=== PATIENT | male | born 1945 | race Caucasian/White ===

== ENCOUNTER → 2018-01-24 16:06 | Outpatient (CLI) | payer MEDICARE, OTHER, SELFPAY ==
--- NOTE | 2018-01-24 16:08 | DI.RAD.S_ITS ---
PROCEDURE: XR FOOT RT MIN 3V INDICATIONS: foot pain TECHNIQUE: 3 views of the foot were acquired. COMPARISON: None. FINDINGS: Bones: No fractures or dislocations. No suspicious bony lesions. Soft tissues: No tibiotalar joint effusion. Achilles tendon appears normal. IMPRESSION: No trauma found, no source of foot pain identified. Dictated by: Laurent Hirsch M.D. on 01/24/2018 at 16:49 Approved by: Laurent Hirsch M.D. on 01/24/2018 at 16:50
== END ==
PROVIDERS: PCP Internal Medicine; Visit Provider Internal Medicine
DX: M79.671 Pain in right foot (principal)
CPT/HCPCS: 73630

== ENCOUNTER → 2018-01-28 17:36 | Outpatient (CLI) | payer MEDICARE, OTHER, SELFPAY ==
--- NOTE | 2018-01-28 17:39 | DI.MRI.S_ITS ---
PROCEDURE: MR ANKLE LT WO CON INDICATIONS: ACHILLES TENDON PAIN LEFT ANKLE TECHNIQUE: Noncontrast sagittal T1 spin echo and T2 fast spin echo with fat saturation, axial proton density fast spin echo and T2 fast spin echo with fat saturation, coronal T1 spin echo and T2 fast spin echo with fat saturation through the ankle/hindfoot. COMPARISON: None. FINDINGS: Image quality: Excellent. Bones and joints: No bone marrow contusions or fractures. Presumed subchondral degenerative cystic change in the head of the talus. No hindfoot coalitions. No osteochondral injuries of the talar dome. No pathologic joint effusions. Medial structures: The posterior tibialis, flexor digitorum longus, and flexor hallucis longus tendons are intact. The posterior tibial neurovascular bundle appears normal within the tarsal tunnel, without extrinsic mass effect. The deep layer (anterior and posterior tibiotalar ligaments) and superficial layer (tibionavicular, tibiospring, and tibiocalcaneal ligaments) of the deltoid ligament appear normal. The spring ligament components (superomedial calcaneonavicular, medioplantar oblique calcaneonavicular, and inferoplantar longitudinal ligaments) are intact. Lateral structures: The anterior talofibular, calcaneofibular, and posterior talofibular ligaments appear intact. More superiorly, the anterior and posterior tibiofibular ligaments appear intact, as is the intermalleolar ligament. The tibiofibular syndesmosis is normal in width at 2 mm or less. The peroneus longus and brevis tendons demonstrate normal location and morphology. Adjacent bony peroneal tubercle and retrotrochlear prominence are normal in size. The sinus tarsi demonstrates normal fatty signal, without edema, fibrosis, or cyst formation. Visualized sinus tarsi components (cervical ligament, interosseous talocalcaneal ligament, roots of the inferior extensor retinaculum) appear normal. The calcaneonavicular and calcaneocuboid components of the bifurcate ligament appear intact. The dorsal calcaneocuboid ligament appears intact. Anterior structures: The tibialis anterior, extensor hallucis longus, and extensor digitorum longus tendons appear intact. The dorsal talonavicular ligament appears intact. There is anteromedial and anterolateral hindfoot subcutaneous edema. Posterior and plantar structures: Achilles tendon is markedly thickened and demonstrates intrasubstance signal change in T2 hyperintensity. There is a partial rupture centered approximately 6.2 cm above the calcaneal attachment. There is adjacent soft tissue edema and peritendinitis. Medial and lateral bands of the plantar fascia are of normal thickness. IMPRESSION: Partial rupture of the Achilles tendon centered approximately 6.2 cm above the calcaneal attachment. Dictated by: Clement Peter M.D. on 01/31/2018 at 8:59 Approved by: Clement Peter M.D. on 01/31/2018 at 9:09
== END ==
PROVIDERS: Family Provider Internal Medicine; PCP Internal Medicine; Visit Provider Internal Medicine
DX: M25.572 Pain in left ankle and joints of left foot (principal); S86.012A Strain of left Achilles tendon, initial encounter
CPT/HCPCS: 73721

== ENCOUNTER → 2018-09-05 10:38 | Outpatient (CLI) | payer MEDICARE, OTHER, SELFPAY ==
[2018-09-05 11:22] LABS: Add Manual Diff / Slide Review NO; Basophils Absolute Auto 0 /uL (0-100); Basophils Percent Auto 0.4 % (0-2); Eosinophils Absolute Auto 100 /uL (0-450); Eosinophils Percent Auto 1.6 % (2-4); Hematocrit 46.3 % (41-53); Hemoglobin 15.7 g/dL (13.5-17.5); Lymphocytes Absolute Auto 2100 /uL (1100-4500); Lymphocytes Percent Auto 29.2 % (25-40); Mean Corpuscular HGB Conc 33.8 % (30-36); Mean Corpuscular Hemoglobin 32.3 PG (26-34); Mean Corpuscular Volume 95.5 fL (80-100); Monocytes Absolute Auto 600 /uL (0-900); Monocytes Percent Auto 8.4 % (3-14); Neutrophils Absolute Auto 4400 /uL (1500-7000); Neutrophils Percent Auto 60.4 % (50-75); Platelet Count 225 X10^3/uL (150-400); Red Blood Cell Count 4.85 X10^6/uL (4.5-5.9); Red Cell Distribution Width 12.8 % (11.6-14.8); White Blood Cell Count 7.2 X10^3/uL (4.5-11.0)
[2018-09-05 11:43] LABS: Alanine Aminotransferase 42 IU/L (21-72); Albumin 4.2 g/dL (3.5-5.0); Albumin Globulin Ratio 1.4 (1.0-2.8); Alkaline Phosphatase 68 U/L (38-126); Aspartate Aminotransferase 36 IU/L (17-59); BUN Creatinine Ratio 17.5 (6-22); Blood Urea Nitrogen 14 mg/dL (9-20); Calcium 8.9 mg/dL (8.4-10.2); Carbon Dioxide 26 mmol/L (22-32); Chloride 102 mmol/L (98-107); Cholesterol 82 mg/dL (140-199); Estimated Glomerular Filt Rate > 60.0 mL/min (>60); Glucose 192 mg/dL (80-110); HDL Cholesterol 26 mg/dL (40-60); HEMOLYSIS 21 (0-50); LDL Cholesterol Calculated 14 mg/dL (<100); Sodium 139 mmol/L (137-145); Total Protein 7.2 g/dL (6.3-8.2); Triglycerides 209 mg/dL (35-150)
[2018-09-05 11:45] LABS: Potassium 5.5 mmol/L (3.4-5.1)
== END ==
PROVIDERS: Family Provider Internal Medicine; PCP Internal Medicine; Visit Provider Internal Medicine
DX: E11.65 Type 2 diabetes mellitus with hyperglycemia (principal); I48.1 Persistent atrial fibrillation; R97.20 Elevated prostate specific antigen [PSA]; Z79.01 Long term (current) use of anticoagulants
CPT/HCPCS: 36415; 80053; 80061; 83036; 84153; 85025

== ENCOUNTER 2018-10-19 07:43 | Day surgery (SDC) | payer MEDICARE, OTHER, SELFPAY ==
--- NOTE | 2018-10-15 12:17 | PM.PREOP ---
Pre-operative Note Interval Note History & Physical reviewed/Exam performed by Physician: Yes Changes to H&P: No
--- NOTE | 2018-10-15 12:18 | PM.OP.1 ---
Operative Date/Time/Diagnoses Date of procedure: 10/19/18 Time of procedure: 08:45 Procedure & Clinicians Procedure: Toric Preoperative diagnoses: 1. Advanced left nuclear sclerotic and cortical cataract. 2. Astigmatism which he likes to correct with a toric intra-ocular lens. 3. Diabetes without retinopathy. 4. Treated blepharitis preoperatively. 5. Atrial fibrillation on warfarin. Postoperative diagnoses: 1. Cataract removed by phacoemulsification with placement of posterior chamber intraocular lens. Procedure: Phacoemulsification with posterior chamber intraocular lens implant Surgeon: Franci Maldonado MD Complications: None Specimen: None Implant: [id number] +19.5 [place] 088 Blood loss: None Anesthesia: Retrobulbar with monitored standby Description of procedure: Patient presents with a complaint of decreased vision due to advanced cataract which is affecting activities of daily living. The patient wants surgery to improve vision. He has elevated fasting blood glucose on the day of surgery and 4 uits of insulin given per-operatively. He elects a toric intraocular lens. He is normally not on insulin. His INR is 2.2 and is felt safe to proceed with cataract surgery as planned. The patient was taken to the operating room and proparacaine drops placed then indelible ink means were placed at the 180 and 90 degree meridian using a special marking device. Was then placed on the operating room table and given IV sedation. A retrobulbar block consisting of 6 cc of 2% xylocaine without epinephrine mixed half and half with 0.5% Marcaine with 1 cc of hyaluronidase added is placed between the medial and lateral 1/3 of the inferior orbital rim. Lid akinesia is obtain with 1% xylocaine with epinephrine infiltrated along the lid margin. The eye is manually massaged for 30 sec, prepped using Betadine solution, and draped in the usual sterile fashion. Temporal approach was made, a 1 mm side-port incision was made 90? from the proposed clear corneal incision position. Phenylephrine 1.5% mixed with 1% xylocaine 0.2 cc was placed into the anterior chamber. The anterior capsule could be visualized without capsular dye. Viscoat followed by Kait was then placed. A 2.6 mm clear incision with a 2.6 mm blade was placed. A 360 degree capsulorrhexis style capsulotomy was then performed with a cystitome needle on a Healon aided by the capsular dye. Hydrodelineation and hydrodissection were performed. The phacoemulsification unit is introduced, and sculpting notice used to groove the central lens. It is then removed in chopping mode. Epi nucleus is removed with epinuclear mode and irrigation aspiration was used to remove the peripheral cortex. The posterior capsule is polished. The intraocular lens is selected, inspected, power confirmed, and placed in the posterior chamber at the 088 degree meridian and viscoelastic removed from the underside of the lens. This position was confirmed with multiple markers. The pupil was not constricted with Miostat. The wound was stromally hydrated and tested for leaks, there was none and it was left sutureless. Vigamox 0.1 cc was placed into the anterior chamber. Kenalog 0.2 cc was placed in the superior subconjunctival space. A drop of antibiotic and was placed and the eye was patched and shielded. The patient was stable and returned to the recovery room in excellent condition. Dictated by: Franci Maldonado MD Copy to: [facility]
[2018-10-19] MEDS: PROPARACAINE 0.5% OPHTH SOL 2 DROPS EYE-OP (08:08)
[2018-10-19 08:13] VITALS: BP 109/79; PULSE 59; RESP 15; TEMP 36.7; O2SAT 98; BMI 28.8
[2018-10-19] MEDS: CATARACT EYE COMPOUND (10 DROPS/SYRINGE) 3 DROPS EYE-OP (08:13)
[2018-10-19] MEDS: INSULIN REGULAR 100 UNIT/ML 3 ML VIAL IV (08:48)
[2018-10-19] MEDS: CHONDROIDTIN/SOD HYALURONATE 1.05 ML SYRINGE INTRAOCULA (09:23)
[2018-10-19] MEDS: BALANCED SALT IRRIG SOLN NO.2 15 ML IRR (09:24)
[2018-10-19] MEDS: MOXIFLOXACIN OPHTH DROPS 3 ML BOTTLE 2 DROPS INJ (09:25)
[2018-10-19] MEDS: LIDOCAINE 1% W/EPI INJ 20 ML INJ (09:25)
[2018-10-19] MEDS: OFLOXACIN 0.3% OPHTH 5 ML 2 DROPS EYE-LEFT (09:26)
[2018-10-19] MEDS: NEOMYCIN/POLY/DEX OPHTH OINT 1 APPLIC EYE-LEFT (09:26)
[2018-10-19] MEDS: PHENYLEPHRINE/LIDOCAINE VIAL (OR) 0.2 ML EYE-OP (09:27)
[2018-10-19] MEDS: TRIAMCINOLONE 50 MG/5 ML VIAL INJ (09:27)
[2018-10-19] MEDS: BALANCED SALT IRRIG SOLN NO.2 500 ML, EPINEPHrine 1 MG IRR (09:28)
[2018-10-19] MEDS: LIDOCAINE 2% 4 ML, BUPIVACAINE 0.5% (PF) 4 ML, HYALURONIDASE 150 UNIT INJ (09:29)
[2018-10-19] MEDS: HYALURONATE SODIUM 10 MG/ML SYRINGE INJ (09:51)
[2018-10-19 09:56] VITALS: BP 124/78; PULSE 95; RESP 15; TEMP 36.7; O2SAT 99
== END 2018-10-19 10:11 | disposition home or self-care (01) ==
PROVIDERS: Family Provider Internal Medicine; PCP Internal Medicine; Visit Provider Ophthalmology
DX: H25.812 Combined forms of age-related cataract, left eye (principal); E11.9 Type 2 diabetes mellitus without complications; I48.91 Unspecified atrial fibrillation; Z79.01 Long term (current) use of anticoagulants
CPT/HCPCS: J0171; J2704; J3301; J3470; V2787

== ENCOUNTER 2018-11-02 07:40 | Day surgery (SDC) | payer MEDICARE, OTHER, SELFPAY ==
--- NOTE | 2018-10-29 10:14 | PM.PREOP ---
Pre-operative Note Interval Note History & Physical reviewed/Exam performed by Physician: Yes Changes to H&P: No H&P completed within 30 days and has changed as indicated here:: INR 1.6 this AM and fasting glucose 162. Stable to proceed to surgery.
--- NOTE | 2018-10-29 10:51 | P.OP_ITS ---
Operative Date/Time/Diagnoses Date of procedure: 11/02/18 Time of procedure: 08:45 Procedure & Clinicians Procedure: Preoperative diagnoses: 1. Right nuclear sclerotic cataract 2. Astigmatism which is to be corrected with a toric intraocular lens implant. 3. Diabetes without retinopathy. 4. Atrial fibrillation on warfarin. Postoperative diagnoses: 1. Cataract removal with phacoemulsification with toric posterior chamber intraocular lens implant placed. Procedure: Phacoemulsification with posterior chamber toric intraocular lens implant. Surgeon: Franci Maldonado MD Complications: None Specimen: None Implant: [id number]+21.0 [place] 089 Blood loss: None Anesthesia: Retrobulbar with monitored standby Description of procedure: Patient presents with a complaint of decreased vision due to cataract which is affecting activities of daily living. The patient wants surgery to improve vision and astigmatism. He is diabetic with variable blood sugars and is not normally on insulin. He is also on warfarin when he reduced but did not eliminate for surgery. Both his INR and glucose were measured prior to surgery. The patient was taken to the operating room and proparacaine drops placed. Indelible ink means were placed at the 90 and 180 degree meridian. The patient was placed on the operating room table and given IV sedation. A retrobulbar block consisting of 6 cc of 2% xylocaine without epinephrine mixed half and half with 0.5% Marcaine with 1 cc of hyaluronidase added is placed between the medial and lateral 1/3 of the inferior orbital rim. Lid akinesia is obtain with 1% xylocaine with epinephrine infiltrated along the lid margin. The eye is manually massaged for 30 sec, prepped using Betadine solution, and draped in the usual sterile fashion. Temporal approach was made, a 1 mm side-port incision was made 90? from the prop osed corneal wound. Phenylephrine 1.5% mixed with 1% xylocaine 0.2 cc was placed into the anterior chamber. Viscoat followed by Kait was then placed. A 2.6 mm clear incision with a 2.6 mm blade was placed at the 170 degree meridian. A 360 degree capsulorrhexis style capsulotomy was then performed with a cystitome needle on a Healon. Hydrodelineation and hydrodissection were performed. The phacoemulsification unit is introduced, and sculpting used to groove the central lens. It is then removed in chopping mode. Epi nucleus is removed with epinuclear mode and irrigation aspiration was used to remove the peripheral cortex. The posterior capsule is polished. The intraocular lens is selected, inspected, power confirmed, and placed in the posterior chamber at the desired meridian of 089 degrees. The pupil was not constricted. The wound was stromally hydrated and tested for leaks, there was none and it was left sutureless. Vigamox 0.1 cc was placed into the anterior chamber. Kenalog 0.2 cc was placed in the superior subconjunctival space. A drop of antibiotic and was placed and the eye was patched and shielded. The patient was stable and returned to the recovery room in excellent condition. Dictated by: Franci Maldonado MD Copy to: [facility]
[2018-11-02 08:01] VITALS: BP 122/89; PULSE 78; RESP 15; TEMP 36.1; O2SAT 78; BMI 28.5
[2018-11-02] MEDS: PROPARACAINE 0.5% OPHTH SOL 2 DROPS EYE-OP (08:06)
[2018-11-02] MEDS: CATARACT EYE COMPOUND (10 DROPS/SYRINGE) 3 DROPS EYE-OP (08:11)
--- NOTE | 2018-11-02 09:01 | SUR.OPER ---
Supine on eye stretcher, head on extension cradle secured with tape. Arms tucked at sides with blanket. Pillow under knees.
[2018-11-02] MEDS: MOXIFLOXACIN OPHTH DROPS 3 ML BOTTLE 2 DROPS INJ (09:04)
[2018-11-02] MEDS: TRIAMCINOLONE 50 MG/5 ML VIAL INJ ×2 (09:04→09:05)
[2018-11-02] MEDS: CHONDROIDTIN/SOD HYALURONATE 1.05 ML SYRINGE INTRAOCULA (09:05)
[2018-11-02] MEDS: BALANCED SALT IRRIG SOLN NO.2 15 ML IRR (09:06)
[2018-11-02] MEDS: HYALURONATE SODIUM 10 MG/ML SYRINGE INJ (09:06)
[2018-11-02] MEDS: NEOMYCIN/POLY/DEX OPHTH OINT 1 APPLIC EYE-RIGHT (09:07)
[2018-11-02] MEDS: OFLOXACIN 0.3% OPHTH 5 ML 2 DROPS EYE-RIGHT (09:08)
[2018-11-02] MEDS: BALANCED SALT IRRIG SOLN NO.2 500 ML, EPINEPHrine 1 MG IRR (09:09)
[2018-11-02] MEDS: LIDOCAINE 1% W/EPI INJ 20 ML INJ (09:11)
[2018-11-02] MEDS: LIDOCAINE 2% 4 ML, BUPIVACAINE 0.5% (PF) 4 ML, HYALURONIDASE 150 UNIT INJ (09:12)
[2018-11-02 09:39] VITALS: BP 115/78; PULSE 88; RESP 16; TEMP 36.3; O2SAT 96
[2018-11-02 09:54] VITALS: BP 135/83; PULSE 86; RESP 15; TEMP 36.3; O2SAT 100
== END 2018-11-02 10:05 | disposition home or self-care (01) ==
LOC: OR 07:47
PROVIDERS: PCP Internal Medicine; Visit Provider Ophthalmology
DX: H25.11 Age-related nuclear cataract, right eye (principal); H52.201 Unspecified astigmatism, right eye; E11.9 Type 2 diabetes mellitus without complications; I48.91 Unspecified atrial fibrillation; Z79.01 Long term (current) use of anticoagulants
CPT/HCPCS: J0171; J2704; J3301; J3470; V2787

== ENCOUNTER → 2019-04-25 09:56 | Outpatient (CLI) | payer MEDICARE, OTHER, SELFPAY ==
[2019-04-25 11:36] LABS: Hemoglobin A1C% w Est Avg Glu 8.8 % (4.0-6.0)
[2019-04-25 11:44] LABS: Alanine Aminotransferase 38 IU/L (21-72); Albumin 4.1 g/dL (3.5-5.0); Albumin Globulin Ratio 1.4 (1.0-2.8); Alkaline Phosphatase 72 U/L (38-126); Aspartate Aminotransferase 40 IU/L (17-59); BUN Creatinine Ratio 17.5 (6-22); Bilirubin Unconjugated 0.8 mg/dL (0.0-1.1); Blood Urea Nitrogen 14 mg/dL (9-20); Calcium 8.9 mg/dL (8.4-10.2); Carbon Dioxide 26 mmol/L (22-32); Chloride 101 mmol/L (98-107); Cholesterol 79 mg/dL (140-199); Estimated Glomerular Filt Rate > 60.0 mL/min (>60); Globulin 2.9 g/dL (1.7-4.1); Glucose 214 mg/dL (80-110); HDL Cholesterol 26 mg/dL (40-60); HEMOLYSIS < 15 (0-50); LDL Cholesterol Calculated 6 mg/dL (<100); Potassium 4.9 mmol/L (3.4-5.1); Sodium 138 mmol/L (137-145); Triglycerides 237 mg/dL (35-150)
[2019-04-25 12:16] LABS: Prostate Specific Antigen 9.91 ng/mL (0.10-4.00)
== END ==
PROVIDERS: PCP Internal Medicine; Visit Provider Internal Medicine
DX: E78.2 Mixed hyperlipidemia (principal); R97.20 Elevated prostate specific antigen [PSA]; E11.65 Type 2 diabetes mellitus with hyperglycemia
CPT/HCPCS: 36415; 80048; 80061; 80076; 83036; 84153

== ENCOUNTER → 2019-09-01 08:50 | Outpatient (CLI) | payer MEDICARE, OTHER, SELFPAY ==
--- NOTE | 2019-09-01 | DI.ECHO.S_ITS ---
[place] [facility] +---------+ [facility] +---------+ : : [address] : [address] : : : : [id number] : : : : Phone: [phone]+ Echocardiogram Report + + :Name: HI LOERA Study Date: 09/01/2019 Height: 72 in : :[facility] 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 Mild concentric left ventricular hypertrophy with ejection fraction 30-35%. There is moderate global hypokinesis of the left ventricle. Normal right ventricle size with moderately reduced right ventricular systolic function. Severely dilated both atria. Severe aortic stenosis. The peak aortic velocity is 3.4 m/sec. The calculated aortic valve area is 0.85 cm2. Mild aortic regurgitation. Mild mitral annular calcification. Mild mitral regurgitation. Mild tricuspid regurgitation. The right ventricular systolic pressure is estimated to be at least 28 mmHg based on an estimated right atrial pressure of 3 mm Hg. Moderate-severely enlarged ascending aorta (4.7 cm). Mildly enlarged aortic arch. Procedure: A two-dimensional transthoracic echocardiogram with color flow and Doppler was performed. The study quality was technically adequate. There is no prior echocardiogram noted for this patient. The patient was in atrial fibrillation with heart rates between 72-116 bpm during the exam. Left Ventricle: The left ventricle is normal in size. There is mild concentric left ventricular hypertrophy. There is no ventricular septal defect visualized. The ejection fraction is estimated to be 30-35%. There is moderate global hypokinesis of the left ventricle. Diastolic function could not be accurately assessed due to atrial fibrillation. Right Ventricle: The right ventricle is normal size. Right ventricular systolic function is moderately reduced. Atria: Both atria are severely dilated. There is no Doppler evidence for an interatrial shunt. Mitral Valve: There is mild mitral annular calcification. The mitral valve chordae are thickened and/or calcified. The mitral valve leaflets are mildly calcified. There is mild mitral regurgitation. Aortic Valve: The aortic valve is trileaflet. The aortic valve is moderately calcified. There is severe aortic stenosis. The peak aortic velocity is 3.4 m/sec. The aortic valve mean gradient is 26.1 mmHg. The calculated aortic valve area is 0.85 cm2. There is mild aortic regurgitation. Tricuspid Valve: The tricuspid valve leaflets are thin and pliable. There is mild tricuspid regurgitation. The right ventricular systolic pressure is estimated to be at least 28 mmHg based on an estimated right atrial pressure of 3 mm Hg. Pulmonic Valve: The pulmonic valve is not well seen, but is grossly normal. There is trace pulmonic regurgitation. Great Vessels: The aortic root is normal size. The ascending aorta is moderate-severely enlarged. The aortic arch is mildly enlarged. The IVC is of normal diameter and collapses greater than 50% with a sniff. This suggests a low right atrial pressure of 3 mm Hg. Pericardium/ Pleura There is no pericardial effusion. MMode/2D Measurements & Calculations LVIDd: 5.5 cm LVOT diam: 2.5 cm LVIDs: 4.3 cm Ao root diam: 3.9 cm FS: 23.0 % Aortic Jxn: 3.5 cm EPSS: 1.5 cm asc Aorta Diam: 4.7 cm IVSd: 1.2 cm Ao Arch Diam (Prox Trans): 3.4 cm LVPWd: 1.0 cm LV younger. diameter/BSA (cm/m^2): 2.5 LV sys. diameter/BSA (cm/m^2): 2.0 LA A2 area: 31.0 cm2 RA long axis: 6.3 cm LA A4 area: 27.7 cm2 RA area: 28.2 cm2 LA length (vol): 6.0 cm RA vol: 107.2 ml LA vol: 121.3 ml RA : 49.3 ml/m2 LA vol index: 55.8 ml/m2 IVC diam: 1.3 cm RVD1 (basal): 3.8 cm RVD2 (mid): 2.9 cm ERICKA (plan): 1.8 cm2 TAPSE: 1.2 cm Doppler Measurements & Calculations Ao V2 max: 335.4 cm/sec LVOT Max Oscar: 70.9 cm/sec Ao V2 mean: 237.8 cm/sec LV V1 max P.1 mmHg Ao max P.5 mmHg LV V1 VTI: 13.4 cm Ao mean P.1 mmHg ERICKA(I,D): 0.85 cm2 Ao V2 VTI: 75.6 cm ERICKA(V,D): 1.0 cm2 sev ratio: 0.18 ERICKA indexed to BSA (cm^2/m^2): 0.39 AI P1/2t: 597.7 msec AI dec slope: 225.9 cm/sec2 MV E max oscar: 123.4 cm/sec TR max oscar: 251.7 cm/sec Med Peak E' Oscar: 4.6 cm/sec TR max P.4 mmHg E/E' med: 26.6 PA V2 max: 82.8 cm/sec Lat Peak E' Oscar: 8.7 cm/sec PA V2 mean: 48.8 cm/sec E/E' lat: 14.1 PA mean P.2 mmHg E/e' average: 20.4 PA Accel Time: 0.07 sec MVA(VTI): 2.5 cm2 MV V2 mean: 52.9 cm/sec SV(LVOT): 64.0 ml MV mean P.6 mmHg MV V2 VTI: 25.1 cm Electronically signed by: Stella Reyna on Reading Physician:09/01/2019 03:07 PM
== END ==
PROVIDERS: PCP Internal Medicine
DX: I08.3 Combined rheumatic disorders of mitral, aortic and tricuspid valves (principal)
CPT/HCPCS: 93306

== ENCOUNTER → 2020-07-15 11:30 | Outpatient (CLI) | payer MEDICARE, OTHER, SELFPAY ==
[2020-07-15 12:31] LABS: Hemoglobin A1C% w Est Avg Glu 8.6 % (4.0-6.0)
[2020-07-15 12:41] LABS: Alanine Aminotransferase 34 IU/L (<50); Albumin 4.1 g/dL (3.5-5.0); Albumin Globulin Ratio 1.4 (1.0-2.8); Alkaline Phosphatase 74 U/L (38-126); Aspartate Aminotransferase 37 IU/L (17-59); BUN Creatinine Ratio 24.1 (6-22); Blood Urea Nitrogen 20 mg/dL (9-20); Calcium 9.2 mg/dL (8.4-10.2); Carbon Dioxide 25 mmol/L (22-32); Chloride 101 mmol/L (98-107); Cholesterol 82 mg/dL (140-199); Estimated Glomerular Filt Rate > 60.0 mL/min (>60); Glucose 218 mg/dL (80-110); HDL Cholesterol 24 mg/dL (40-60); HEMOLYSIS < 15 (0-50); LDL Cholesterol Calculated 16 mg/dL (<100); Potassium 4.7 mmol/L (3.4-5.1); Sodium 133 mmol/L (137-145); Total Protein 7.1 g/dL (6.3-8.2); Triglycerides 211 mg/dL (35-150)
[2020-07-15 14:22] LABS: Prostate Specific Antigen 35.3 ng/mL (0.10-4.00)
== END ==
PROVIDERS: PCP Internal Medicine; Referring Provider Internal Medicine; Visit Provider Internal Medicine
DX: E11.65 Type 2 diabetes mellitus with hyperglycemia (principal); E78.2 Mixed hyperlipidemia; R97.20 Elevated prostate specific antigen [PSA]; I48.19 Other persistent atrial fibrillation
CPT/HCPCS: 36415; 80053; 80061; 83036; 84153

== ENCOUNTER → 2020-07-26 10:51 | Outpatient (CLI) | payer MEDICARE, OTHER, SELFPAY ==
[2020-07-26 13:05] LABS: Prostate Specific Antigen 33.4 ng/mL (0.10-4.00)
== END ==
PROVIDERS: PCP Internal Medicine; Referring Provider Internal Medicine; Visit Provider Internal Medicine
DX: R97.20 Elevated prostate specific antigen [PSA] (principal)
CPT/HCPCS: 36415; 84153

== ENCOUNTER → 2020-10-25 13:09 | Outpatient (CLI) | payer MEDICARE, OTHER, SELFPAY ==
--- NOTE | 2020-10-25 | DI.ECHO.S_ITS ---
[facility] +---------+ [facility] +---------+ : : [address] : [address] : : [place] [address] : : : : [id number] : : : : Phone: [phone]---------+ Echocardiogram Report + + :Name: HI LOERA Study Date: 10/25/2020 Height: 72 in : :[facility] ReadingLocation: Weight: 205 lb : : Gender: Male BSA: 2.2 m2 : :: 1945 Age: 74 yrs BP: 121/86 mmHg: :Reason For Study: Ischemic Cardiomyopathy, Aortic Stenosis : :Ordering Physician: Rosales : :Roderick Kirk Performed By: Eloisa Lizarraga : + + Interpretation Summary Left ventricular systolic function is mild??moderately reduced with an estimated ejection fraction of 40 to 50% with zzra-ob-clct variability and mild global hypokinesis and severe hypokinesis to akinesis with increased echogenicity of the majority inferolateral wall, extending into the proximal inferior wall, consistent with previous infarction and was present on the previous study although overall contractility has improved. Diastolic function remains challenging to assess in the presence of atrial fibrillation. There is mild concentric LVH which is similar to the previous exam. The right ventricle is borderline enlarged with mildly reduced systolic function but appears smaller and more dynamic compared to the previous study. Right ventricular systolic pressure is estimated at 32 mmHg with a CVP of 8 mmHg and is similar to the previous exam. The left atrium is severely enlarged while the right atrium is mildly enlarged. The latter measures significantly smaller compared to the previous exam. There is trace mitral and mild tricuspid regurgitation which are less prominent. There is probable moderate aortic stenosis, likely unchanged from the previous study with a peak velocity of 3.4 m/s and a mean gradient of 30 mmHg, compared to 3.4 m/s and 26 mmHg previously. The severity ratio is unchanged at 0.19 compared to 0.18 previously. There continues to be mild aortic regurgitation that is unchanged. The aortic root, ascending aorta, and aortic arch are all enlarged, measuring 4.2, 4.8, and 3.4 cm compared to 3.9, 4.7, and 3.4 cm previously. Patient was in atrial fibrillation generally at 90 to 110 bpm which is slightly faster compared to the previous study Procedure: A two-dimensional transthoracic echocardiogram with color flow and Doppler was performed. The study quality was technically adequate. Comparison is made with the echocardiogram of 09/01/2019. The patient was in atrial fibrillation with heart rates between 79-130 bpm during the exam. This is slightly faster compared to the previous study. Left Ventricle: The left ventricle is normal in size. There is mild concentric left ventricular hypertrophy. There is no ventricular septal defect visualized. Left ventricular systolic function is mild to moderately reduced. Left ventricular ejection fraction is estimated to be 40 to 50%. There is mild global hypokinesis of the left ventricle. There is severe hypokinesis to akinesis in the majority of the inferolateral wall, extending into the proximal inferior wall that was present on the previous study as well but overall contractility has improved. Diastolic function could not be accurately assessed due to atrial fibrillation. Right Ventricle: The right ventricle is at the upper limits of normal in size. Right ventricular systolic function is mildly reduced. This is smaller and more dynamic compared to the previous study. Atria: The left atrium is severely dilated. The right atrium is mildly dilated. The right atrium has mildly decreased in size since the prior echo exam. The interatrial septum grossly appears intact with no obvious evidence for an atrial septal defect. There is no Doppler evidence for an atrial septal defect. Mitral Valve: There is mild mitral annular calcification. The mitral valve chordae are thickened and/or calcified. There is trace mitral regurgitation. Aortic Valve: The aortic valve is trileaflet. The aortic valve is moderately calcified. There is moderately reduced leaflet mobility. There is moderate aortic stenosis. This is unchanged compared to the previous study. The peak aortic velocity is 3.4 m/sec. The peak aortic velocity on the previous exam was 3.4 m/sec. The aortic valve mean gradient is 30 mmHg. The calculated aortic valve area is 0.78 cm2. There is mild aortic regurgitation. Tricuspid Valve: The tricuspid valve leaflets are thin and pliable. There is mild tricuspid regurgitation. This is less prominent compared to the previous study. The right ventricular systolic pressure is estimated to be at least 32 mmHg based on an estimated right atrial pressure of 8 mm Hg. This is unchanged compared to the previous study. Pulmonic Valve: The pulmonic valve is not well visualized. Great Vessels: The aortic root is borderline dilated. The ascending aorta is moderately enlarged. The aortic arch is mildly enlarged. This is unchanged compared to the previous study. The IVC is of normal diameter and collapses less than 50% with a sniff. This suggests a right atrial pressure of 8 mm Hg. Pericardium/ Pleura There is no pericardial effusion. MMode/2D Measurements & Calculations LVIDd: 5.2 cm LVOT diam: 2.3 cm LVIDs: 3.8 cm Ao root diam: 4.2 cm FS: 25.4 % asc Aorta Diam: 4.8 cm EPSS: 1.6 cm Ao Arch Diam (Prox Trans): 3.4 cm IVSd: 1.4 cm LVPWd: 1.6 cm LV younger. diameter/BSA (cm/m^2): 2.4 LV sys. diameter/BSA (cm/m^2): 1.8 LA A2 area: 32.7 cm2 RA long axis: 7.2 cm LA A4 area: 31.8 cm2 RA area: 25.6 cm2 LA length (vol): 7.0 cm RA vol: 77.7 ml LA vol: 126.4 ml RA : 36.1 ml/m2 LA vol index: 58.7 ml/m2 IVC diam: 1.8 cm RVD1 (basal): 4.2 cm TAPSE: 1.0 cm Doppler Measurements & Calculations Ao V2 max: 341.7 cm/sec LVOT Max Oscar: 74.8 cm/sec Ao V2 mean: 257.3 cm/sec LV V1 max P.3 mmHg Ao max P.2 mmHg LV V1 VTI: 11.8 cm Ao mean P.6 mmHg ERICKA(I,D): 0.78 cm2 Ao V2 VTI: 61.5 cm ERICKA(V,D): 0.89 cm2 sev ratio: 0.19 ERICKA indexed to BSA (cm^2/m^2): 0.36 AI P1/2t: 672.7 msec AI dec slope: 168.1 cm/sec2 MV E max oscar: 130.5 cm/sec TR max oscar: 245.6 cm/sec MV A max oscar: 0.44 cm/sec TR max P.2 mmHg MV E/A: 293.5 PA V2 max: 89.9 cm/sec Med Peak E' Oscar: 4.7 cm/sec PA V2 mean: 59.8 cm/sec E/E' med: 27.9 PA mean P.6 mmHg Lat Peak E' Oscar: 7.1 cm/sec PA pr(Accel): 52.0 mmHg E/E' lat: 18.3 E/e' average: 23.1 MV dec time: 0.25 sec [facility]): 47.9 ml Reading Physician:04:32 PM
== END ==
PROVIDERS: PCP Internal Medicine; Visit Provider Specialist
DX: I08.2 Rheumatic disorders of both aortic and tricuspid valves (principal); I77.89 Other specified disorders of arteries and arterioles; I25.5 Ischemic cardiomyopathy; I48.91 Unspecified atrial fibrillation
CPT/HCPCS: 93306

== ENCOUNTER → 2021-01-23 10:00 | Outpatient (CLI) | payer MEDICARE, OTHER, SELFPAY ==
[2021-01-23 11:09] LABS: Hemoglobin A1C% w Est Avg Glu 8.6 % (4.0-6.0)
[2021-01-23 11:11] LABS: Alanine Aminotransferase 33 IU/L (<50); Albumin Globulin Ratio 1.4 (1.0-2.8); Alkaline Phosphatase 75 U/L (38-126); Aspartate Aminotransferase 35 IU/L (17-59); BUN Creatinine Ratio 17.1 (6-22); Bilirubin Total 0.9 mg/dL (0.2-1.3); Blood Urea Nitrogen 12 mg/dL (9-20); Calcium 9.4 mg/dL (8.4-10.2); Carbon Dioxide 23 mmol/L (22-32); Chloride 102 mmol/L (98-107); Estimated Glomerular Filt Rate > 60.0 mL/min (>60); Globulin 2.8 g/dL (1.7-4.1); Glucose 247 mg/dL (80-110); HEMOLYSIS < 15 (0-50); Magnesium 1.7 mg/dL (1.6-2.3); Potassium 4.7 mmol/L (3.4-5.1); Sodium 134 mmol/L (137-145); Total Protein 6.8 g/dL (6.3-8.2)
[2021-01-23 11:35] LABS: Digoxin 1.2 ng/mL (0.8-2.0)
== END ==
PROVIDERS: PCP Internal Medicine; Referring Provider Specialist; Visit Provider Specialist
DX: E11.65 Type 2 diabetes mellitus with hyperglycemia (principal); Z12.5 Encounter for screening for malignant neoplasm of prostate; I48.20 Chronic atrial fibrillation, unspecified; I25.5 Ischemic cardiomyopathy
CPT/HCPCS: 36415; 80053; 80162; 83036; 83735; G0103

== ENCOUNTER → 2021-02-07 11:06 | Outpatient (CLI) | payer MEDICARE, OTHER, SELFPAY ==
[2021-02-09 17:48] LABS: Cholesterol, Total 96 mg/dL (100-199); HDL-Cholesterol 32 mg/dL (>39); HDL-Particle (Total) 27.8 umol/L (>=30.5); LDL Particle 404 nmol/L (<1000); LDL Size 19.6 nm (>20.5); LDL-Cholsterol 33 mg/dL (0-99); LP-IR Score 80 (<=45); Small LDL- Particle 311 nmol/L (<=527); Triglycerides 188 mg/dL (0-149)
== END ==
PROVIDERS: PCP Internal Medicine; Visit Provider Specialist
DX: E78.2 Mixed hyperlipidemia (principal)
CPT/HCPCS: 36415; 80061; 83704

== ENCOUNTER → 2021-03-04 09:25 | Outpatient (CLI) | payer MEDICARE, OTHER, SELFPAY ==
[2021-03-04 10:30] LABS: INR 1.7 (0.9-1.3)
== END ==
PROVIDERS: PCP Internal Medicine; Referring Provider Internal Medicine; Visit Provider Internal Medicine
DX: Z79.01 Long term (current) use of anticoagulants (principal)
CPT/HCPCS: 36415; 85610

== ENCOUNTER → 2021-08-28 08:07 | Outpatient (CLI) | payer MEDICARE, OTHER, SELFPAY ==
[2021-08-28 09:16] LABS: Alanine Aminotransferase 22 IU/L (<50); Albumin 4.3 g/dL (3.5-5.0); Albumin Globulin Ratio 1.4 (1.0-2.8); Alkaline Phosphatase 134 U/L (38-126); Aspartate Aminotransferase 33 IU/L (17-59); BUN Creatinine Ratio 21.6 (6-22); Bilirubin Total 0.6 mg/dL (0.2-1.3); Blood Urea Nitrogen 19 mg/dL (9-20); Calcium 9.4 mg/dL (8.4-10.2); Carbon Dioxide 21 mmol/L (22-32); Chloride 102 mmol/L (98-107); Cholesterol 76 mg/dL (140-199); Estimated Glomerular Filt Rate > 60.0 mL/min (>60); Glucose 207 mg/dL (80-110); HDL Cholesterol 29 mg/dL (40-60); HEMOLYSIS < 15 (0-50); LDL Cholesterol Calculated 4 mg/dL (<100); Magnesium 1.7 mg/dL (1.6-2.3); Potassium 4.4 mmol/L (3.4-5.1); Sodium 133 mmol/L (137-145); Total Protein 7.3 g/dL (6.3-8.2); Triglycerides 214 mg/dL (35-150)
[2021-08-28 10:10] LABS: Digoxin 1.6 ng/mL (0.8-2.0)
[2021-09-01 10:29] LABS: Cholesterol, Total 73 mg/dL (100-199); HDL-Cholesterol 27 mg/dL (>39); HDL-Particle (Total) 27.5 umol/L (>=30.5); LDL Particle <300 nmol/L (<1000); LDL-Cholsterol 16 mg/dL (0-99); LP-IR Score 92 (<=45); Small LDL- Particle 150 nmol/L (<=527); Triglycerides 189 mg/dL (0-149)
== END ==
PROVIDERS: PCP Internal Medicine; Referring Provider Specialist; Visit Provider Specialist
DX: I48.20 Chronic atrial fibrillation, unspecified (principal); E78.2 Mixed hyperlipidemia
CPT/HCPCS: 36415; 80053; 80061; 80162; 83704; 83735

== ENCOUNTER → 2021-09-30 08:55 | Outpatient (CLI) | payer MEDICARE, OTHER, SELFPAY ==
[2021-09-30 09:40] LABS: INR 3.1 (0.9-1.3)
== END ==
PROVIDERS: PCP Internal Medicine; Referring Provider Internal Medicine; Visit Provider Internal Medicine
DX: Z79.01 Long term (current) use of anticoagulants (principal)
CPT/HCPCS: 36415; 85610

== ENCOUNTER → 2021-11-03 10:11 | Outpatient (CLI) | payer MEDICARE, OTHER, SELFPAY ==
[2021-11-03 10:57] LABS: Alanine Aminotransferase 20 IU/L (<50); Albumin 4.2 g/dL (3.5-5.0); Albumin Globulin Ratio 1.4 (1.0-2.8); Alkaline Phosphatase 67 U/L (38-126); Aspartate Aminotransferase 32 IU/L (17-59); BUN Creatinine Ratio 17.9 (6-22); Bilirubin Total 0.6 mg/dL (0.2-1.3); Blood Urea Nitrogen 12 mg/dL (9-20); Carbon Dioxide 25 mmol/L (22-32); Chloride 102 mmol/L (98-107); Cholesterol 97 mg/dL (140-199); Estimated Glomerular Filt Rate > 60.0 mL/min (>60); Globulin 2.9 g/dL (1.7-4.1); Glucose 139 mg/dL (80-110); HDL Cholesterol 33 mg/dL (40-60); HEMOLYSIS < 15 (0-50); LDL Cholesterol Calculated 12 mg/dL (<100); Magnesium 1.9 mg/dL (1.6-2.3); Potassium 4.6 mmol/L (3.4-5.1); Sodium 136 mmol/L (137-145); Total Protein 7.1 g/dL (6.3-8.2); Triglycerides 260 mg/dL (35-150)
== END ==
PROVIDERS: PCP Internal Medicine; Referring Provider Specialist; Visit Provider Specialist
DX: I48.20 Chronic atrial fibrillation, unspecified (principal); E78.2 Mixed hyperlipidemia
CPT/HCPCS: 36415; 80053; 80061; 83735

== ENCOUNTER → 2021-11-04 08:40 | Outpatient (CLI) | payer MEDICARE, OTHER, SELFPAY ==
--- NOTE | 2021-11-04 | DI.ECHO.S_ITS ---
[facility] +---------+ : : [address] : [address] : : : : [id number] : : : : Phone: [phone]---------+ Echocardiogram Report + + :Name: HI LOERA Study Date: 11/04/2021 Height: 71 in : :[facility] ReadingLocation: Weight: 185 lb : : Gender: Male BSA: 2.0 m2 : :: 1945 Age: 75 yrs BP: 138/77 mmHg: :Reason For Study: AORTIC STENOSIS : :Ordering Physician: TEJA, : :LA Performed By: Maggy Bonilla : :Referring: LA LEZAMA : + + Interpretation Summary Left ventricular systolic function remains mild to moderately reduced with an estimated ejection fraction of 40 to 50% with considerable opke-iw-jcar variability. There is a mild dyssynchronous contraction pattern and mild global hypokinesis that is worse in the inferolateral segments, particularly distally where it is nearly akinetic. This appears unchanged from the previous study. There is mild to moderate LVH that remains unchanged and diastolic function remains challenging to assess but is likely unchanged from the previous study. The right ventricle appears normal in size with probable mildly reduced systolic function and appears slightly smaller compared to the previous study. Right ventricular systolic pressure is estimated at 28 mmHg with a CVP of 3 mmHg and is likely essentially unchanged from the previous study. There is severe left atrial enlargement and mild right atrial enlargement and both are essentially unchanged from the previous study. There is mild mitral regurgitation that remains unchanged and mild to moderate tricuspid regurgitation that is slightly more prominent. There is severe aortic stenosis, likely progressive since the previous study with a peak transvalvular velocity of 4.1 m/s and a mean gradient of 42 mmHg, compared to 3.4 m/s and 30 mmHg, respectively, on the previous study. The severity ratio has fallen from 0.19 down to 0.18 but the calculated valve area has decreased from 0.9 sports equipment racker? to 0.6 sports equipment racker?. There is mild aortic regurgitation that is also slightly more prominent compared to the previous study. The ascending aorta remains moderate to severely enlarged and the aortic arch is mild to moderately enlarged but both are unchanged from the previous study. The patient was in atrial fibrillation at 72 to 96 bpm which is slightly slower compared to the previous study. Procedure: A two-dimensional transthoracic echocardiogram with color flow and Doppler was performed. The study quality was technically adequate. Comparison is made with the echocardiogram of 10/25/2020. The patient was in atrial fibrillation with heart rates between 72-96 bpm during the exam. This is slightly slower compared to the previous study. Left Ventricle: The left ventricle is normal in size. There is mild-moderate concentric left ventricular hypertrophy. Left ventricular systolic function is mild to moderately reduced. Left ventricular ejection fraction is estimated to be 40 to 50% with considerable txkr-wo-rhux variability due to atrial fibrillation. There is a mild dyssynchronous contraction pattern, consistent with a conduction abnormality. There is mild global hypokinesis of the left ventricle. This is worse in the inferolateral segments, especially in the distal posterolateral and apical segment which is nearly akinetic. This pattern appears unchanged from the previous study. Diastolic function could not be accurately assessed due to atrial fibrillation. This is likely unchanged compared to the previous study. There has been no significant change since the previous study. Right Ventricle: The right ventricle is normal size. Right ventricular systolic function is mildly reduced. This is slightly smaller compared to the previous study. Atria: The left atrium is severely dilated. The right atrium is mildly dilated. This is unchanged compared to the previous study. There is no Doppler evidence for an interatrial shunt. Mitral Valve: There is mild to moderate mitral annular calcification. There is mild calcification extending into the subvalvular apparatus. The mitral valve leaflets appear mildly thickened, but open well. There is mild mitral regurgitation. This is unchanged compared to the previous study. Aortic Valve: The aortic valve is severely calcified. There is moderate to severely reduced leaflet mobility. There is severe aortic stenosis. The peak aortic velocity is 4.12 m/sec. The aortic valve mean gradient is 42 mmHg. The calculated aortic valve area is .64 cm2. This is likely progressive compared to the previous study. There is mild aortic regurgitation. This is more prominent compared to the previous study. Tricuspid Valve: The tricuspid valve leaflets are thin and pliable. There is mild to moderate tricuspid regurgitation. This is more prominent compared to the previous study. The right ventricular systolic pressure is estimated to be at least 28 mmHg based on an estimated right atrial pressure of 3 mm Hg. This is unchanged compared to the previous study. Pulmonic Valve: The pulmonic valve leaflets are thin and pliable; valve motion is normal. There is a trace or physiologic amount of pulmonic regurgitation. Great Vessels: The aortic root is normal size. The ascending aorta is moderate-severely enlarged. The aortic arch is mild-moderately enlarged. This is unchanged compared to the previous study. The IVC is of normal diameter and collapses greater than 50% with a sniff. This suggests a low right atrial pressure of 3 mm Hg. Pericardium/ Pleura There is no pericardial effusion. There is no pleural effusion. MMode/2D Measurements & Calculations LVIDd: 5.3 cm LVOT diam: 2.2 cm LVIDs: 3.3 cm Ao root diam: 3.9 cm FS: 37.7 % asc Aorta Diam: 4.8 cm IVSd: 1.4 cm Ao Arch Diam (Prox Trans): 3.4 cm LVPWd: 1.3 cm LV younger. diameter/BSA (cm/m^2): 2.6 LV sys. diameter/BSA (cm/m^2): 1.6 LA A2 area: 34.8 cm2 RA long axis: 6.7 cm LA A4 area: 28.7 cm2 RA area: 24.6 cm2 LA length (vol): 6.7 cm RA vol: 77.5 ml LA vol: 126.5 ml RA : 38.0 ml/m2 LA vol index: 62.0 ml/m2 IVC diam: 1.2 cm RVD1 (basal): 3.7 cm RVD2 (mid): 3.1 cm TAPSE: 1.4 cm Doppler Measurements & Calculations Ao V2 max: 412.4 cm/sec LVOT Max Oscar: 70.5 cm/sec Ao V2 mean: 288.5 cm/sec LV V1 max P.0 mmHg Ao max P.2 mmHg LV V1 VTI: 13.8 cm Ao mean P.6 mmHg ERICKA(I,D): 0.67 cm2 Ao V2 VTI: 77.6 cm ERICKA(V,D): 0.64 cm2 sev ratio: 0.18 ERICKA indexed to BSA (cm^2/m^2): 0.33 AI P1/2t: 617.8 msec AI dec slope: 220.1 cm/sec2 MV E max oscar: 134.2 cm/sec TR max oscar: 250.5 cm/sec MV A max oscar: 0.99 cm/sec TR max P.1 mmHg MV E/A: 135.1 PA V2 max: 112.7 cm/sec Med Peak E' Oscar: 4.3 cm/sec PA V2 mean: 83.4 cm/sec E/E' med: 31.5 PA mean P.0 mmHg Lat Peak E' Oscar: 10.3 cm/sec PA pr(Accel): 25.9 mmHg E/E' lat: 13.0 E/e' average: 22.3 MV dec time: 0.28 sec SV(LVOT): 52.1 ml Reading Physician:[id number] PM
== END ==
PROVIDERS: PCP Internal Medicine; Referring Provider Specialist; Visit Provider Specialist
DX: I08.3 Combined rheumatic disorders of mitral, aortic and tricuspid valves (principal); I77.89 Other specified disorders of arteries and arterioles
CPT/HCPCS: 93306

== ENCOUNTER → 2022-02-13 09:00 | Outpatient (CLI) | payer MEDICARE, OTHER, SELFPAY ==
[2022-02-13 10:38] LABS: Alanine Aminotransferase 22 IU/L (<50); Albumin Globulin Ratio 1.5 (1.0-2.8); Alkaline Phosphatase 63 U/L (38-126); Aspartate Aminotransferase 36 IU/L (17-59); BUN Creatinine Ratio 18.6 (6-22); Bilirubin Total 0.7 mg/dL (0.2-1.3); Blood Urea Nitrogen 11 mg/dL (9-20); Calcium 9.1 mg/dL (8.4-10.2); Carbon Dioxide 25 mmol/L (22-32); Chloride 99 mmol/L (98-107); Cholesterol 98 mg/dL (140-199); Estimated Glomerular Filt Rate > 60 mL/min (>60); Globulin 2.6 g/dL (1.7-4.1); Glucose 111 mg/dL (80-110); HDL Cholesterol 35 mg/dL (40-60); HEMOLYSIS < 15 (0-50); LDL Cholesterol Calculated 13 mg/dL (<100); Potassium 4.8 mmol/L (3.4-5.1); Sodium 135 mmol/L (137-145); Total Protein 6.6 g/dL (6.3-8.2); Triglycerides 252 mg/dL (35-150)
[2022-02-13 10:43] LABS: Hemoglobin A1C% w Est Avg Glu 6.8 % (4.0-6.0)
[2022-02-13 11:12] LABS: Creatinine Urine Random 111.8 mg/dL
[2022-02-13 11:16] LABS: Microalbumi Creatinin Ratio Ur 105.5 ug/mg CR (<30); Microalbumin Urine Random 11.8 mg/dL (0-1.6)
== END ==
PROVIDERS: PCP Internal Medicine; Referring Provider Internal Medicine; Visit Provider Internal Medicine
DX: E11.9 Type 2 diabetes mellitus without complications (principal); E78.2 Mixed hyperlipidemia; I35.0 Nonrheumatic aortic (valve) stenosis; I48.20 Chronic atrial fibrillation, unspecified
CPT/HCPCS: 36415; 80053; 80061; 82043; 82570; 83036

== ENCOUNTER → 2022-03-20 10:12 | Outpatient (CLI) | payer MEDICARE, OTHER, SELFPAY ==
[2022-03-20 12:40] LABS: BUN Creatinine Ratio 15.6 (6-22); Blood Urea Nitrogen 10 mg/dL (9-20); Calcium 9.8 mg/dL (8.4-10.2); Carbon Dioxide 25 mmol/L (22-32); Chloride 101 mmol/L (98-107); Estimated Glomerular Filt Rate > 60 mL/min (>60); Glucose 141 mg/dL (80-110); HEMOLYSIS < 15 (0-50); Sodium 137 mmol/L (137-145)
[2022-03-20 12:47] LABS: Digoxin 2.1 ng/mL (0.8-2.0)
[2022-03-20 13:02] LABS: Potassium 5.9 mmol/L (3.4-5.1)
== END ==
PROVIDERS: Specialist; PCP Internal Medicine; Referring Provider Internal Medicine; Visit Provider Internal Medicine
DX: I25.5 Ischemic cardiomyopathy (principal); I48.20 Chronic atrial fibrillation, unspecified; I35.0 Nonrheumatic aortic (valve) stenosis
CPT/HCPCS: 36415; 80048; 80162; 83735

== ENCOUNTER → 2022-03-24 09:41 | Outpatient (CLI) | payer MEDICARE, OTHER, SELFPAY ==
[2022-03-24 12:03] LABS: Digoxin 1.2 ng/mL (0.8-2.0)
[2022-03-24 12:10] LABS: BUN Creatinine Ratio 18.6 (6-22); Blood Urea Nitrogen 13 mg/dL (9-20); Calcium 9.7 mg/dL (8.4-10.2); Carbon Dioxide 25 mmol/L (22-32); Chloride 97 mmol/L (98-107); Estimated Glomerular Filt Rate > 60 mL/min (>60); Glucose 136 mg/dL (80-110); HEMOLYSIS < 15 (0-50); Potassium 5.3 mmol/L (3.4-5.1); Sodium 136 mmol/L (137-145)
== END ==
PROVIDERS: PCP Internal Medicine; Referring Provider Specialist; Visit Provider Specialist
DX: Z79.899 Other long term (current) drug therapy (principal); E78.5 Hyperlipidemia, unspecified; Z51.81 Encounter for therapeutic drug level monitoring
CPT/HCPCS: 36415; 80048; 80162

== ENCOUNTER 2022-05-06 09:42 | Observation (INO) | payer MEDICARE, OTHER, SELFPAY ==
[2022-05-06] VITALS (28 sets, daily range): BP systolic 109–179; BP diastolic 56–86; PULSE 61–98; RESP 11–21; TEMP 36.3–37.2; O2SAT 98–100; BMI 25.1
--- NOTE | 2022-05-06 09:51 | DI.CT.S_ITS ---
PROCEDURE: CT ANGIO HEAD AND NECK INDICATIONS: difficulty speaking TECHNIQUE: After the administration of intravenous contrast, 1 mm thick sections acquired from the aortic arch through the [place] of [place]. Post-contrast 4.5 mm thick sections then re-acquired from the foramen magnum to the vertex. For radiation dose reduction, the following was used: automated exposure control, adjustment of mA and/or kV according to patient size. COMPARISON: None. FINDINGS: Cerebral CT Angiogram: Internal carotid arteries: No acute findings. Intracranial ICA are patent with no significant stenosis. No occlusion. No aneurysm. Atherosclerotic vascular calcification noted without stenosis. Anterior cerebral arteries: Unremarkable. No significant stenosis. No occlusion. No aneurysm. Middle cerebral arteries: Unremarkable. No significant stenosis. No occlusion. No aneurysm. Posterior cerebral arteries: Unremarkable. No significant stenosis. No occlusion. No aneurysm. Basilar artery: Unremarkable. No significant stenosis. No occlusion. No aneurysm. Vertebral arteries: Unremarkable as visualized. Atherosclerotic vascular calcification noted involving the intradural portions without stenosis. Dural venous sinuses: Unremarkable given phase of enhancement. Other: Arterial phase brain parenchyma is unremarkable. Neck CT Angiogram: Internal carotid arteries: Atherosclerotic calcification both proximal internal carotid arteries results in less than 20% stenosis utilizing NASCET criteria. Common carotid arteries: Unremarkable. No significant stenosis. No dissection or occlusion. External carotid arteries: Unremarkable. No occlusion. Vertebral arteries: Moderate stenosis noted at the origin of the bilateral vertebral artery without occlusion. 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 Aortic Arch and Mediastinum: Partially visualized aortic arch unremarkable without evidence of aneurysm. Origins of the great vessels unremarkable. IMPRESSION: 1. No evidence of large vessel occlusion, aneurysm or vascular malformation in the head and neck. 2. Atherosclerotic vascular calcification results in less than 20% stenosis in the proximal bilateral internal carotid arteries as well as moderate stenosis at the origins of both vertebral arteries. Note: Any reported proximal ICA stenosis was calculated using NASCET guidelines. Approved by: Hunter Haley M.D. on 05/06/2022 at 9:39
--- NOTE | 2022-05-06 09:51 | DI.CT.S_ITS ---
PROCEDURE: CT STROKE INDICATIONS: difficulty speaking TECHNIQUE: Noncontrast 4.5 mm thick angled axial sections acquired from the foramen magnum to the vertex, with coronal reformats. For radiation dose reduction, the following was used: automated exposure control, adjustment of mA and/or kV according to patient size. COMPARISON: None. FINDINGS: Image quality: Excellent. CSF spaces: Basal cisterns are patent. No extra-axial fluid collections. The ventricles are symmetric in size and shape. Brain: No acute intracranial hemorrhage or mass effect. There is cerebral volume loss for age, with resultant ventricular and sulcal prominence. There are periventricular and deep white matter chronic small vessel ischemic changes. There is intracranial internal carotid artery and vertebral artery atherosclerosis. Skull and face: Calvarium and visualized facial bones appear intact, without suspicious lesions. Sinuses: Visualized sinuses and mastoids are clear. IMPRESSION: 1. No acute intracranial abnormality. 2. Diffuse age related cerebral parenchymal volume loss and chronic microvascular ischemic changes. Findings were discussed with the referring physician, Dr. Perry, by telephone on 05/06/2022 at 10:05 AM. This study fulfills neurological imaging criteria for inclusion or exclusion of acute stroke therapies based on available published neurological guidelines. Dictated by: Aaron Carlson M.D. on 05/06/2022 at 10:02 Approved by: Aaron Carlson M.D. on 05/06/2022 at 10:07
--- NOTE | 2022-05-06 09:52 | DI.RAD.S_ITS ---
PROCEDURE: XR CHEST 1V INDICATIONS: stroke TECHNIQUE: One view of the chest was acquired. COMPARISON: [facility], , CHEST 2 VIEW, 03/19/2017, 14:43. FINDINGS: Surgical changes and devices: Median sternotomy wires and mediastinal clips. Lungs and pleura: Lungs are clear. No pleural effusions or pneumothorax. Mediastinum: Cardiac silhouette is at the upper limit of normal in size. Mediastinal and hilar contours appear similar to before. Bones and chest wall: No suspicious bony lesions. Overlying soft tissues appear unremarkable. IMPRESSION: No acute cardiopulmonary abnormality. Dictated by: Aaron Ingram M.D. on 05/06/2022 at 10:25 Approved by: Aaron Ingram M.D. on 05/06/2022 at 10:27
[2022-05-06 09:58] LABS: Add Manual Diff / Slide Review NO; Basophils Absolute Auto 0 /uL (0-100); Basophils Percent Auto 0.3 % (0-2); Eosinophils Absolute Auto 100 /uL (0-450); Eosinophils Percent Auto 1.2 % (2-4); Hematocrit 42.8 % (41-53); Hemoglobin 14.9 g/dL (13.5-17.5); Lymphocytes Absolute Auto 1200 /uL (1100-4500); Lymphocytes Percent Auto 15.8 % (25-40); Mean Corpuscular HGB Conc 34.8 % (30-36); Mean Corpuscular Hemoglobin 33.7 PG (26-34); Mean Corpuscular Volume 96.8 fL (80-100); Monocytes Absolute Auto 800 /uL (0-900); Monocytes Percent Auto 10.6 % (3-14); Neutrophils Absolute Auto 5400 /uL (1500-7000); Neutrophils Percent Auto 72.1 % (50-75); Platelet Count 265 X10^3/uL (150-400); Red Blood Cell Count 4.42 X10^6/uL (4.5-5.9); Red Cell Distribution Width 13.1 % (11.6-14.8); White Blood Cell Count 7.5 X10^3/uL (4.5-11.0)
--- NOTE | 2022-05-06 10:03 | ED_ITS ---
HPI - Neuro Symptoms/Deficit General Chief Complaint: Neuro Symptoms/Deficit Stated Complaint: Thinks stroke Time Seen by Provider: 05/06/22 09:51 Source: patient and family Mode of arrival: Ambulatory History of Present Illness HPI Narrative: Patient is a 76-year-old male history of atrial fibrillation on digoxin and warfarin presenting today with difficulty speaking. states that around 8:00 a.m., his last known well, he started having some blurry vision but no loss of vision. Approximately 30 minutes prior to arrival around 9:15 they were [address] in the car and she said she could not understand his words. She said it was slurred and gibberish. His speech has improved somewhat but he still is quite confused. No numbness tingling or weakness. No prior history of stroke On Anticoagulants: Yes (coumadin) Related Data Home Medications Medication Instructions Recorded Confirmed cholecalciferol (vitamin D3) 25 25 mcg PO DAILY 10/21/20 05/06/22 mcg (1,000 unit) capsule metoprolol succinate 50 mg 100 mg PO BID 10/21/20 05/06/22 tablet,extended release 24 hr atorvastatin 40 mg tablet (Lipitor) 20 mg PO HS 10/14/21 05/06/22 enzalutamide 80 mg tablet (Xtandi) 160 mg PO DAILY 10/14/21 05/06/22 magnesium oxide 400 mg (241.3 mg 400 mg PO DAILY 10/14/21 05/06/22 magnesium) tablet relugolix 120 mg tablet (Orgovyx) 120 mg PO DAILY 10/14/21 05/06/22 warfarin 5 mg tablet (Jantoven) See Rx Instructions .Route .COMPLEX 03/24/22 05/06/22 Previous Rx's Medication Instructions Recorded digoxin 125 mcg (0.125 mg) tablet 250 mcg PO QDAY #180 tabs 12/30/20 (Lanoxin) metformin 1,000 mg tablet 1,000 mg PO BIDCC #180 tabs 02/19/22 empagliflozin 10 mg tablet 10 mg PO DAILY #90 tabs 03/16/22 (Jardiance) Allergies Allergy/AdvReac Type Severity Reaction Status Date / Time No Known Drug Allergies Allergy Verified 05/06/22 09:57 Review of Systems Review of Systems Narrative: GENERAL: Denies chills, fatigue, malaise, fever, sweats, travel HEENT: Denies sinus pain, ear pain, sore throat, difficulty swallowing, neck pain RESPIRATORY: Denies dyspnea, cough, wheezing, hemoptysis, sputum. CARDIOVASCULAR: Denies chest pain, palpitations, orthopnea, edema GASTROINTESTINAL: Denies nausea, vomiting, abdominal pain, diarrhea, constipation, melena. : Denies dysuria, frequency, incontinence, hematuria, urinary retention, flank pain. MUSCULOSKELETAL: Denies weakness, joint pain, or bony pain SKIN: No rash, no erythema, no pruritus NEUROLOGIC: See HPI PSYCHIATRIC: No concerning psychosocial issues. 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 Grandfather No problems noted. Social History marital status: number of children: 2 household members: spouse Smoking Status: Former smoker alcohol intake: current caffeine: No Smoking Status: Former smoker alcohol intake frequency: 0-2 drinks per day Substance Use Type: does not use Exam Initial Vital Signs Initial Vital Signs: Vital Signs Temperature 97.4 F L 05/06/22 09:45 Pulse Rate 98 H 05/06/22 09:45 Respiratory Rate 18 05/06/22 09:45 Blood Pressure 121/86 05/06/22 09:45 Pulse Oximetry 99 05/06/22 09:45 Oxygen Delivery Method 05/06/22 09:45 GENERAL: Alert 76-year-old male HEENT: Head atraumatic,EOMI, pupils reactive, face symmetric, [moist] mucous membranes CARDIOVASCULAR: Regular rate and rhythm without murmurs, rubs or gallops. RESPIRATORY: Breath sounds equal bilaterally, no wheezes rales or rhonchi. ABDOMEN: Soft, nontender. Normoactive bowel sounds all 4 quadrants. No guarding or rebound. EXTREMITIES: Normal range of motion, no clubbing or edema. Neurovascularly intact NEUROLOGICAL: Alert and oriented x4.Normal gait and speech. Cranial nerves II through XII grossly intact. [Good [id number], good kthy-[id number], strength equal bilaterally, no dysarthria or aphasia, sensation in tact to soft touch bilaterally, no visual changes, no facial droop] SKIN: Warm, dry, no laceration, no petechiae, no rashes or lesions. Scores NIH Stroke Scale Level of Conciousness: Alert, keenly responsive Ask month/age: Answers both questions correctly. Open/close eyes, close hand: Performs both tasks correctly Best gaze horizontal: Normal Visual hernandez: No visual loss Facial palsy: Normal symetrical movement Left arm drift: No drift for full 10 sec Right arm drift: No drift for full 10 sec Left leg drift: No drift for full 5 sec Right leg drift: No drift for full 5 sec Limb ataxia: Absent Sensory on face/arms/legs: Normal, no sensory loss Best language: Mild to moderate, slurs some words Dysarthria: Mild to mod,some slurring Extinction or inattention: No abnormality Total NIH Stroke scale score: 2 Course Orders Ordered: ED Orders 05/06/22 11:30 MR head/brain wo con Stat 05/06/22 11:30 US carotid doppler BI Stat 05/06/22 12:13 Consult to Discharge Planning Routine Consult to Occupational Therapy Evaluate & Treat Consult to Occupational Therapy Evaluate & Treat Consult to Physical Therapy Evaluate & Treat Consult to Physical Therapy Evaluate & Treat Education, smoking cessation ONGOING Education, smoking cessation ONGOING 05/07/22 05:00 Complete Blood Count AUTO DIFF Routine Comprehensive Metabolic Panel Routine Lipid Panel Routine Prothrombin Time INR Routine Acetaminophen (Acetaminophen 325 Mg Tablet) 650 mg PO Q6HR PRN PRN Reason: Fever/Mild Pain (1-3) Atorvastatin Calcium (Atorvastatin 20 Mg Tablet) 20 mg PO BEDTIME [facility] Dextrose (Dextrose 50 % In Water 25 Gm/50 Ml Syringe) 25 gm IV PRN PRN PRN Reason: Hypoglycemia Digoxin (Digoxin 0.125 Mg Tablet) 0.25 mg PO DAILY [facility] Insulin Human Lispro (Insulin Lispro 100 Unit/Ml 3ml Vial) 0 unit SUBCUT ACHS [facility]; Protocol Last Admin: 05/06/22 17:12 Dose: 1 unit Documented By: OPAL Co-signed By: Admin: 05/06/22 12:31 Dose: Not Given Documented By: BT Metoprolol Succinate (Metoprolol Er 50 Mg Tablet) 100 mg PO BID [facility] Empagliflozin [ Jardiance] 10 Mg Tablet 10 mg PO DAILY [facility] Enzalutamide [Xtandi (] 80 Mg Tablet) 160 mg PO DAILY [facility] Relugolix [Orgovyx] (120 Mg Tablet) 120 mg PO DAILY [facility] Stored In Pharmacy 0 each PO PRN PRN PRN Reason: . Warfarin Sodium (Warfarin 5 Mg Tablet) 10 mg PO DAILY@1700 [facility] Discontinued Medications Sodium Chloride (Normal Saline 0.9%) 1,000 mls @ 150 mls/hr IV CONT [facility] Last Admin: 05/06/22 10:26 Dose: Not Given Documented By: USHA Warfarin Sodium (Warfarin 5 Mg Tablet) 10 mg PO DAILY [facility] Last Admin: 05/06/22 12:38 Dose: 10 mg Documented By: BT Vital Signs Vital signs: Vital Signs - 8 hr 05/06/22 11:25 05/06/22 11:30 05/06/22 11:30 Pulse Rate 79 76 Respiratory Rate 11 L Blood Pressure 142/69 H Pulse Oximetry 100 100 MDM - Neuro Symptoms/Deficit Lab Data Result diagrams: 05/06/22 09:51 05/06/22 09:51 Labs: Lab Results 05/06/22 05/06/22 05/06/22 Range/Units 09:51 09:51 09:51 WBC 7.5 (4.5-11.0) X10^3/uL RBC 4.42 L (4.5-5.9) X10^6/uL Hgb 14.9 (13.5-17.5) g/dL Hct 42.8 (41-53) % MCV 96.8 (80-100) fL MCH 33.7 (26-34) PG MCHC 34.8 (30-36) % RDW 13.1 (11.6-14.8) % Plt Count 265 (150-400) X10^3/uL Neut % (Auto) 72.1 (50-75) % Lymph % (Auto) 15.8 L (25-40) % [place] % (Auto) 10.6 (3-14) % Eos % (Auto) 1.2 L (2-4) % Baso % (Auto) 0.3 (0-2) % Neut # (Auto) 5400 (6137-5830) /uL Lymph # (Auto) 1200 (0617-5337) /uL [place] # (Auto) 800 (0-900) /uL Eos # (Auto) 100 (0-450) /uL Baso # (Auto) 0 (0-100) /uL PT 25.9 H (10.1-12.7) SECONDS INR 2.2 H (0.9-1.3) APTT 52 H (26-36) SECONDS Sodium 135 L (137-145) mmol/L Potassium 4.9 (3.4-5.1) mmol/L Chloride 98 (98-107) mmol/L Carbon Dioxide 21 L (22-32) mmol/L BUN 12 (9-20) mg/dL Creatinine 0.72 (0.66-1.25) mg/dL Estimated GFR > 60 (>60) mL/min BUN/Creatinine Ratio 16.7 (6-22) Glucose 109 (80-110) mg/dL Calcium 9.6 (8.4-10.2) mg/dL Total Bilirubin 0.9 (0.2-1.3) mg/dL AST 37 (17-59) IU/L ALT 22 (<50) IU/L Alkaline Phosphatase 64 (38-126) U/L Total Creatine Kinase 32 L (55-170) U/L CK-MB (CK-2) TNP CK-MB (CK-2) Rel Index TNP Troponin I 0.023 (0.01-0.034) ng/mL Total Protein 7.9 (6.3-8.2) g/dL Albumin 4.4 (3.5-5.0) g/dL Globulin 3.5 (1.7-4.1) g/dL Albumin/Globulin Ratio 1.3 (1.0-2.8) Lipase 85 (23-300) U/L Point of Care Testing Glucose POC [address] scan - head: Radiologist's Impression: CT Scan Report Signed Patient: Mehrdad Luna MR#: [id number] : 1945 Acct:[id number] Age/Sex: 76 / M Date of Service: 05/06/22 Loc: ED Accession Number: [id number] ?? Procedure: CT Stroke Ordering Provider: Lynn Perry D.O. PROCEDURE:? CT STROKE ? INDICATIONS:? difficulty speaking ? TECHNIQUE:? Noncontrast 4.5 mm thick angled axial sections acquired from the foramen magnum to the vertex, with coronal reformats.? For radiation dose reduction, the following was used:? automated exposure control, adjustment of mA and/or kV according to patient size.? ? COMPARISON:? None. ? FINDINGS:? Image quality:? Excellent.? ? CSF spaces:? Basal cisterns are patent.? No extra-axial fluid collections.? The ventricles are symmetric in size and shape.? ? Brain:? No acute intracranial hemorrhage or mass effect.? There is cerebral volume loss for age, with resultant ventricular and sulcal prominence.? There are periventricular and deep white matter chronic small vessel ischemic changes.? There is intracranial internal carotid artery and vertebral artery atherosclerosis.? ? Skull and face:? Calvarium and visualized facial bones appear intact, without suspicious lesions.? ? Sinuses:? Visualized sinuses and mastoids are clear.? ? IMPRESSION:? 1. No acute intracranial abnormality. 2. Diffuse age related cerebral parenchymal volume loss and chronic microvascular ischemic changes.? ? Findings were discussed with the referring physician, Dr. Perry, by telephone on 05/06/2022 at 10:05 AM. ? ? This study fulfills neurological imaging criteria for inclusion or exclusion of acute stroke therapies based on available published neurological guidelines.? ? ? Dictated by: Aaron Carlson M.D. on 05/06/2022 at 10:02 ? ? CTA - brain/neck: Radiologist's Impression: CT Scan Report Signed Patient: Mehrdad Luna MR#: [id number] : 1945 Acct:[id number] Age/Sex: 76 / M Date of Service: 05/06/22 Loc: ED Accession Number: [id number] ?? Procedure: CT angio head and neck Ordering Provider: Lynn Perry D.O. PROCEDURE:? CT ANGIO HEAD AND NECK ? INDICATIONS:? difficulty speaking ? TECHNIQUE:? After the administration of intravenous contrast, 1 mm thick sections acquired from the aortic arch through the [place].? Post-contrast 4.5 mm thick sections then re-acquired from the foramen magnum to the vertex.? For radiation dose reduction, the following was used:? automated exposure control, adjustment of mA and/or kV according to patient size.? ? COMPARISON:? None. ? FINDINGS: ? Cerebral CT Angiogram: ? Internal carotid arteries:? No acute findings.? Intracranial ICA are patent with no significant stenosis.? No occlusion.? No aneurysm.? Atherosclerotic vascular calcification noted without stenosis. ? Anterior cerebral arteries:? Unremarkable.? No significant stenosis.? No occlusion.? No aneurysm. ? Middle cerebral arteries:? Unremarkable.? No significant stenosis.? No occlusion.? No aneurysm. ? Posterior cerebral arteries:? Unremarkable.? No significant stenosis.? No occlusion.? No aneurysm. ? Basilar artery:? Unremarkable.? No significant stenosis.? No occlusion.? No aneurysm. ? Vertebral arteries:? Unremarkable as visualized.? Atherosclerotic vascular calcification noted involving the intradural portions without stenosis. ? Dural venous sinuses:? Unremarkable given phase of enhancement. ? Other:? Arterial phase brain parenchyma is unremarkable. ? Neck CT Angiogram: ? Internal carotid arteries:? Atherosclerotic calcification both proximal internal carotid arteries results in less than 20% stenosis utilizing NASCET criteria. ? Common carotid arteries:? Unremarkable.? No significant stenosis.? No dissection or occlusion. ? External carotid arteries:? Unremarkable.? No occlusion. ? Vertebral arteries:? Moderate stenosis noted at the origin of the bilateral vertebral artery without occlusion.? No aneurysm ? Other:? Degenerative disc disease and arthropathy in the lower cervical spine results in reversal normal cervical lordosis and moderate central stenosis at C6-7. ? Aortic Arch and Mediastinum:? Partially visualized aortic arch unremarkable without evidence of aneurysm. Origins of the great vessels unremarkable. ? IMPRESSION: ? 1. No evidence of large vessel occlusion, aneurysm or vascular malformation in the head and neck. ? 2. Atherosclerotic vascular calcification results in less than 20% stenosis in the proximal bilateral internal carotid arteries as well as moderate stenosis at the origins of both vertebral arteries. ? ? Note: Any reported proximal ICA stenosis was calculated using NASCET guidelines.? Approved by: Hunter Haley M.D. on 05/06/2022 at 9:39? Chest x-ray: Radiologist's Impression: RUSTAM Arriaga [id number] XRay Report Signed Patient: Mehrdad Luna MR#: [id number] : 1945 Acct:[id number] Age/Sex: 76 / M Date of Service: 05/06/22 Loc: ED Accession Number: [id number] ?? Procedure: XR chest 1V Ordering Provider: Lynn Perry D.O. PROCEDURE:? XR CHEST 1V ? INDICATIONS:? stroke ? TECHNIQUE:? One view of the chest was acquired.? ? COMPARISON:? [facility], , CHEST 2 VIEW, 03/19/2017, 14:43. ? FINDINGS:? ? Surgical changes and devices:? Median sternotomy wires and mediastinal clips. ? Lungs and pleura:? Lungs are clear.? No pleural effusions or pneumothorax.? ? Mediastinum:? Cardiac silhouette is at the upper limit of normal in size.? Mediastinal and hilar contours appear similar to before. ? Bones and chest wall:? No suspicious bony lesions.? Overlying soft tissues appear unremarkable.? ? IMPRESSION:? No acute cardiopulmonary abnormality. ? ? Dictated by: Aaron Ingram M.D. on 05/06/2022 at 10:25 ? ? ECG Data Interpretation: Atrial fibrillation rate [address] changes right bundle-branch block MDM Narrative Medical decision making narrative: Patient symptoms are concerning for stroke. Although his speech is certainly improving in the emergency department. After CT angio patient has returned back to normal. He has history of atrial fibrillation on therapeutic warfarin concerning for failed warfarin therapy. At this time patient is not candidate for tPA due to warfarin and improving symptoms. Dr. Krishnan updated patient's symptoms test results and kindly accepts patient for observation Discharge Plan Departure Patient Disposition: Admitted as Observation Clinical Impression: Transient cerebral ischemia Admit Date/Time: 05/06/22 11:32 Admit Provider: Oleksandr Krishnan
[2022-05-06 10:05] LABS: INR 2.2 (0.9-1.3); Prothrombin Time 25.9 SECONDS (10.1-12.7)
[2022-05-06 10:08] LABS: PTT Partial Thromboplastin Tim 52 SECONDS (26-36)
[2022-05-06 10:11] LABS: Alanine Aminotransferase 22 IU/L (<50); Albumin 4.4 g/dL (3.5-5.0); Albumin Globulin Ratio 1.3 (1.0-2.8); Alkaline Phosphatase 64 U/L (38-126); Aspartate Aminotransferase 37 IU/L (17-59); BUN Creatinine Ratio 16.7 (6-22); Bilirubin Total 0.9 mg/dL (0.2-1.3); Blood Urea Nitrogen 12 mg/dL (9-20); Calcium 9.6 mg/dL (8.4-10.2); Carbon Dioxide 21 mmol/L (22-32); Chloride 98 mmol/L (98-107); Creatine Kinase 32 U/L (55-170); Estimated Glomerular Filt Rate > 60 mL/min (>60); Globulin 3.5 g/dL (1.7-4.1); Glucose 109 mg/dL (80-110); HEMOLYSIS 24 (0-50); Lipase 85 U/L (23-300); Potassium 4.9 mmol/L (3.4-5.1); Sodium 135 mmol/L (137-145); Total Protein 7.9 g/dL (6.3-8.2)
[2022-05-06 10:24] LABS: Troponin I 0.023 ng/mL (0.01-0.034)
--- NOTE | 2022-05-06 11:30 | DI.MRI.S_ITS ---
PROCEDURE: MR HEAD/BRAIN WO CON INDICATIONS: nurological symptoms ??stroke TECHNIQUE: Non-contrast axial T1 spin echo, axial T2 fast spin echo, sagittal and axial FLAIR, coronal T2 fast spin echo, axial gradient echo, axial diffusion and ADC through the brain. COMPARISON: [facility], US, US CAROTID DOPPLER BI, 05/06/2022, 11:44. [facility], CT, CT STROKE, 05/06/2022, 9:57. [facility], CT, CT ANGIO HEAD AND NECK, 05/06/2022, 9:57. FINDINGS: Image quality: Excellent. CSF spaces: Ventricles appear symmetric in size and shape. Basal cisterns are patent. No extra-axial fluid collections. Brain: No intracranial bleeds or mass effects. There is cerebral volume loss for age. There are periventricular and deep white matter chronic small vessel ischemic changes. Brainstem appears normal. Diffusion-weighted images show no acute ischemic insults. No chronic ischemic insults. Normal intravascular flow voids are present. Skull and face: Calvarial bone marrow is normal in signal. Orbits are normal. Note is made of bilateral lens replacements. Sinuses: Sinuses and mastoids are clear. IMPRESSION: No findings of acute or subacute infarction can be seen. Note is made of age-appropriate brain parenchymal volume loss and chronic small vessel ischemic changes. Dictated by: Sterling Antunez M.D. on 05/06/2022 at 13:29 Approved by: Sterling Antunez M.D. on 05/06/2022 at 13:30
--- NOTE | 2022-05-06 11:30 | DI.US.S_ITS ---
PROCEDURE: US CAROTID DOPPLER BI INDICATIONS: neurological symptoms ?? stroke TECHNIQUE: Color and pulse Doppler interrogation was performed of both carotid systems, with image documentation and velocity measurements. COMPARISON: None. FINDINGS: Stenosis calculations are based on SRU (Society of Radiologists in Ultrasound) criteria. Right side: Brachial blood pressure: 417785 mm Hg. Common carotid artery peak systolic velocity: 92 cm/sec. Internal carotid artery peak systolic velocity: 101 cm/sec. Internal carotid artery end diastolic velocity: 18 cm/sec. External carotid artery peak systolic velocity: 74 cm/sec. ICA/CCA peak systolic ratio: 1.1 . Weinstein scale imaging description: Atherosclerotic plaque Percent internal carotid artery stenosis: Less than 50 . Vertebral artery: Flow direction is antegrade. Left side: Brachial blood pressure: 151/58 mm Hg. Common carotid artery peak systolic velocity: 99 cm/sec. Internal carotid artery peak systolic velocity: 63 cm/sec. Internal carotid artery end diastolic velocity: 15 cm/sec. External carotid artery peak systolic velocity: 135 cm/sec. ICA/CCA peak systolic ratio: 0.6 . Weinstein scale imaging description: Atherosclerotic plaque Percent internal carotid artery stenosis: Less than 50 . Vertebral artery: Flow direction is antegrade. IMPRESSION: Bilateral atherosclerotic plaque in the proximal internal carotid arteries without hemodynamically significant stenosis. Approved by: Hunter Haley M.D. on 05/06/2022 at 12:59
[2022-05-06] MEDS: WARFARIN 5 MG TABLET 10 MG PO (12:38)
[2022-05-06 13:20] LABS: COVID19 -Nasal RAPID Negative (Negative)
--- NOTE | 2022-05-06 13:35 | PT.IIE ---
Current Diagnoses Transient cerebral ischemic attack, unspecified (05/06/22) Surgical History (Last Reviewed 05/06/22 @ 14:59 by Oleksandr Krishnan MD) Anesthesia History of heart bypass surgery (~2013) History of tonsillectomy S/P prostatectomy (~02/20/21) Status post appendectomy Medical History (Last Reviewed 05/06/22 @ 14:59 by Oleksandr Krishnan MD) Anticoagulated on warfarin Aortic stenosis Chronic atrial fibrillation Controlled type 2 diabetes mellitus without complication Coronary artery disease involving [place] coronary artery without angina pectoris (04/03/16) Elevated prostate specific antigen (PSA) (06/18/16) Family history of prostate cancer in father Glaucoma Mixed hyperlipidemia (04/03/16) 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 Prostate cancer Tinnitus (~1984) Type 2 diabetes mellitus with hyperglycemia, without long-term current use of insulin (06/18/16) Physical Therapy Inpatient Evaluation/Re-Eval M1 PT/OT-IP Prior Functional Status Start: 05/06/22 15:04 Freq: NEEDED Status: Active Protocol: Document 05/06/22 13:35 AB (Rec: 05/06/22 15:18 AB [id number]) Medical Review Prior Functional Status Medical History Reviewed Yes Communication able to make needs known Mobility and Gait pt stated that he is modified independent with all mobilities and ambulation without AD but usually takes his SPC with him just in case per pt Social History Household Members spouse Living Arrangements House Number of Floors (Floors) Two Floors Number of Stairs To Enter/Railing? no steps to enter and pt stays on main level of the house Home Environment High Toilet,Walk in Shower Home Equipment Straight Cane,Shower Seat without Backrest,Grab Bars Near Toilet,Grab Bars In Shower M2 PT-IP Current Condition Start: 05/06/22 15:04 Freq: NEEDED Status: Active Protocol: Document 05/06/22 13:35 AB (Rec: 05/06/22 15:18 AB [email or web address]) Physical Therapy Current Condition Current Condition Evaluation Date 05/06/22 Treatment Diagnosis TIA; difficulty in walking Onset Date 05/06/22 M3 PT-IP Subjective Start: 05/06/22 15:04 Freq: NEEDED Status: Active Protocol: Document 05/06/22 13:35 AB (Rec: 05/06/22 15:18 AB [email or web address]) Subjective Physical Therapy Visit Type Type Initial Evaluation Visit Start Time 13:35 Visit Stop Time 13:46 Total Visit Minutes 11 Number of CORPORATE DIRECTOR TALENT ASSESSMENT Visits 0 Physical Therapy Visit Comments Patient Comments agreed to do PT but initially hesitant M4 PT-IP Mobility and Gait Start: 05/06/22 15:04 Freq: NEEDED Status: Active Protocol: Document 05/06/22 13:35 AB (Rec: 05/06/22 15:18 AB [email or web address]) PT-Bed Mobility Assessment Supine to Sit Supine to Sit Independent Sit to Supine Sit to Supine Independent PT-Transfer Assessment Sit to and From Stand Sit to and from Stand Standby Assistance,Use of Upper Extremities Equipment Transfer Assistive Device None Orthotic/Prosthetic Devices or Brace: No Transfers Transfer Destination Toilet Transfer Technique ambulated Transfer Ability Level of Assist Standby Assistance,Use of Upper Extremities Comments Mobility Comments checked on pt and pt questioning PT eval order but agreed to eval and requested to use the toilet. completed bed mobility mod I. completed sit to stand sBA and ambulated to the toilet without AD SBA. (+) RLE foot drop and presents with increase hip/ knee flexion swing phase to clear off the floor. pt completed toileting without assistance and ambulated towards the sink without AD SBA and was able to maintain standing SBA while completing handwashing. ambulated back to bed. completed sit to supine mod I. pt does not think he needs PT and pt agreed that he is at baseline. informed nurse. Gait Assessment Gait Gait Assistance Required: Standby Assistance Distance (Feet) 15 Able to Maintain Weight Bearing Status Yes During Gait Assistive Devices Assistive Device None Orthotic/Prosthetic Devices or Brace: No Gait Deviations General Gait Pattern Antalgic,Decreased Stride Length,Decreased Feet Clearance,Step-to Gait Factors Limiting Gait Function Factors Limiting Gait Function Decreased Sensation,Decreased Strength,Poor Balance PT-Balance Assessment Sitting Balance and Reactions Static Sitting Balance Ability Normal Dynamic Sitting Balance Ability Normal Standing Balance and Reactions Static Standing Balance Ability Good Dynamic Standing Balance Ability Good Device Used without AD M5 PT-IP Objective Assessments Start: 05/06/22 15:04 Freq: NEEDED Status: Active Protocol: Document 05/06/22 13:35 AB (Rec: 05/06/22 15:18 AB [email or web address]) Orientation Orientation/Cognition Level of Alertness Alert Orientation Name,Place,Situation Language Function Ability No Deficits Noted Safety Awareness Understands Safety Issues Memory Description No Deficits Noted Gross Range of Motion Lower Extremity ROM Assessment Within Functional Limits Strength Lower Extremity Strength Assessment Right Impaired Ankle 2-/5 Sensation Assessment Sensation Gross Sensation Right LE Impaired Sensation Description Numbness Comments Sensation Comments c/o chronic L foot numbness Muscle Tone Muscle Tone WNL Yes M6 PT-IP Treatment Start: 05/06/22 15:04 Freq: NEEDED Status: Active Protocol: Document 05/06/22 13:35 AB (Rec: 05/06/22 15:18 AB [email or web address]) Physical Therapy Treatment Education Education Provided Safety M7 PT-IP Assessment and Plan Start: 05/06/22 15:04 Freq: NEEDED Status: Active Protocol: Document 05/06/22 13:35 AB (Rec: 05/06/22 15:18 AB [email or web address]) PT Summary Assessment and Plan Potential Rehabilitation Potential Fair Status of Condition at Evaluation Stable Summary Impairments Strength,Gait Assessment Summary PT eval completed and no further PT intervention indicated. pt requiring SBA with transfers and ambulation without AD. SBA provided for safety but pt without LOB and is at prior level of function. pt has chronic R foot drop and pt able to manage and complensate with mobility despite R foot drop. Informed nurse regarding pt's mobility and no further PT needed at this time. Frequency of Treatment Frequency Of Treatment Discharge Recommendations To Nursing Amount of Assist Needed Standby Assistance Discharge Recommendations PT Discharge Recommendations Home Transportation Needs at Discharge Private Vehicle
--- NOTE | 2022-05-06 14:51 | P.HP_ITS ---
History of Present Illness History of Present Illness Date Patient Seen: 05/06/22 Time Patient Seen: 11:00 Chief complaint: Thinks stroke Narrative: 76-year-old male with a history of severe aortic stenosis chronic atrial fibrillation coronary artery disease cardiomyopathy and hyperlipidemia. Patient's states he woke up this morning with his usual state of health. He says after that his said he started talking funny knee had problems with his vision. Patient states he has really was not sure what was happening. His times in a provides the rest of the detailed history for him. She says the plan was to go to [place] later this morning for an evaluation by a physician. As they were working on getting up in getting ready all of a sudden he became concerned about his vision. He says his vision was different blurry he just could not focus. A few moments later patient then had a difficult time speaking. His said he was using words that were unclear are nonsensical. Trying to communicate effectively in was unable to do so. She became concerned enough that she thought the that they should counselor appointment. He is she then noticed that he got a little bit better and then got worse again. And that point became concerned enough that they brought him into the emergency department. She says over the ensuing time during the morning while waiting in getting to the emergency room symptoms were waxing and waiting but generally getting a little bit better. On arrival to the emergency department patient patient was having a little bit of confusion. His speech was much more clear. And over the time in the emergency department these resolved. By the time I evaluated patient patient was speaking clearly. He says he knows that there was an event this morning. But asked about going home. His said he had difficulty with word finding. And on clear vision. She says he peers to be acting normal but he was definitely different than what he was now. Patient currently has no plan complaints of chest pain no dizziness. No difficulty with balance coordination movement of extremities. Patient states he is hungry and would like to go have a hamburger and Pepsi. 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 Grandfather No problems noted. Social History: household members spouse Prior Living Arrangements House Safety & Behavioral: Feels Safe in Current Yes Environment Been Physically Hurt or No Threatened By a Person Tobacco & Substance use: Tobacco type cigarettes Smoking Status Former smoker alcohol intake current alcohol intake frequency 0-2 drinks per day Substance Use Type does not use Meds Home Medications and Allergies Home Medications Medication Instructions Recorded Confirmed Type cholecalciferol (vitamin D3) 25 25 mcg PO DAILY 10/21/20 05/06/22 History mcg (1,000 unit) capsule metoprolol succinate 50 mg 100 mg PO BID 10/21/20 05/06/22 History tablet,extended release 24 hr digoxin 125 mcg (0.125 mg) tablet 250 mcg PO QDAY #180 tabs 12/30/20 05/06/22 Rx (Lanoxin) atorvastatin 40 mg tablet (Lipitor) 20 mg PO HS 10/14/21 05/06/22 History enzalutamide 80 mg tablet (Xtandi) 160 mg PO DAILY 10/14/21 05/06/22 History magnesium oxide 400 mg (241.3 mg 400 mg PO DAILY 10/14/21 05/06/22 History magnesium) tablet relugolix 120 mg tablet (Orgovyx) 120 mg PO DAILY 10/14/21 05/06/22 History metformin 1,000 mg tablet 1,000 mg PO BIDCC #180 tabs 02/19/22 05/06/22 Rx empagliflozin 10 mg tablet 10 mg PO DAILY #90 tabs 03/16/22 05/06/22 Rx (Jardiance) warfarin 5 mg tablet (Jantoven) See Rx Instructions .Route .COMPLEX 03/24/22 05/06/22 History Allergies Allergy/AdvReac Type Severity Reaction Status Date / Time No Known Drug Allergies Allergy Verified 05/06/22 09:57 Exam Vital Signs (past 8 hours): - 05/06/22 09:45 05/06/22 10:04 05/06/22 10:05 Temperature 97.4 F L Pulse Rate 98 H 77 80 Respiratory Rate 18 12 16 Blood Pressure 121/86 Pulse Oximetry 99 100 100 Oxygen Delivery Method Room Air Oxygen Flow Rate 05/06/22 10:06 05/06/22 10:06 05/06/22 10:10 Temperature Pulse Rate 75 79 Respiratory Rate 14 12 Blood Pressure 162/79 H Pulse Oximetry 100 100 Oxygen Delivery Method Oxygen Flow Rate 05/06/22 10:15 05/06/22 10:20 05/06/22 10:25 Temperature Pulse Rate 78 78 78 Respiratory Rate 12 16 16 Blood Pressure Pulse Oximetry 100 100 100 Oxygen Delivery Method Oxygen Flow Rate 05/06/22 10:30 05/06/22 10:30 05/06/22 10:35 Temperature Pulse Rate 76 77 Respiratory Rate 16 12 Blood Pressure 179/79 H Pulse Oximetry 100 100 Oxygen Delivery Method Oxygen Flow Rate 05/06/22 10:40 05/06/22 10:45 05/06/22 11:12 Temperature Pulse Rate 75 75 80 Respiratory Rate 16 13 21 Blood Pressure Pulse Oximetry 100 100 100 Oxygen Delivery Method Oxygen Flow Rate 05/06/22 11:13 05/06/22 11:13 05/06/22 11:15 Temperature Pulse Rate 80 81 Respiratory Rate 12 12 Blood Pressure 144/67 H Pulse Oximetry 100 100 Oxygen Delivery Method Oxygen Flow Rate 05/06/22 11:20 05/06/22 11:25 05/06/22 11:30 Temperature Pulse Rate 77 79 Respiratory Rate 12 Blood Pressure 142/69 H Pulse Oximetry 100 100 Oxygen Delivery Method Oxygen Flow Rate 05/06/22 11:30 05/06/22 11:35 05/06/22 11:36 Temperature Pulse Rate 76 77 77 Respiratory Rate 11 L 16 Blood Pressure Pulse Oximetry 100 100 100 Oxygen Delivery Method Oxygen Flow Rate 05/06/22 11:36 05/06/22 11:37 05/06/22 11:37 Temperature Pulse Rate 78 Respiratory Rate 16 Blood Pressure 147/64 H 151/58 H Pulse Oximetry 100 Oxygen Delivery Method Oxygen Flow Rate 05/06/22 11:40 05/06/22 11:45 05/06/22 11:50 Temperature Pulse Rate 75 79 77 Respiratory Rate 15 13 14 Blood Pressure Pulse Oximetry 100 100 100 Oxygen Delivery Method Oxygen Flow Rate 05/06/22 11:55 05/06/22 12:13 Temperature 97.6 F Pulse Rate 74 61 Respiratory Rate 16 16 Blood Pressure 145/60 H Pulse Oximetry 100 99 Oxygen Delivery Method Oxygen Flow Rate 0 Oxygen Delivery Method Room Air Oxygen Flow Rate 0 Narrative Exam Narrative: General: Patient is alert good historian other than confusion about what h appened this morning moving all extremities HEENT: Pupils equal round and reactive or mucosa is moist neck is supple Cardio: S1-S2 irregular rhythm Respiratory: Lungs are clear to auscultation no wheezes or crackles Abdomen: Soft nontender no rebound or guarding extremity: Full range of motion no edema Cranial nerves 2-12 intact Objective Labs Result Diagrams: 05/06/22 09:51 05/06/22 09:51 Labs: Laboratory Results - last 24 hr 05/06/22 05/06/22 05/06/22 09:51 09:51 09:51 WBC 7.5 RBC 4.42 L Hgb 14.9 Hct 42.8 MCV 96.8 MCH 33.7 MCHC 34.8 RDW 13.1 Plt Count 265 Neut % (Auto) 72.1 Lymph % (Auto) 15.8 L [place] % (Auto) 10.6 Eos % (Auto) 1.2 L Baso % (Auto) 0.3 Neut # (Auto) 5400 Lymph # (Auto) 1200 [place] # (Auto) 800 Eos # (Auto) 100 Baso # (Auto) 0 PT 25.9 H INR 2.2 H APTT 52 H Sodium 135 L Potassium 4.9 Chloride 98 Carbon Dioxide 21 L BUN 12 Creatinine 0.72 Estimated GFR > 60 BUN/Creatinine Ratio 16.7 Glucose 109 Calcium 9.6 Total Bilirubin 0.9 AST 37 ALT 22 Alkaline Phosphatase 64 Total Creatine Kinase 32 L CK-MB (CK-2) TNP CK-MB (CK-2) Rel Index TNP Troponin I 0.023 Total Protein 7.9 Albumin 4.4 Globulin 3.5 Albumin/Globulin Ratio 1.3 Lipase 85 SARS-CoV-2 (PCR) 09/14/22 12:33 WBC RBC Hgb Hct MCV MCH MCHC RDW Plt Count Neut % (Auto) Lymph % (Auto) [place] % (Auto) Eos % (Auto) Baso % (Auto) Neut # (Auto) Lymph # (Auto) [place] # (Auto) Eos # (Auto) Baso # (Auto) PT INR APTT Sodium Potassium Chloride Carbon Dioxide BUN Creatinine Estimated GFR BUN/Creatinine Ratio Glucose Calcium Total Bilirubin AST ALT Alkaline Phosphatase Total Creatine Kinase CK-MB (CK-2) CK-MB (CK-2) Rel Index Troponin I Total Protein Albumin Globulin Albumin/Globulin Ratio Lipase SARS-CoV-2 (PCR) Negative Assessment & Plan Assessment and plan (1) Transient cerebral ischemia: Status: Acute Plan Transient cerebral ischemia patient with symptoms of difficulty with word-f inding and blurred vision consistent with underlying cerebral ischemia. Based on recent MRI findings does not appear to be acute cerebrovascular accident. Patient's care is complicated by being on chronic anticoagulation due to his underlying heart disease on warfarin. On arrival to the emergency department his INR is 2.2 so appropriately anticoagulated. In all likelihood this is probably due to atherosclerotic disease as opposed to embolic disease but I would like to repeat an echocardiogram to confirm this. He is currently on warfarin. His ABCD2 score is quite high at 5. He may be a candidate for adjustment of his anticoagulation either to a factor Xa inhibitor with an anti-platelet. This does put him at increased risk of bleeding. So we will continue to monitor him over the next 24-48 hours we will continue with physical therapy and occupational therapy. Monitor for worsening of his stroke-like symptoms. Manage his blood pressure appropriately as well as his blood sugars. Will continue the workup with an echocardiogram MRI and carotid ultrasound. Consider and doing a anti-platelet to his current anticoagulation and potentially changing to a factor Xa inhibitor. Atrial fibrillation patient with a history of intermittent atrial fibrillation on chronic anticoagulation INR is 2.2 will continue his warfarin at this point. Continue his digoxin monitor closely vital signs and heart rate. Coronary artery disease aortic stenosis cardiomyopathy. 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 Will continue with his current appropriate cardiovascular medications including digoxin metoprolol. Repeat echocardiogram because of his valvular heart disease and recent concerning TIA symptom Diabetes type 2. Patient is a type 2 diabetic. Will continue with his Jardiance 10 mg a day. Hold his metformin because of the contrast. Continue with insulin sliding scale coverage. Hypertension. Blood pressure is a little bit hypertensive at this point. Place patient back on SULY-inhibitor. Lisinopril 10 mg a day will be provided Prostate cancer continuing ongoing treatment. Continue prostate cancer treatment medication. Hyperlipidemia. Continue with statin recheck lipid panel here in the hospital. Code status full code Time Spent With Patient Critical Care time: I spent a total of [] minutes of critical care time on this patient's care today; this time is exclusive of procedural time. Quality VTE Deep Vein Thrombosis/Pulmonary Embolism Present on Admission: No
--- NOTE | 2022-05-06 14:51 | OT.IPNOTE ---
Attempted to see pt for OT eval and pt states, I am fine and do not need anything. Pt requesting to be discharged from OT services.
[2022-05-06] MEDS: INSULIN LISPRO 100 UNIT/ML 3ML VIAL SUBCUT (17:12)
[2022-05-06] MEDS: METOPROLOL ER 50 MG TABLET 100 MG PO (20:44)
[2022-05-06] MEDS: ATORVASTATIN 20 MG TABLET PO (20:44)
[2022-05-07 04:00] VITALS: BP 112/70; PULSE 80; RESP 15; TEMP 36.8; O2SAT 97
[2022-05-07 07:05] LABS: Add Manual Diff / Slide Review NO; Basophils Absolute Auto 0 /uL (0-100); Basophils Percent Auto 0.5 % (0-2); Eosinophils Absolute Auto 100 /uL (0-450); Eosinophils Percent Auto 1.8 % (2-4); Hematocrit 37.5 % (41-53); Hemoglobin 13.3 g/dL (13.5-17.5); Lymphocytes Absolute Auto 700 /uL (1100-4500); Lymphocytes Percent Auto 14.8 % (25-40); Mean Corpuscular HGB Conc 35.5 % (30-36); Mean Corpuscular Volume 95.9 fL (80-100); Monocytes Absolute Auto 500 /uL (0-900); Monocytes Percent Auto 11.2 % (3-14); Neutrophils Absolute Auto 3400 /uL (1500-7000); Neutrophils Percent Auto 71.7 % (50-75); Platelet Count 203 X10^3/uL (150-400); Red Blood Cell Count 3.91 X10^6/uL (4.5-5.9); Red Cell Distribution Width 13.1 % (11.6-14.8); White Blood Cell Count 4.7 X10^3/uL (4.5-11.0)
[2022-05-07 07:30] VITALS: BP 126/72; PULSE 81; RESP 18; TEMP 36.6; O2SAT 100
--- NOTE | 2022-05-07 07:33 | DI.ECHO.S_ITS ---
[facility]---------+ [facility] +---------+ : : [address] [place] : : : : [id number] : : : : Phone: [phone]+ Echocardiogram Report + + :Name: HI LOERA Study Date: 05/07/2022 Height: 70 in : :[facility] ReadingLocation: Weight: 175 lb : : Gender: Male BSA: 2.0 m2 : :: 1945 Age: 76 yrs BP: 145/60 mmHg: :Reason For Study: TIA : :Ordering Physician: BILL, : :HI Mcleod Performed By: Maggy Bonilla : :Referring: HI KHAN : + + Interpretation Summary The left ventricle is normal in size. There is moderate concentric left ventricular hypertrophy. Left ventricular systolic function is mildly reduced. Left ventricular ejection fraction is estimated to be 45%. This is unchanged compared to the previous study. There is a mild dyssynchronous contraction pattern and mild global hypokinesis that is worse in the inferolateral segments, particularly distally where it is nearly akinetic. There appears to be some calfication and thinning along the lateral wall consistent with prior infarct. This appears unchanged from the previous study. The right ventricle is borderline dilated. Right ventricular systolic function is mildly reduced. The right ventricular systolic pressure is estimated to be at least 25 mmHg based on an estimated right atrial pressure of 3 mm Hg. The left atrium is severely dilated. The right atrium is mildly dilated. There is mild to moderate mitral annular calcification. The mitral valve mean gradient is 3.5 mmHg. There is mild mitral regurgitation. The aortic valve is severely calcified. There is severe aortic stenosis. The peak aortic velocity is 4.5 m/sec. The peak aortic velocity on the previous exam was 4.1 m/sec. The aortic valve mean gradient is 48 mmHg. The calculated aortic valve area is 0.69 cm2. There is mild aortic regurgitation. There is mild to moderate tricuspid regurgitation. The aortic root is borderline dilated. The ascending aorta is moderately enlarged. The aortic arch is moderately enlarged. No obvious source for TIA beyond calcified AV and MV apparatus. Procedure: A two-dimensional transthoracic echocardiogram with color flow and Doppler was performed. The study quality was technically adequate. Comparison is made with the echocardiogram of 11/04/2021. The patient was in atrial fibrillation with heart rates between 68-82 bpm during the exam. Left Ventricle: The left ventricle is normal in size. There is moderate concentric left ventricular hypertrophy. Left ventricular systolic function is mildly reduced. Left ventricular ejection fraction is estimated to be 45%. This is unchanged compared to the previous study. There is a mild dyssynchronous contraction pattern and mild global hypokinesis that is worse in the inferolateral segments, particularly distally where it is nearly akinetic. This appears unchanged from the previous study. Diastolic function could not be accurately assessed due to atrial fibrillation. Right Ventricle: The right ventricle is borderline dilated. Right ventricular systolic function is mildly reduced. Atria: The left atrium is severely dilated. The right atrium is mildly dilated. There is no Doppler evidence for an interatrial shunt. Mitral Valve: The mitral valve leaflets appear mildly thickened, but open well. There is mild to moderate mitral annular calcification. The mitral valve mean gradient is 3.5 mmHg. There is mild mitral regurgitation. Aortic Valve: The aortic valve is severely calcified. There is severe aortic stenosis. The peak aortic velocity is 4.5 m/sec. The peak aortic velocity on the previous exam was 4.1 m/sec. The aortic valve mean gradient is 48 mmHg. The calculated aortic valve area is 0.69 cm2. There is mild aortic regurgitation. Tricuspid Valve: The tricuspid valve leaflets are thin and pliable. There is mild to moderate tricuspid regurgitation. The right ventricular systolic pressure is estimated to be at least 25 mmHg based on an estimated right atrial pressure of 3 mm Hg. Pulmonic Valve: The pulmonic valve is not well seen, but is grossly normal. There is mild pulmonic regurgitation. Great Vessels: The aortic root is borderline dilated. The ascending aorta is moderately enlarged. The aortic arch is moderately enlarged. The inferior vena cava was not well visualized. The IVC is of normal diameter and collapses greater than 50% with a sniff. This suggests a low right atrial pressure of 3 mm Hg. Pericardium/ Pleura There is no pericardial effusion. There is no pleural effusion. MMode/2D Measurements & Calculations LVIDd: 4.7 cm LVOT diam: 2.3 cm LVIDs: 2.9 cm Ao root diam: 4.0 cm FS: 37.9 % asc Aorta Diam: 4.8 cm IVSd: 1.4 cm Ao Arch Diam (Prox Trans): 3.8 cm LVPWd: 1.4 cm LV younger. diameter/BSA (cm/m^2): 2.4 LV sys. diameter/BSA (cm/m^2): 1.5 LA A2 area: 30.3 cm2 RA long axis: 7.0 cm LA A4 area: 24.6 cm2 RA area: 24.8 cm2 LA length (vol): 6.0 cm RA vol: 74.2 ml LA vol: 105.5 ml RA : 37.6 ml/m2 LA vol index: 53.5 ml/m2 IVC diam: 1.8 cm RVD1 (basal): 4.1 cm RVD2 (mid): 2.7 cm TAPSE: 1.2 cm Doppler Measurements & Calculations Ao V2 max: 449.7 cm/sec LVOT Max Oscar: 72.9 cm/sec Ao V2 mean: 308.1 cm/sec LV V1 max P.1 mmHg Ao max P.1 mmHg LV V1 VTI: 13.3 cm Ao mean P.4 mmHg ERICKA(I,D): 0.69 cm2 Ao V2 VTI: 81.9 cm ERICKA(V,D): 0.69 cm2 sev ratio: 0.16 ERICKA indexed to BSA (cm^2/m^2): 0.35 AI P1/2t: 903.9 msec AI dec slope: 132.6 cm/sec2 MV E max oscar: 126.3 cm/sec TR max oscar: 237.6 cm/sec MV A max oscar: 3.6 cm/sec TR max P.6 mmHg MV E/A: 35.3 PA V2 max: 112.9 cm/sec Med Peak E' Oscar: 3.4 cm/sec PA V2 mean: 79.9 cm/sec E/E' med: 36.8 PA mean P.9 mmHg Lat Peak E' Oscar: 7.2 cm/sec PA pr(Accel): 36.2 mmHg E/E' lat: 17.5 E/e' average: 27.1 MV dec time: 0.30 sec MVA(VTI): 1.6 cm2 MV V2 mean: 82.9 cm/sec SV(LVOT): 56.6 ml MV mean P.5 mmHg MV V2 VTI: 34.4 cm Reading Physician:01:[id number] PM
[2022-05-07 07:34] LABS: INR 2.5 (0.9-1.3); Prothrombin Time 28.5 SECONDS (10.1-12.7)
--- NOTE | 2022-05-07 07:34 | PM.DS.1 ---
History of Present Illness History of Present Illness Date Patient Seen: 05/07/22 Time Patient Seen: 07:35 Chief complaint: Thinks stroke Narrative: 76-year-old male with a history of severe aortic stenosis chronic atrial fibrillation coronary artery disease cardiomyopathy and hyperlipidemia.? Patient's states he woke up this morning with his usual state of health.? He says after that his said he started talking funny knee had problems with his vision.? Patient states he has really was not sure what was happening.? His times in a provides the rest of the detailed history for him.? She says the plan was to go to [place] later this morning for an evaluation by a physician.? As they were working on getting up in getting ready all of a sudden he became concerned about his vision.? He says his vision was different blurry he just could not focus.? A few moments later patient then had a difficult time speaking.? His said he was using words that were unclear are nonsensical.? Trying to communicate effectively in was unable to do so.? She became concerned enough that she thought the that they should counselor appointment.? He is she then noticed that he got a little bit better and then got worse again.? And that point became concerned enough that they brought him into the emergency department.? She says over the ensuing time during the morning while waiting in getting to the emergency room symptoms were waxing and waiting but generally getting a little bit better.? On arrival to the emergency department patient patient was having a little bit of confusion.? His speech was much more clear.? And over the time in the emergency department these resolved.? By the time I evaluated patient patient was speaking clearly.? He says he knows that there was an event this morning.? But asked about going home.? His said he had difficulty with word finding.? And on clear vision.? She says he peers to be acting normal but he was definitely different than what he was now.? Patient currently has no plan complaints of chest pain no dizziness.? No difficulty with balance coordination movement of extremities.? Patient states he is hungry and would like to go have a hamburger and Pepsi. {from Dr. Krishnan's H&P} Discharge Providers Provider Date of admission: 05/06/22 11:32 Discharge Date: 05/07/22 Primary care physician: Mehrdad Olivier MD Consults: 05/06/22 12:13 Consult to Discharge Planning Routine Comment: Consult to Occupational Therapy Evaluate & Treat Comment: Physician Instructions: Evaluate and treat Consult to Occupational Therapy Evaluate & Treat Comment: Physician Instructions: Evaluate and treat Consult to Physical Therapy Evaluate & Treat Comment: Physician Instructions: Evaluate and Treat Consult to Physical Therapy Evaluate & Treat Comment: Physician Instructions: Evaluate and Treat Discharge provider: Mehrdad Olivier MD Summary Hospital Course Discharge Diagnosis: 1. TIA 2. Severe aortic stenosis 3. Coronary artery disease, not active 4. Chronic atrial fibrillation 5. Chronic anticoagulation secondary to patient's chronic atrial fibrillation for stroke risk reduction 6. Type 2 diabetes on oral medication without use of insulin 7. Prostate cancer Hospital Course: Patient was admitted as above with resolution of symptoms during the evaluation at admission process in the emergency department. Basic evaluation was unremarkable with no specific etiology identified for patient's transient neurologic symptoms. Patient had normal CT angiography of the head had a normal MRI of the brain had normal carotid ultrasound showing ulnar minor atherosclerotic disease. Patient is chronically anticoagulated due to his atrial fibrillation and his anticoagulation status was within the therapeutic target. Patient had no additional neurologic symptoms Most likely etiology for patient's TI would still be thromboembolic secondary to his atrial fibrillation. Echocardiography was obtained to complete his workup. He had echocardiogram done 6 months ago in October of 2021 notable for the aortic stenosis mitral valve disease as well as the atrial fibrillation and longstanding mild cardiomyopathy with ejection fraction of 40-50%. The only real change from previous echocardiogram at that time was some slight progression of his aortic stenosis. It was not felt as any finding on his repeat echocardiogram was likely to change his plan of care. The only real option to reduce risk of further neurologic events would be a slight increase in his therapeutic target for his warfarin anticoagulation. Therefore he will be discharged on a slightly higher dose of warfarin with a new INR target of 2.5-3.5. We could also add anti thrombotic therapy in the form of aspirin 81 mg daily but I am hesitant to do that at this point. If there is any sort of another neurologic event than that would be the next step for sure. Status at Discharge Cognitive/behavioral status at discharge: oriented Functional status at discharge: independent ambulation Overall status at discharge: patient is back to baseline Exam Vital Signs (past 8 hours): - 05/07/22 04:00 Temperature 98.2 F Pulse Rate 80 Respiratory Rate 15 Blood Pressure 112/70 Pulse Oximetry 97 Oxygen Delivery Method Room Air Oxygen Flow Rate 0 Narrative Exam Narrative: Non ill-appearing elderly male in no obvious distress lying in his hospital bed HEENT-unremarkable Neck-no bruits Lungs-clear with good breath sounds Heart-irregularly regular systolic ejection murmur in the precordium Abdomen-benign positive bowel tones Neuro-alert orient x3 moves all 4 extremities gait not tested otherwise seems entirely normal no findings on brief focal exam Objective Labs Result Diagrams: 05/07/22 06:58 05/07/22 06:58 Labs: Laboratory Results - last 24 hr 05/06/22 05/06/22 05/06/22 09:51 09:51 09:51 WBC 7.5 RBC 4.42 L Hgb 14.9 Hct 42.8 MCV 96.8 MCH 33.7 MCHC 34.8 RDW 13.1 Plt Count 265 Neut % (Auto) 72.1 Lymph % (Auto) 15.8 L [place] % (Auto) 10.6 Eos % (Auto) 1.2 L Baso % (Auto) 0.3 Neut # (Auto) 5400 Lymph # (Auto) 1200 [place] # (Auto) 800 Eos # (Auto) 100 Baso # (Auto) 0 PT 25.9 H INR 2.2 H APTT 52 H Sodium 135 L Potassium 4.9 Chloride 98 Carbon Dioxide 21 L BUN 12 Creatinine 0.72 Estimated GFR > 60 BUN/Creatinine Ratio 16.7 Glucose 109 Calcium 9.6 Total Bilirubin 0.9 AST 37 ALT 22 Alkaline Phosphatase 64 Total Creatine Kinase 32 L CK-MB (CK-2) TNP CK-MB (CK-2) Rel Index TNP Troponin I 0.023 Total Protein 7.9 Albumin 4.4 Globulin 3.5 Albumin/Globulin Ratio 1.3 Lipase 85 SARS-CoV-2 (PCR) 05/06/22 05/07/22 12:33 06:58 WBC 4.7 RBC 3.91 L Hgb 13.3 L Hct 37.5 L MCV 95.9 MCH 34.0 MCHC 35.5 RDW 13.1 Plt Count 203 Neut % (Auto) 71.7 Lymph % (Auto) 14.8 L [place] % (Auto) 11.2 Eos % (Auto) 1.8 L Baso % (Auto) 0.5 Neut # (Auto) 3400 Lymph # (Auto) 700 L [place] # (Auto) 500 Eos # (Auto) 100 Baso # (Auto) 0 PT INR APTT Sodium Potassium Chloride Carbon Dioxide BUN Creatinine Estimated GFR BUN/Creatinine Ratio Glucose Calcium Total Bilirubin AST ALT Alkaline Phosphatase Total Creatine Kinase CK-MB (CK-2) CK-MB (CK-2) Rel Index Troponin I Total Protein Albumin Globulin Albumin/Globulin Ratio Lipase SARS-CoV-2 (PCR) Negative [facility] Medical History Anticoagulated on warfarin Aortic stenosis Chronic atrial fibrillation Controlled type 2 diabetes mellitus without complication Coronary artery disease involving [place] coronary artery without angina pectoris (04/03/16) Elevated prostate specific antigen (PSA) (06/18/16) Family history of prostate cancer in father Glaucoma Mixed hyperlipidemia (04/03/16) 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 Prostate cancer Tinnitus (~1984) Type 2 diabetes mellitus with hyperglycemia, without long-term current use of insulin (06/18/16) Surgical History Anesthesia History of heart bypass surgery (~2013) History of tonsillectomy S/P prostatectomy (~02/20/21) Status post appendectomy Family History Father Prostate cancer Mother Skin cancer Heart disease Brother No problems noted. Grandfather No problems noted. Social History marital status: number of children: 2 household members: spouse Smoking Status: Former smoker alcohol intake: current caffeine: No Discharge Plan Discharge Plan Patient Disposition: Home Discharge orders & Medications Prescriptions: Continued digoxin [Lanoxin] 125 mcg (0.125 mg) tablet 250 mcg PO QDAY Qty: 180 3RF metformin 1,000 mg tablet 1,000 mg PO BIDCC Qty: 180 0RF metoprolol succinate 50 mg tablet extended release 24 hr 100 mg PO BID cholecalciferol (vitamin D3) 25 mcg (1,000 unit) capsule 25 mcg PO DAILY Jardiance 10 mg tablet 10 mg PO DAILY Qty: 90 3RF atorvastatin [Lipitor] 40 mg tablet 20 mg PO HS Xtandi 80 mg tablet 160 mg PO DAILY Orgovyx 120 mg tablet 120 mg PO DAILY magnesium oxide 400 mg (241.3 mg magnesium) tablet 400 mg PO DAILY Changed warfarin [Augtoven] 5 mg tablet See Rx Instructions .ROUTE .COMPLEX Qty: 150 0RF Dose Instruction: TAKE 1 TABLET BY MOUTH ON WEDNESDAY AND WEDNESDAY AND TAKE 1 AND 1/2 TABLETS BY MOUTH ALL OTHER DAYS; OR DIRECTED BY PHYSICIAN ([facility] ONLY) Rx Instructions: 12.5mg Wednesday, Wednesday, Wednesday, and 10mg all other days, unless otherwise directed. Follow up/Referrals: Mehrdad Olivier MD [Primary Care Provider] - 2 Weeks Discharge Health Status Multidrug resistant organism: No MDRO Diet/Activity/Treatments Diet: Diet as Tolerated Discharge Data Primary Care Provider: Mehrdad Olivier Attending Provider: Mehrdad Olivier Quality VTE Deep Vein Thrombosis/Pulmonary Embolism Present on Admission: No
[2022-05-07 08:00] LABS: Alanine Aminotransferase 18 IU/L (<50); Albumin 3.5 g/dL (3.5-5.0); Albumin Globulin Ratio 1.3 (1.0-2.8); Alkaline Phosphatase 57 U/L (38-126); Aspartate Aminotransferase 29 IU/L (17-59); BUN Creatinine Ratio 15.4 (6-22); Bilirubin Total 0.8 mg/dL (0.2-1.3); Blood Urea Nitrogen 12 mg/dL (9-20); Carbon Dioxide 27 mmol/L (22-32); Chloride 100 mmol/L (98-107); Cholesterol 89 mg/dL (140-199); Estimated Glomerular Filt Rate > 60 mL/min (>60); Globulin 2.7 g/dL (1.7-4.1); Glucose 135 mg/dL (80-110); HDL Cholesterol 30 mg/dL (40-60); HEMOLYSIS < 15 (0-50); LDL Cholesterol Calculated 26 mg/dL (<100); Potassium 4.4 mmol/L (3.4-5.1); Sodium 137 mmol/L (137-145); Total Protein 6.2 g/dL (6.3-8.2); Triglycerides 166 mg/dL (35-150)
[2022-05-07 08:29] VITALS: BP 139/78; PULSE 70
[2022-05-07] MEDS: DIGOXIN 0.125 MG TABLET 0.25 MG PO (08:29)
[2022-05-07 08:30] VITALS: BP 139/78; PULSE 70
[2022-05-07] MEDS: RELUGOLIX 120 MG 120 EACH PO (08:30)
[2022-05-07] MEDS: METOPROLOL ER 50 MG TABLET 100 MG PO (08:30)
[2022-05-07] MEDS: INSULIN LISPRO 100 UNIT/ML 3ML VIAL SUBCUT (08:51)
[2022-05-07 11:00] VITALS: BP 120/70; PULSE 76; RESP 18; TEMP 36.8; O2SAT 99
--- NOTE | 2022-05-07 12:42 | PC.NURSE ---
Pt discharged home at 1240, escorted off floor in wheelchair, accompanied by and hospital staff. IV removed, tele d/c'd, discharge teaching reviewed including follow up appointments and medication changes. Pt left the floor with all belongings.
--- NOTE | 2022-05-07 15:42 | CM.DANOTE ---
Initial DCP Assessment Note Pt is a 76 yo male, resident of [place], arrives w/stroke like symptoms and admitted observation for imaging and stroke r/o. Patient had resolution of presenting symptoms and was discharged this morning, home w/family and recommendation for close outpatient f/u PCP: Mehrdad Olivier Payer: LIBAN/Klaudia Reviewed chart, pt discussed in multidisciplinary rounds this morning. Patient eager to return home; confident in the care available from spouse. patient indp and active at baseline No barriers identified at this time to patient's safe discharge home w/family to assist; close outpatient f/u recommended. AUGUSTO Ferrara Discharge Planning/Care Management CM Discharge Assessment Start: 05/07/22 15:35 Freq: Status: Active Protocol: Document 05/07/22 15:35 LIYA (Rec: 05/07/22 15:41 LIYA [id number]) Discharge Planning Assessment Assigned Pantograph Watcher AUGUSTO Mc DPOA/Assigned Designee Name Neelam Luna, spouse Contact Information [phone] Advance Directives? Yes Advance Directives on File No History Provided By Patient,Medical Record Prior Living Arrangements House Household Members spouse Type of transporation used prior to Drives own vehicle admit Independent with ADL's Yes Is patient alert and oriented? Yes Barriers to Discharge No Comment Home w/family and close outpatient f/u Discharge Plan Home Transportation Arrangement Family Referrals Initiated None needed
== END 2022-05-07 12:45 | disposition home or self-care (01) ==
LOC: ED 11:21 → AC 11:33
PROVIDERS: Admitting Provider Family Medicine; Emergency Provider Emergency Medicine; PCP Internal Medicine; Referring Provider Emergency Medicine; Visit Provider Internal Medicine
DX: G45.9 Transient cerebral ischemic attack, unspecified (principal); H53.8 Other visual disturbances; Z79.01 Long term (current) use of anticoagulants; R29.702 NIHSS score 2; E78.5 Hyperlipidemia, unspecified; I25.10 Atherosclerotic heart disease of native coronary artery without angina pectoris; I42.9 Cardiomyopathy, unspecified; E11.9 Type 2 diabetes mellitus without complications; Z79.84 Long term (current) use of oral hypoglycemic drugs; I35.0 Nonrheumatic aortic (valve) stenosis; I48.20 Chronic atrial fibrillation, unspecified; Z20.822 Contact with and (suspected) exposure to COVID-19
CPT/HCPCS: 36415; 70450; 70496; 70498; 70551; 71045; 80053; 80061; 82550; 82962; 83690; 84484; 85025; 85610; 85730; 87635; 93005; 93306; 93880; 96372; 97161; 99217; 99219; 99285; C9803; G0378; J1815; Q9967

== ENCOUNTER → 2022-07-27 10:02 | Outpatient (CLI) | payer MEDICARE, OTHER, SELFPAY ==
[2022-05-06 12:15] VITALS: BMI 25.1
[2022-07-27 17:09] LABS: BUN Creatinine Ratio 31.3 (6-22); Blood Urea Nitrogen 20 mg/dL (9-20); Carbon Dioxide 26 mmol/L (22-32); Chloride 97 mmol/L (98-107); Estimated Glomerular Filt Rate > 60 mL/min (>60); Glucose 146 mg/dL (80-110); HEMOLYSIS < 15 (0-50); Potassium 3.1 mmol/L (3.4-5.1); Sodium 135 mmol/L (137-145)
[2022-07-28 17:05] LABS: Hemoglobin A1C% w Est Avg Glu 5.7 % (4.0-6.0)
== END ==
PROVIDERS: PCP Internal Medicine; Referring Provider Physician Assistant; Visit Provider Physician Assistant
DX: E11.65 Type 2 diabetes mellitus with hyperglycemia (principal); D64.9 Anemia, unspecified; Z95.3 Presence of xenogenic heart valve
CPT/HCPCS: 36415; 80048; 83036

== ENCOUNTER → 2022-08-04 10:23 | Outpatient (CLI) | payer MEDICARE, OTHER, SELFPAY ==
[2022-05-06 12:15] VITALS: BMI 25.1
[2022-08-04 13:07] LABS: BUN Creatinine Ratio 27.6 (6-22); Blood Urea Nitrogen 21 mg/dL (9-20); Calcium 9.5 mg/dL (8.4-10.2); Carbon Dioxide 21 mmol/L (22-32); Chloride 98 mmol/L (98-107); Estimated Glomerular Filt Rate > 60 mL/min (>60); Glucose 100 mg/dL (80-110); HEMOLYSIS < 15 (0-50); Potassium 5.3 mmol/L (3.4-5.1); Sodium 134 mmol/L (137-145)
[2022-08-04 13:38] LABS: Prostate Specific Antigen 0.083 ng/mL (0.10-4.00)
== END ==
PROVIDERS: Urology; PCP Internal Medicine; Referring Provider Physician Assistant; Visit Provider Physician Assistant
DX: C61 Malignant neoplasm of prostate (principal); R97.20 Elevated prostate specific antigen [PSA]; E87.6 Hypokalemia
CPT/HCPCS: 36415; 80048; 84153

== ENCOUNTER 2022-08-11 14:51 | Emergency (ER) | payer MEDICARE, OTHER, SELFPAY ==
[2022-05-06 12:15] VITALS: BMI 25.1
[2022-08-11] VITALS (33 sets, daily range): BP systolic 100–164; BP diastolic 54–75; PULSE 71–86; RESP 11–68; TEMP 36.8; O2SAT 82–100; BMI 23.6
--- NOTE | 2022-08-11 14:54 | DI.RAD.S_ITS ---
PROCEDURE: XR CHEST 1V INDICATIONS: chest pain TECHNIQUE: One view of the chest was acquired. COMPARISON: [facility], CR, XR CHEST 1V, 05/06/2022, 10:01. FINDINGS: Surgical changes and devices: Midline sternal wires. Surgical clips noted at the nancy. Aortic valve replacement as well as surgical epigastric clips noted as well Lungs and pleura: Lungs are clear. No pleural effusions or pneumothorax. Mediastinum: Mediastinal contours appear normal. Heart size is normal. Bones and chest wall: No suspicious bony lesions. Overlying soft tissues appear unremarkable. IMPRESSION: No acute cardiopulmonary findings Approved by: Hunter Haley M.D. on 08/11/2022 at 15:03
[2022-08-11 15:02] LABS: Add Manual Diff / Slide Review NO; Basophils Absolute Auto 0 /uL (0-100); Basophils Percent Auto 0.4 % (0-2); Eosinophils Absolute Auto 0 /uL (0-450); Eosinophils Percent Auto 0.5 % (2-4); Hematocrit 37.8 % (41-53); Hemoglobin 12.5 g/dL (13.5-17.5); Lymphocytes Absolute Auto 900 /uL (1100-4500); Lymphocytes Percent Auto 17.8 % (25-40); Mean Corpuscular HGB Conc 33.1 % (30-36); Mean Corpuscular Hemoglobin 32.8 PG (26-34); Mean Corpuscular Volume 99.2 fL (80-100); Monocytes Absolute Auto 600 /uL (0-900); Monocytes Percent Auto 10.8 % (3-14); Neutrophils Absolute Auto 3700 /uL (1500-7000); Neutrophils Percent Auto 70.5 % (50-75); Platelet Count 218 X10^3/uL (150-400); Red Blood Cell Count 3.81 X10^6/uL (4.5-5.9); White Blood Cell Count 5.2 X10^3/uL (4.5-11.0)
[2022-08-11 15:09] LABS: INR 2.8 (0.9-1.3)
[2022-08-11 15:11] LABS: PTT Partial Thromboplastin Tim 46 SECONDS (26-36)
[2022-08-11 15:13] LABS: Alanine Aminotransferase 21 IU/L (<50); Albumin 4.1 g/dL (3.5-5.0); Albumin Globulin Ratio 1.2 (1.0-2.8); Alkaline Phosphatase 85 U/L (38-126); Aspartate Aminotransferase 63 IU/L (17-59); BUN Creatinine Ratio 29.4 (6-22); Bilirubin Total 1.8 mg/dL (0.2-1.3); Blood Urea Nitrogen 20 mg/dL (9-20); Calcium 9.4 mg/dL (8.4-10.2); Carbon Dioxide 30 mmol/L (22-32); Chloride 96 mmol/L (98-107); Creatine Kinase 29 U/L (55-170); Estimated Glomerular Filt Rate > 60 mL/min (>60); Globulin 3.4 g/dL (1.7-4.1); Glucose 212 mg/dL (80-110); HEMOLYSIS < 15 (0-50); Lipase 154 U/L (23-300); Magnesium 2.2 mg/dL (1.6-2.3); Potassium 4.4 mmol/L (3.4-5.1); Sodium 134 mmol/L (137-145); Total Protein 7.5 g/dL (6.3-8.2)
[2022-08-11 15:25] LABS: Troponin I 0.026 ng/mL (0.01-0.034)
[2022-08-11 16:52] LABS: Influenza A - CEPHEID Flu A NEGATIVE (NEGATIVE); Influenza B - CEPHEID Flu B NEGATIVE (NEGATIVE); Respiratory Syncytial Virus Negative (Negative)
[2022-08-11 16:53] LABS: COVID-19 CEPHEID 4-PLEX PCR Negative (Negative)
--- NOTE | 2022-08-11 18:49 | ED_ITS ---
HPI - General Adult General Chief complaint: Syncope Stated complaint: Near syncope with standing. Time Seen by Provider: 08/11/22 14:57 Source: patient, family and EMS Mode of arrival: EMS History of Present Illness HPI narrative: Patient is a 76-year-old male who is here for evaluation of almost passing out with standing up. This occurred this afternoon when he was at home. He stand up to take a picture of his when he became lightheaded and almost passed out. Upon further questioning he did recently have a TAVR procedure performed. He states that the symptoms he experienced today have actually been going on since before this procedure. He was seen by his primary doctor approximately 10 days ago for very similar symptoms. He had some medication changes. According to that provider's note he thought that maybe the patient was overmedicated. He does have history of prostate cancer. Is on medications for this and for his testosterone levels. He is also a sxu-oolbxrx-[id number] diabetic and had some of his diabetes medications changed recently. Has also had some of his blood pressure medications changed as well. His weight loss and fatigue and loss of appetite and lightheadedness of actually been going on since before his cardiac procedure. He currently denies chest pain. No lightheadedness. No palpitati ons. No abdominal pain. No nausea or vomiting. No lower extremity swelling. Denies any headaches. He states he feels very fatigued. He ambulates with a walker at home. Related Data Home Medications Medication Instructions Recorded Confirmed cholecalciferol (vitamin D3) 25 25 mcg PO DAILY 10/21/20 08/04/22 mcg (1,000 unit) capsule atorvastatin 40 mg tablet (Lipitor) 20 mg PO HS 10/14/21 08/04/22 enzalutamide 80 mg tablet (Xtandi) 160 mg PO DAILY 10/14/21 08/04/22 magnesium oxide 400 mg (241.3 mg 400 mg PO DAILY 10/14/21 08/04/22 magnesium) tablet relugolix 120 mg tablet (Orgovyx) 120 mg PO DAILY 10/14/21 08/04/22 metoprolol succinate 50 mg 50 mg PO BID 08/04/22 08/04/22 tablet,extended release 24 hr Previous Rx's Medication Instructions Recorded digoxin 125 mcg (0.125 mg) tablet 250 mcg PO QDAY #180 tabs 12/30/20 (Lanoxin) warfarin 5 mg tablet (Jantoven) See Rx Instructions .Route 05/07/22 .COMPLEX #150 tabs Allergies Allergy/AdvReac Type Severity Reaction Status Date / Time No Known Drug Allergies Allergy Verified 08/04/22 10:29 Review of Systems Review of Systems ROS Unobtainable: All systems reviewed & are unremarkable except as noted in HPI and below Patient History Medical History Anticoagulated on warfarin Aortic stenosis Chronic atrial fibrillation Controlled type 2 diabetes mellitus without complication Coronary artery disease involving [place] coronary artery without angina pectoris (04/03/16) Elevated prostate specific antigen (PSA) (06/18/16) Family history of prostate cancer in father Glaucoma Mixed hyperlipidemia (04/03/16) 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 Prostate cancer Tinnitus (~1984) Type 2 diabetes mellitus with hyperglycemia, without long-term current use of insulin (06/18/16) Surgical History (Updated 08/04/22 @ 11:01 by Mehrdad Olivier MD) Anesthesia History of heart bypass surgery (~2013) History of tonsillectomy S/P prostatectomy (~02/20/21) S/P TAVR (transcatheter aortic valve replacement) (~06/2022) Status post appendectomy Family History Father Prostate cancer Mother Skin cancer Heart disease Brother No problems noted. Grandfather No problems noted. Social History marital status: number of children: 2 household members: spouse Smoking Status: Former smoker alcohol intake: current caffeine: No Smoking Status: Former smoker alcohol intake frequency: 0-2 drinks per day Substance Use Type: does not use Exam Initial Vital Signs Initial Vital Signs: Vital Signs Pulse Rate 84 08/11/22 14:54 Blood Pressure 142/65 H 08/11/22 14:54 Const General: cooperative, comfortable and No ill appearing HENMT Head: normal to inspection and normocephalic Chest Chest: normal inspection of the chest Resp Effort & Inspection: normal respiratory effort Auscultation: clear to auscultation bilaterally Cardio Rate: regular rate Rhythm: regular rhythm GI Inspection: normal to inspection Skin General: no rashes or lesions noted Neuro General: patient alert, patient awake, patient oriented x3 and moves all extremities Extrem General: normal to inspection and capillary refill normal Psych Appearance: grossly normal and well kempt Course Orders Ordered: Discontinued Medications Aspirin (Aspirin 81 Mg Chew Tab) 324 mg PO NOW ONE Stop: 08/11/22 14:55 Last Admin: 08/11/22 18:19 Dose: Not Given Documented By: RB Vital Signs Vital signs: Vital Signs - 8 hr 08/11/22 20:00 08/11/22 20:00 08/11/22 20:15 Pulse Rate 76 Respiratory Rate Blood Pressure 149/67 H 124/59 L Pulse Oximetry 99 08/11/22 20:15 08/11/22 20:30 08/11/22 20:30 Pulse Rate 73 74 Respiratory Rate 68 H 64 H Blood Pressure 128/60 Pulse Oximetry 98 99 08/11/22 20:45 08/11/22 20:45 08/11/22 21:00 Pulse Rate 73 Respiratory Rate 53 H Blood Pressure 128/63 135/61 Pulse Oximetry 100 08/11/22 21:00 08/11/22 21:14 08/11/22 21:14 Pulse Rate 76 76 Respiratory Rate 57 H 48 H Blood Pressure 146/63 H Pulse Oximetry 100 100 08/11/22 21:15 08/11/22 21:15 08/11/22 21:30 Pulse Rate 77 Respiratory Rate 51 H Blood Pressure 163/72 H 143/63 H Pulse Oximetry 100 08/11/22 21:30 08/11/22 21:45 08/11/22 21:45 Pulse Rate 76 76 Respiratory Rate 59 H 39 H Blood Pressure 142/59 H Pulse Oximetry 100 99 08/11/22 22:20 Pulse Rate Respiratory Rate Blood Pressure Pulse Oximetry 82 L Medical Decision Making Lab Data Lab results reviewed: Yes I reviewed the patient's lab results. Result diagrams: 08/11/22 14:32 08/11/22 14:32 Labs: Lab Results 08/11/22 08/11/22 08/11/22 Range/Units 14:32 14:32 14:32 WBC 5.2 (4.5-11.0) X10^3/uL RBC 3.81 L (4.5-5.9) X10^6/uL Hgb 12.5 L (13.5-17.5) g/dL Hct 37.8 L (41-53) % MCV 99.2 (80-100) fL MCH 32.8 (26-34) PG MCHC 33.1 (30-36) % RDW 15.0 H (11.6-14.8) % Plt Count 218 (150-400) X10^3/uL Neut % (Auto) 70.5 (50-75) % Lymph % (Auto) 17.8 L (25-40) % [place] % (Auto) 10.8 (3-14) % Eos % (Auto) 0.5 L (2-4) % Baso % (Auto) 0.4 (0-2) % Neut # (Auto) 3700 (4956-6045) /uL Lymph # (Auto) 900 L (1158-0937) /uL [place] # (Auto) 600 (0-900) /uL Eos # (Auto) 0 (0-450) /uL Baso # (Auto) 0 (0-100) /uL PT 32.0 H (10.1-12.7) SECONDS INR 2.8 H (0.9-1.3) APTT 46 H (26-36) SECONDS Sodium 134 L (137-145) mmol/L Potassium 4.4 (3.4-5.1) mmol/L Chloride 96 L (98-107) mmol/L Carbon Dioxide 30 (22-32) mmol/L BUN 20 (9-20) mg/dL Creatinine 0.68 (0.66-1.25) mg/dL Estimated GFR > 60 (>60) mL/min BUN/Creatinine Ratio 29.4 H (6-22) Glucose 212 H D (80-110) mg/dL Calcium 9.4 (8.4-10.2) mg/dL Magnesium 2.2 (1.6-2.3) mg/dL Total Bilirubin 1.8 H (0.2-1.3) mg/dL AST 63 H (17-59) IU/L ALT 21 (<50) IU/L Alkaline Phosphatase 85 (38-126) U/L Total Creatine Kinase 29 L (55-170) U/L CK-MB (CK-2) TNP CK-MB (CK-2) Rel Index TNP Troponin I 0.026 (0.01-0.034) ng/mL Total Protein 7.5 (6.3-8.2) g/dL Albumin 4.1 (3.5-5.0) g/dL Globulin 3.4 (1.7-4.1) g/dL Albumin/Globulin Ratio 1.2 (1.0-2.8) Lipase 154 (23-300) U/L SARS-CoV-2 (PCR) (Negative) Influenza A (RT-PCR) (NEGATIVE) Influenza B (RT-PCR) (NEGATIVE) RSV (PCR) (Negative) 08/11/22 Range/Units 15:55 WBC (4.5-11.0) X10^3/uL RBC (4.5-5.9) X10^6/uL Hgb (13.5-17.5) g/dL Hct (41-53) % MCV (80-100) fL MCH (26-34) PG MCHC (30-36) % RDW (11.6-14.8) % Plt Count (150-400) X10^3/uL Neut % (Auto) (50-75) % Lymph % (Auto) (25-40) % [place] % (Auto) (3-14) % Eos % (Auto) (2-4) % Baso % (Auto) (0-2) % Neut # (Auto) (5496-3360) /uL Lymph # (Auto) (0518-8989) /uL [place] # (Auto) (0-900) /uL Eos # (Auto) (0-450) /uL Baso # (Auto) (0-100) /uL PT (10.1-12.7) SECONDS INR (0.9-1.3) APTT (26-36) SECONDS Sodium (137-145) mmol/L Potassium (3.4-5.1) mmol/L Chloride (98-107) mmol/L Carbon Dioxide (22-32) mmol/L BUN (9-20) mg/dL Creatinine (0.66-1.25) mg/dL Estimated GFR (>60) mL/min BUN/Creatinine Ratio (6-22) Glucose (80-110) mg/dL Calcium (8.4-10.2) mg/dL Magnesium (1.6-2.3) mg/dL Total Bilirubin (0.2-1.3) mg/dL AST (17-59) IU/L ALT (<50) IU/L Alkaline Phosphatase (38-126) U/L Total Creatine Kinase (55-170) U/L CK-MB (CK-2) CK-MB (CK-2) Rel Index Troponin I (0.01-0.034) ng/mL Total Protein (6.3-8.2) g/dL Albumin (3.5-5.0) g/dL Globulin (1.7-4.1) g/dL Albumin/Globulin Ratio (1.0-2.8) Lipase (23-300) U/L SARS-CoV-2 (PCR) Negative (Negative) Influenza A (RT-PCR) Flu a negative (NEGATIVE) Influenza B (RT-PCR) Flu b negative (NEGATIVE) RSV (PCR) Negative (Negative) Point of Care Testing Glucose POC 200 Point of care testing: Point of Care Testing Glucose POC 200 Imaging Data Chest x-ray: Radiologist's Impression: [address] [address] XRay Report Signed Patient: Mehrdad Luna MR#: [id number] : 1945 Acct:[id number] Age/Sex: 76 / M Date of Service: 08/11/22 Loc: ED Accession Number: [id number] ?? Procedure: XR chest 1V Ordering Provider: Lynn Perry D.O. PROCEDURE:? XR CHEST 1V ? INDICATIONS:? chest pain ? TECHNIQUE:? One view of the chest was acquired.? ? COMPARISON:? [facility], , XR CHEST 1V, 05/06/2022, 10:01. ? FINDINGS:? ? Surgical changes and devices:? Midline sternal wires.? Surgical clips noted at the nancy.? Aortic valve replacement as well as surgical epigastric clips noted as well ? Lungs and pleura:? Lungs are clear.? No pleural effusions or pneumothorax.? ? Mediastinum:? Mediastinal contours appear normal.? Heart size is normal.? ? Bones and chest wall:? No suspicious bony lesions.? Overlying soft tissues appear unremarkable.? ? IMPRESSION:? ? No acute cardiopulmonary findings ? ? ? Approved by: Hunter Haley M.D. on 08/11/2022 at 15:03? ECG Data Attestation: I personally reviewed and interpreted this ECG as follows: Interpretation: Atrial fibrillation Ventricular rate is 72 Normal axis Normal QRS Nonspecific ST T wave changes MDM Narrative Medical decision making narrative: It appears that the symptoms he presented with today have actually been going on for several weeks. His vital signs are unremarkable. Labs are unremarkable. No signs of infection. Patient was able to stand and walk with the walker here in the ER which is baseline for him although I do admit that he reports becoming short of breath with this. I did review the patient's last primary doctor's note. I do not the specific etiology of his symptoms today although given the presentation and his workup here in the ER and his history and the length of time that the symptoms been going on patient can be safely discharged home to contact his primary doctor for follow-up. He was given return precautions. He expressed understanding. Discharge Plan Departure Patient Disposition: Home Clinical Impression: Weakness Instructions: DI for Fatigue Activity Restrictions/Additional Instructions: I do recommend that you continue to take all of your medications as directed. Be sure that you are increasing your fluid intake. Tomorrow contact your primary doctor for a follow-up. Return to the emergency department for any new or worsening symptoms. Prescriptions: No Action digoxin [Lanoxin] 125 mcg (0.125 mg) tablet 250 mcg PO QDAY Qty: 180 3RF cholecalciferol (vitamin D3) 25 mcg (1,000 unit) capsule 25 mcg PO DAILY metoprolol succinate 50 mg tablet extended release 24 hr 50 mg PO BID atorvastatin [Lipitor] 40 mg tablet 20 mg PO HS Xtandi 80 mg tablet 160 mg PO DAILY Orgovyx 120 mg tablet 120 mg PO DAILY magnesium oxide 400 mg (241.3 mg magnesium) tablet 400 mg PO DAILY warfarin [Jantoven] 5 mg tablet See Rx Instructions .ROUTE .COMPLEX Qty: 150 0RF Dose Instruction: TAKE 1 TABLET BY MOUTH ON WEDNESDAY AND WEDNESDAY AND TAKE 1 AND 1/2 TABLETS BY MOUTH ALL OTHER DAYS; OR DIRECTED BY PHYSICIAN ([facility] ONLY) Rx Instructions: 12.5mg Wednesday, Wednesday, Wednesday, and 10mg all other days, unless otherwise directed. Referrals: Mehrdad Olivier MD [Primary Care Provider] - Visit Report Forms: Patient Portal/API
== END 2022-08-11 22:24 | disposition home or self-care (01) ==
PROVIDERS: Emergency Medicine; Emergency Provider Emergency Medicine; PCP Internal Medicine
DX: R55 Syncope and collapse (principal); R53.1 Weakness; I48.91 Unspecified atrial fibrillation
CPT/HCPCS: 0241U; 36415; 71045; 80053; 82550; 83690; 83735; 84484; 85025; 85610; 85730; 93005; 99283; 99284

== ENCOUNTER → 2022-10-05 07:30 | Outpatient (CLI) | payer MEDICARE, OTHER, SELFPAY ==
[2022-05-06 12:15] VITALS: BMI 25.1
[2022-10-05 08:23] LABS: Appearance Urine UA CLEAR; Bilirubin Urine UA NEGATIVE (NEGATIVE); Color Urine UA YELLOW; Glucose Urine UA NEGATIVE (Negative); Ketones Urine UA NEGATIVE (NEGATIVE); Leukocyte Esterase Urine UA NEGATIVE (NEGATIVE); Nitrite Urine UA NEGATIVE (Negative); Occult Blood Urine UA TRACE-INTACT (Negative); Protein Urine UA NEGATIVE (Negative); Specific Gravity Urine UA >=1.030 (1.000-1.035); Urobilinogen Urine UA 0.2 E.U./dL (0.2)
[2022-10-05 08:29] LABS: Add Manual Diff / Slide Review NO; Basophils Absolute Auto 0 /uL (0-100); Basophils Percent Auto 0.5 % (0-2); Eosinophils Absolute Auto 100 /uL (0-450); Eosinophils Percent Auto 1.6 % (2-4); Hematocrit 32.4 % (41-53); Lymphocytes Absolute Auto 400 /uL (1100-4500); Lymphocytes Percent Auto 8.2 % (25-40); Mean Corpuscular Hemoglobin 34.4 PG (26-34); Monocytes Absolute Auto 400 /uL (0-900); Monocytes Percent Auto 8.9 % (3-14); Neutrophils Absolute Auto 4100 /uL (1500-7000); Neutrophils Percent Auto 80.8 % (50-75); Platelet Count 202 X10^3/uL (150-400); Red Cell Distribution Width 14.2 % (11.6-14.8)
[2022-10-05 08:33] LABS: Bacteria Urine None Seen; Culture Indicated Urine Cult Not Indicated; RBC Urine 1-5/HPF (0-5/HPF); WBC Urine None Seen (0-5/HPF)
[2022-10-05 08:40] LABS: Hemoglobin A1C% w Est Avg Glu 5.1 % (4.0-6.0)
[2022-10-05 08:43] LABS: INR 3.5 (0.9-1.3); Prothrombin Time 40.5 SECONDS (10.1-12.7)
[2022-10-05 09:05] LABS: Alanine Aminotransferase 15 IU/L (<50); Albumin Globulin Ratio 1.3 (1.0-2.8); Alkaline Phosphatase 74 U/L (38-126); Aspartate Aminotransferase 46 IU/L (17-59); Blood Urea Nitrogen 13 mg/dL (9-20); Carbon Dioxide 28 mmol/L (22-32); Chloride 101 mmol/L (98-107); Estimated Glomerular Filt Rate > 60 mL/min (>60); Globulin 3.1 g/dL (1.7-4.1); Glucose 168 mg/dL (80-110); HEMOLYSIS < 15 (0-50); Potassium 4.6 mmol/L (3.4-5.1); Sodium 135 mmol/L (137-145); Total Protein 7.1 g/dL (6.3-8.2)
[2022-10-09 11:41] LABS: Cholesterol, Total 132 mg/dL (100-199); HDL-Cholesterol 42 mg/dL (>39); HDL-Particle (Total) 34.3 umol/L (>=30.5); LDL Particle 670 nmol/L (<1000); LDL Size 20.1 nm (>20.5); LDL-Cholsterol 55 mg/dL (0-99); LP-IR Score 86 (<=45); Small LDL- Particle 382 nmol/L (<=527); Triglycerides 220 mg/dL (0-149)
== END ==
PROVIDERS: PCP Internal Medicine; Referring Provider Physician Assistant Medical; Visit Provider Specialist
DX: E78.2 Mixed hyperlipidemia (principal); I48.20 Chronic atrial fibrillation, unspecified; E11.9 Type 2 diabetes mellitus without complications; C61 Malignant neoplasm of prostate; Z79.01 Long term (current) use of anticoagulants; R35.89 Other polyuria
CPT/HCPCS: 36415; 80053; 80061; 80162; 81001; 83036; 83704; 83735; 85025; 85610

== ENCOUNTER → 2022-10-30 15:54 | Outpatient (CLI) | payer MEDICARE, OTHER, SELFPAY ==
[2022-05-06 12:15] VITALS: BMI 25.1
[2022-10-30 16:13] LABS: Add Manual Diff / Slide Review NO; Basophils Absolute Auto 0 /uL (0-100); Basophils Percent Auto 0.8 % (0-2); Eosinophils Absolute Auto 100 /uL (0-450); Eosinophils Percent Auto 1.1 % (2-4); Hematocrit 32.9 % (41-53); Hemoglobin 11.4 g/dL (13.5-17.5); Lymphocytes Absolute Auto 800 /uL (1100-4500); Mean Corpuscular HGB Conc 34.5 % (30-36); Mean Corpuscular Volume 98.6 fL (80-100); Monocytes Absolute Auto 400 /uL (0-900); Monocytes Percent Auto 7.3 % (3-14); Neutrophils Absolute Auto 4600 /uL (1500-7000); Neutrophils Percent Auto 77.8 % (50-75); Platelet Count 245 X10^3/uL (150-400); Red Blood Cell Count 3.34 X10^6/uL (4.5-5.9)
[2022-10-30 16:27] LABS: Alanine Aminotransferase 20 IU/L (<50); Albumin 4.2 g/dL (3.5-5.0); Albumin Globulin Ratio 1.3 (1.0-2.8); Alkaline Phosphatase 74 U/L (38-126); Aspartate Aminotransferase 57 IU/L (17-59); BUN Creatinine Ratio 24.4 (6-22); Bilirubin Total 1.2 mg/dL (0.2-1.3); Blood Urea Nitrogen 21 mg/dL (9-20); Calcium 9.3 mg/dL (8.4-10.2); Carbon Dioxide 30 mmol/L (22-32); Chloride 97 mmol/L (98-107); Estimated Glomerular Filt Rate > 60 mL/min (>60); Globulin 3.3 g/dL (1.7-4.1); Glucose 333 mg/dL (80-110); HEMOLYSIS 30 (0-50); Potassium 5.1 mmol/L (3.4-5.1); Sodium 135 mmol/L (137-145); Total Protein 7.5 g/dL (6.3-8.2)
[2022-10-30 17:33] LABS: Folate 14.2 ng/mL (2.76-20.0); Vitamin B12 659 pg/mL (239-931)
== END ==
PROVIDERS: PCP Internal Medicine; Referring Provider Internal Medicine; Visit Provider Internal Medicine
DX: D64.9 Anemia, unspecified (principal); E11.9 Type 2 diabetes mellitus without complications; E78.2 Mixed hyperlipidemia
CPT/HCPCS: 36415; 80053; 82607; 82746; 85025

== ENCOUNTER → 2022-12-24 10:28 | Outpatient (CLI) | payer MEDICARE, OTHER, SELFPAY ==
[2022-05-06 12:15] VITALS: BMI 25.1
[2022-12-24 11:20] LABS: Add Manual Diff / Slide Review NO; Basophils Absolute Auto 0 /uL (0-100); Basophils Percent Auto 0.6 % (0-2); Eosinophils Absolute Auto 100 /uL (0-450); Eosinophils Percent Auto 1.2 % (2-4); Hematocrit 33.3 % (41-53); Hemoglobin 11.7 g/dL (13.5-17.5); Lymphocytes Absolute Auto 900 /uL (1100-4500); Lymphocytes Percent Auto 13.6 % (25-40); Mean Corpuscular Hemoglobin 33.7 PG (26-34); Mean Corpuscular Volume 96.1 fL (80-100); Monocytes Absolute Auto 600 /uL (0-900); Monocytes Percent Auto 9.2 % (3-14); Neutrophils Absolute Auto 4900 /uL (1500-7000); Neutrophils Percent Auto 75.4 % (50-75); Platelet Count 220 X10^3/uL (150-400); Red Blood Cell Count 3.46 X10^6/uL (4.5-5.9); Red Cell Distribution Width 14.4 % (11.6-14.8); White Blood Cell Count 6.5 X10^3/uL (4.5-11.0)
[2022-12-24 12:05] LABS: Alanine Aminotransferase 23 IU/L (<50); Albumin 3.8 g/dL (3.5-5.0); Albumin Globulin Ratio 1.3 (1.0-2.8); Alkaline Phosphatase 76 U/L (38-126); Aspartate Aminotransferase 51 IU/L (17-59); BUN Creatinine Ratio 20.2 (6-22); Bilirubin Total 1.2 mg/dL (0.2-1.3); Blood Urea Nitrogen 17 mg/dL (9-20); Carbon Dioxide 27 mmol/L (22-32); Chloride 99 mmol/L (98-107); Estimated Glomerular Filt Rate > 60 mL/min (>60); Globulin 2.9 g/dL (1.7-4.1); Glucose 252 mg/dL (80-110); HEMOLYSIS < 15 (0-50); Sodium 132 mmol/L (137-145); Total Protein 6.7 g/dL (6.3-8.2)
[2022-12-24 12:06] LABS: Potassium 5.5 mmol/L (3.4-5.1)
[2022-12-25 05:14] LABS: Labcorp Hemoglobin (Hb) A1c 7.8 % (4.8-5.6)
== END ==
PROVIDERS: PCP Internal Medicine; Referring Provider Internal Medicine; Visit Provider Internal Medicine
DX: E11.9 Type 2 diabetes mellitus without complications (principal); E78.2 Mixed hyperlipidemia
CPT/HCPCS: 36415; 80053; 83036; 85025

== ENCOUNTER → 2023-03-22 09:02 | Outpatient (CLI) | payer MEDICARE, OTHER, SELFPAY ==
[2023-01-01 15:55] VITALS: BMI 25.1
[2023-03-22 10:17] LABS: Add Manual Diff / Slide Review NO; Basophils Absolute Auto 0 /uL (0-100); Basophils Percent Auto 0.7 % (0-2); Eosinophils Absolute Auto 100 /uL (0-450); Eosinophils Percent Auto 1.3 % (2-4); Hematocrit 32.4 % (41-53); Hemoglobin 11.3 g/dL (13.5-17.5); Lymphocytes Absolute Auto 800 /uL (1100-4500); Lymphocytes Percent Auto 14.3 % (25-40); Mean Corpuscular Hemoglobin 33.5 PG (26-34); Mean Corpuscular Volume 95.6 fL (80-100); Monocytes Absolute Auto 500 /uL (0-900); Monocytes Percent Auto 8.4 % (3-14); Neutrophils Absolute Auto 4100 /uL (1500-7000); Neutrophils Percent Auto 75.3 % (50-75); Platelet Count 246 X10^3/uL (150-400); Red Blood Cell Count 3.38 X10^6/uL (4.5-5.9); Red Cell Distribution Width 14.3 % (11.6-14.8); White Blood Cell Count 5.4 X10^3/uL (4.5-11.0)
[2023-03-22 10:40] LABS: Alanine Aminotransferase 25 IU/L (<50); Albumin 3.8 g/dL (3.5-5.0); Albumin Globulin Ratio 1.4 (1.0-2.8); Alkaline Phosphatase 106 U/L (38-126); Aspartate Aminotransferase 64 IU/L (17-59); BUN Creatinine Ratio 16.1 (6-22); Bilirubin Total 1.1 mg/dL (0.2-1.3); Blood Urea Nitrogen 15 mg/dL (9-20); Calcium 9.1 mg/dL (8.4-10.2); Carbon Dioxide 26 mmol/L (22-32); Chloride 100 mmol/L (98-107); Cholesterol 109 mg/dL (140-199); Estimated Glomerular Filt Rate > 60 mL/min (>60); Globulin 2.7 g/dL (1.7-4.1); Glucose 252 mg/dL (80-110); HDL Cholesterol 36 mg/dL (40-60); HEMOLYSIS < 15 (0-50); LDL Cholesterol Calculated 17 mg/dL (<100); Magnesium 2.2 mg/dL (1.6-2.3); Potassium 4.8 mmol/L (3.4-5.1); Sodium 133 mmol/L (137-145); Total Protein 6.5 g/dL (6.3-8.2); Triglycerides 278 mg/dL (35-150)
[2023-03-23 02:57] LABS: x Labcorp Estim. Avg Glu (eAG) 180 mg/dL (.); x Labcorp Hemoglobin A1c 7.9 % (4.8-5.6)
== END ==
PROVIDERS: PCP Internal Medicine; Referring Provider Specialist; Visit Provider Internal Medicine
DX: I25.10 Atherosclerotic heart disease of native coronary artery without angina pectoris; I48.20 Chronic atrial fibrillation, unspecified; E78.2 Mixed hyperlipidemia; E11.9 Type 2 diabetes mellitus without complications
CPT/HCPCS: 36415; 80053; 80061; 80162; 83036; 83735; 85025

== ENCOUNTER → 2023-06-28 08:56 | Outpatient (CLI) | payer MEDICARE, OTHER, SELFPAY ==
[2023-01-01 15:55] VITALS: BMI 25.1
[2023-06-28 09:50] LABS: Hemoglobin A1C% w Est Avg Glu 7.2 % (4.0-6.0)
[2023-06-28 10:02] LABS: Alanine Aminotransferase 28 IU/L (<50); Albumin Globulin Ratio 1.4 (1.0-2.8); Alkaline Phosphatase 90 U/L (38-126); Aspartate Aminotransferase 91 IU/L (17-59); BUN Creatinine Ratio 16.7 (6-22); Bilirubin Total 1.4 mg/dL (0.2-1.3); Bilirubin Unconjugated 1.2 mg/dL (0.0-1.1); Blood Urea Nitrogen 15 mg/dL (9-20); Calcium 9.5 mg/dL (8.4-10.2); Carbon Dioxide 25 mmol/L (22-32); Chloride 99 mmol/L (98-107); Creatine Kinase 42 U/L (55-170); Estimated Glomerular Filt Rate > 60 mL/min (>60); Globulin 2.9 g/dL (1.7-4.1); Glucose 202 mg/dL (80-110); HEMOLYSIS < 15 (0-50); Potassium 4.5 mmol/L (3.4-5.1); Sodium 132 mmol/L (137-145); Total Protein 6.9 g/dL (6.3-8.2)
[2023-06-28 10:05] LABS: HEMOLYSIS < 15 (0-50); Iron 105 ug/dL (49-181)
[2023-06-28 10:16] LABS: Percent Iron Saturation 35 % (20-50); Total Iron Binding Capacity 303 ug/dL (261-462); Transferrin 229 mg/dL (206-381)
[2023-06-28 12:08] LABS: Creatinine Urine Random 180.9 mg/dL
[2023-06-28 12:25] LABS: Microalbumi Creatinin Ratio Ur 153.6 ug/mg CR (<30); Microalbumin Urine Random 27.8 mg/dL (0-1.6)
[2023-06-28 19:55] LABS: Hep C Virus Ab w/Reflex Quant NEGATIVE s/c (NEGATIVE); Hepatitis B Surface Antigen NEGATIVE s/c (NEGATIVE)
[2023-06-29 06:00] LABS: Ceruloplasmin 27.2 mg/dL (16.0-31.0)
[2023-06-30 03:36] LABS: Hepatitis B Surf Ab Qualitativ Non Reactive (.)
[2023-06-30 10:45] LABS: Smooth Muscle Antibody 5 Units (0-19)
[2023-06-30 18:33] LABS: ANA Screen, IFA Negative (.)
[2023-07-07 13:37] LABS: Deamidated Gliadin IgA 8 units (0-19); Deamidated Gliadin IgG 5 units (0-19); IGA 328 mg/dL (61-437); t-Transglutaminase IgA 4 U/mL (0-3)
== END ==
PROVIDERS: PCP Internal Medicine; Referring Provider Internal Medicine; Visit Provider Internal Medicine
DX: E11.9 Type 2 diabetes mellitus without complications (principal); R74.01 Elevation of levels of liver transaminase levels; E78.2 Mixed hyperlipidemia; I25.10 Atherosclerotic heart disease of native coronary artery without angina pectoris; I48.20 Chronic atrial fibrillation, unspecified
CPT/HCPCS: 36415; 80048; 80076; 82043; 82390; 82550; 82570; 82784; 83036; 83516; 83540; 83550; 86038; 86255; 86706; 86803; 87340

== ENCOUNTER → 2023-10-04 08:36 | Outpatient (CLI) | payer MEDICARE, SELFPAY ==
[2023-01-01 15:55] VITALS: BMI 25.1
[2023-10-04 10:24] LABS: Digoxin 0.6 ng/mL (0.8-2.0)
[2023-10-04 10:42] LABS: Alanine Aminotransferase 33 IU/L (<50); Albumin 3.8 g/dL (3.5-5.0); Albumin Globulin Ratio 1.2 (1.0-2.8); Alkaline Phosphatase 98 U/L (38-126); Aspartate Aminotransferase 94 IU/L (17-59); BUN Creatinine Ratio 11.6 (6-22); Bilirubin Total 1.1 mg/dL (0.2-1.3); Blood Urea Nitrogen 11 mg/dL (9-20); Calcium 9.1 mg/dL (8.4-10.2); Carbon Dioxide 21 mmol/L (22-32); Chloride 99 mmol/L (98-107); Estimated Glomerular Filt Rate > 60 mL/min (>60); Globulin 3.1 g/dL (1.7-4.1); Glucose 280 mg/dL (80-110); HEMOLYSIS < 15 (0-50); Potassium 4.5 mmol/L (3.4-5.1); Sodium 132 mmol/L (137-145); Total Protein 6.9 g/dL (6.3-8.2)
[2023-10-06 08:23] LABS: Cholesterol, Total 181 mg/dL (100-199); HDL-Cholesterol 40 mg/dL (>39); HDL-Particle (Total) 33.1 umol/L (>=30.5); LDL Particle 1381 nmol/L (<1000); LDL Size 19.8 nm (>20.5); LDL-Cholsterol 100 mg/dL (0-99); LP-IR Score 74 (<=45); Small LDL- Particle 1004 nmol/L (<=527); Triglycerides 240 mg/dL (0-149)
== END ==
PROVIDERS: PCP Internal Medicine; Referring Provider Specialist; Visit Provider Specialist
DX: I48.20 Chronic atrial fibrillation, unspecified (principal); E78.2 Mixed hyperlipidemia
CPT/HCPCS: 36415; 80053; 80061; 80162; 83704; 83735

== ENCOUNTER → 2023-10-21 07:13 | Outpatient (CLI) | payer MEDICARE, SELFPAY ==
[2023-01-01 15:55] VITALS: BMI 25.1
--- NOTE | 2023-10-21 07:18 | DI.US.S_ITS ---
PROCEDURE: US ARTERIAL DUPLEX LE RT INDICATIONS: RIGHT FOOT NON-HEALING WOUND TECHNIQUE: Color and pulse Doppler interrogation was performed of the right lower extremity arterial system, with image documentation. COMPARISON: None. FINDINGS: Common femoral artery: 205 cm/sec, with triphasic flow. Deep femoral artery: 294 cm/sec, with biphasic flow. Proximal superficial femoral artery: 242 cm/sec, with biphasic flow. Mid superficial femoral artery: 205 cm/sec, with biphasic flow. Distal superficial femoral artery: 63 cm/sec, with biphasic flow. Popliteal artery: 61 cm/sec, with biphasic flow. Posterior tibial artery: No flow Anterior tibial artery/dorsalis pedis: 90 cm/sec, with biphasic flow. Weinstein-scale imaging description: Calcified plaque especially at the mid/distal SFA, Jan's canal IMPRESSION: 1. 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 Completely occluded posterior tibial artery. Dictated by: Xavier Leary M.D. on 10/22/2023 at 9:52 Approved by: Xavier Leary M.D. on 10/22/2023 at 10:00
== END ==
PROVIDERS: PCP Internal Medicine; Referring Provider Podiatrist; Visit Provider Podiatrist
DX: L97.514 Non-pressure chronic ulcer of other part of right foot with necrosis of bone (principal); I70.92 Chronic total occlusion of artery of the extremities
CPT/HCPCS: 93926

== ENCOUNTER → 2023-11-06 09:01 | Outpatient (CLI) | payer MEDICARE, SELFPAY ==
[2023-01-01 15:55] VITALS: BMI 25.1
[2023-11-06 09:45] LABS: Add Manual Diff / Slide Review NO; Basophils Absolute Auto 0 /uL (0-100); Basophils Percent Auto 0.6 % (0-2); Eosinophils Absolute Auto 100 /uL (0-450); Eosinophils Percent Auto 1.8 % (2-4); Hematocrit 30.4 % (41-53); Hemoglobin 10.2 g/dL (13.5-17.5); Lymphocytes Absolute Auto 700 /uL (1100-4500); Lymphocytes Percent Auto 12.3 % (25-40); Mean Corpuscular HGB Conc 33.5 % (30-36); Mean Corpuscular Hemoglobin 33.5 PG (26-34); Mean Corpuscular Volume 99.9 fL (80-100); Monocytes Absolute Auto 400 /uL (0-900); Monocytes Percent Auto 7.8 % (3-14); Neutrophils Absolute Auto 4400 /uL (1500-7000); Neutrophils Percent Auto 77.5 % (50-75); Platelet Count 219 X10^3/uL (150-400); Red Blood Cell Count 3.04 X10^6/uL (4.5-5.9); Red Cell Distribution Width 14.6 % (11.6-14.8); White Blood Cell Count 5.6 X10^3/uL (4.5-11.0)
[2023-11-06 09:57] LABS: INR 1.1 (0.9-1.3); Prothrombin Time 12.3 SECONDS (9.4-12.5)
[2023-11-06 11:05] LABS: BUN Creatinine Ratio 13.5 (6-22); Blood Urea Nitrogen 14 mg/dL (9-20); Carbon Dioxide 24 mmol/L (22-32); Chloride 107 mmol/L (98-107); Estimated Glomerular Filt Rate > 60 mL/min (>60); Glucose 217 mg/dL (80-110); HEMOLYSIS < 15 (0-50); Potassium 5.1 mmol/L (3.4-5.1); Sodium 135 mmol/L (137-145)
[2023-11-06 12:57] LABS: Hemoglobin A1C% w Est Avg Glu 6.8 % (4.0-6.0)
== END ==
LOC: LAB 09:04
PROVIDERS: PCP Internal Medicine; Referring Provider Internal Medicine Cardiovascular Disease; Visit Provider Internal Medicine Cardiovascular Disease
DX: E11.9 Type 2 diabetes mellitus without complications (principal); I73.9 Peripheral vascular disease, unspecified
CPT/HCPCS: 36415; 80048; 83036; 85025; 85610

== ENCOUNTER → 2023-12-06 11:10 | Outpatient (CLI) | payer MEDICARE, SELFPAY ==
[2023-01-01 15:55] VITALS: BMI 25.1
[2023-12-06 12:35] LABS: Add Manual Diff / Slide Review NO; Basophils Absolute Auto 0 /uL (0-100); Basophils Percent Auto 0.7 % (0-2); Eosinophils Absolute Auto 100 /uL (0-450); Eosinophils Percent Auto 2.3 % (2-4); Hematocrit 34.3 % (41-53); Hemoglobin 11.8 g/dL (13.5-17.5); Lymphocytes Absolute Auto 900 /uL (1100-4500); Lymphocytes Percent Auto 16.8 % (25-40); Mean Corpuscular HGB Conc 34.4 % (30-36); Mean Corpuscular Hemoglobin 33.3 PG (26-34); Mean Corpuscular Volume 96.8 fL (80-100); Monocytes Absolute Auto 500 /uL (0-900); Monocytes Percent Auto 8.3 % (3-14); Neutrophils Absolute Auto 4000 /uL (1500-7000); Neutrophils Percent Auto 71.9 % (50-75); Platelet Count 247 X10^3/uL (150-400); Red Blood Cell Count 3.55 X10^6/uL (4.5-5.9); Red Cell Distribution Width 14.9 % (11.6-14.8); White Blood Cell Count 5.6 X10^3/uL (4.5-11.0)
[2023-12-06 13:32] LABS: BUN Creatinine Ratio 19.8 (6-22); Blood Urea Nitrogen 21 mg/dL (9-20); Calcium 9.5 mg/dL (8.4-10.2); Carbon Dioxide 26 mmol/L (22-32); Chloride 104 mmol/L (98-107); Estimated Glomerular Filt Rate > 60 mL/min (>60); Glucose 150 mg/dL (80-110); HEMOLYSIS < 15 (0-50); Potassium 4.7 mmol/L (3.4-5.1); Sodium 136 mmol/L (137-145)
== END ==
LOC: LAB 11:18
PROVIDERS: PCP Internal Medicine; Referring Provider Internal Medicine Cardiovascular Disease; Visit Provider Internal Medicine Cardiovascular Disease
DX: I73.9 Peripheral vascular disease, unspecified (principal)
CPT/HCPCS: 36415; 80048; 85025

== ENCOUNTER → 2024-01-07 13:59 | Outpatient (CLI) | payer MEDICARE, SELFPAY ==
[2023-01-01 15:55] VITALS: BMI 25.1
== END ==
PROVIDERS: PCP Internal Medicine; Referring Provider Internal Medicine; Visit Provider Internal Medicine
DX: R31.9 Hematuria, unspecified (principal); R30.0 Dysuria
CPT/HCPCS: 87086

== ENCOUNTER → 2024-04-05 07:40 | Outpatient (CLI) | payer MEDICARE, SELFPAY ==
[2023-01-01 15:55] VITALS: BMI 25.1
--- NOTE | 2024-04-05 | DI.ECHO.S_ITS ---
[place] [facility]---------+ [facility] : : [address] : : [place] : : [id number] : : Phone: [phone] Echocardiogram Report + + :Name: HI LOERA Study Date: 04/05/2024 Height: 71 in : :[facility] ReadingLocation: Weight: 170 lb : : Gender: Male BSA: 2.0 m2 : :: 1945 Age: 78 yrs BP: 146/75 mmHg: :Reason For Study: CHEST PAIN : :Ordering Physician: TEJA, : :LA Performed By: Oleksandr Shin : :Referring: LA LEZAMA : + + Interpretation Summary Left ventricular systolic function remains mild to moderately reduced with an estimated ejection fraction of 45 to 55% with [id number] variability and mild global hypokinesis that is worse in the mid to distal inferolateral wall that is unchanged. Left ventricular size is normal but slightly larger compared to previous and there is mild LVH that is less prominent . Diastolic function remains challenging to assess but filling pressures are likely mildly elevated, but possibly slightly improved compared to the previous exam. The right ventricle is normal in size with borderline reduced systolic function and appears slightly smaller and more dynamic compared to the previous exam. Right ventricular systolic pressure is estimated at 28 mmHg with a CVP of 3 mmHg, similar to the previous study. There is moderate biatrial enlargement with both grossly measuring similar to the previous exam. There is a new bioprosthetic aortic valve that appears stable with probable moderate intravalvular regurgitation that is directed posteriorly. Peak transvalvular velocity is 2.9 m/s with a mean gradient of 15 mmHg. There is trivial mitral and mild tricuspid regurgitation and both appear improved. There is moderate aortic root and ascending aortic enlargement but measuring similar, perhaps slightly improved, from the previous study. The patient was in atrial fibrillation at 80 to 110 bpm which is faster than the previous study. Procedure: A two-dimensional transthoracic echocardiogram with color flow and Doppler was performed. The study quality was technically adequate. Comparison is made with the echocardiogram of 05/07/2022. The patient was in atrial fibrillation with heart rates between 77-110 bpm during the exam. This is faster compared to the previous study. Left Ventricle: The left ventricle is normal in size. The estimated left ventricular end diastolic volume is measured at 130 mL compared to the previous 85 ml. However, visually this appears unchanged. There is mild concentric left ventricular hypertrophy. This is less prominent compared to the previous study. Left ventricular systolic function is mild to moderately reduced. Left ventricular ejection fraction is estimated to be 45 to 55% with considerable [id number] variation. There is mild global hypokinesis of the left ventricle. There is more severe hypokinesis in the mid to distal inferolateral wall that remains unchanged and overall contractility appears similar. Diastolic function could not be accurately assessed due to atrial fibrillation. Filling pressures are likely elevated but possibly slightly improved compared to the previous study. Right Ventricle: The right ventricle is normal size. Right ventricular systolic function is at the lower limits of normal. This is slightly smaller and more dynamic compared to the previous study. Atria: There is moderate biatrial enlargement. This is grossly similar compared to the previous study. The interatrial septum grossly appears intact with no obvious evidence for an atrial septal defect. Mitral Valve: There is mild mitral annular calcification. There is moderate calcification extending into the subvalvular apparatus. The mitral valve leaflets appear mildly thickened, but open well. There is no mitral valve stenosis. There is trace mitral regurgitation. This is slightly less prominent compared to the previous study. Aortic Valve: There is a bioprosthetic aortic valve. The prosthetic aortic valve is well-seated. The prosthetic aortic valve appears to open well. There is moderate intravalvular regurgitation through the prosthetic aortic valve. This is new compared to the previous study. The peak aortic velocity is 2.9 m/sec. The aortic valve mean gradient is 15 mmHg. Tricuspid Valve: The tricuspid valve is normal. There is no tricuspid stenosis. There is mild tricuspid regurgitation. This is less prominent compared to the previous study. The right ventricular systolic pressure is estimated to be at least 28 mmHg based on an estimated right atrial pressure of 3 mm Hg. Pulmonic Valve: The pulmonic valve is not well visualized. There is no pulmonic valvular stenosis. There is a trace or physiologic amount of pulmonic regurgitation. Great Vessels: The aortic root is moderately dilated. The ascending aorta is moderately enlarged. This is similar compared to the previous study. The IVC is of normal diameter and collapses greater than 50% with a sniff. This suggests a low right atrial pressure of 3 mm Hg. Pericardium/ Pleura There is no pericardial effusion. There is no pleural effusion. MMode/2D Measurements & Calculations LVIDd: 5.2 cm LVOT diam: 1.9 cm LVIDs: 4.1 cm Ao root diam: 4.0 cm FS: 20.7 % asc Aorta Diam: 4.6 cm IVSd: 1.5 cm LVPWd: 1.2 cm LV younger. diameter/BSA (cm/m^2): 2.7 LV sys. diameter/BSA (cm/m^2): 2.1 LA A2 area: 26.8 cm2 RA long axis: 7.8 cm LA A4 area: 25.1 cm2 RA area: 27.2 cm2 LA length (vol): 6.1 cm RA vol: 80.8 ml LA vol: 94.3 ml RA : 41.1 ml/m2 LA vol index: 47.9 ml/m2 IVC diam: 1.8 cm RVD1 (basal): 3.5 cm RVD2 (mid): 2.5 cm TAPSE: 1.1 cm Doppler Measurements & Calculations Ao V2 max: 293.5 cm/sec LVOT Max Oscar: 117.0 cm/sec Ao V2 mean: 180.3 cm/sec LV V1 max P.5 mmHg Ao max P.5 mmHg LV V1 VTI: 17.9 cm Ao mean P.3 mmHg ERICKA(I,D): 1.3 cm2 Ao V2 VTI: 41.2 cm ERICKA(V,D): 1.2 cm2 sev ratio: 0.44 ERICKA indexed to BSA (cm^2/m^2): 0.65 AI P1/2t: 378.6 msec AI dec slope: 401.0 cm/sec2 MV E max oscar: 120.9 cm/sec TR max oscar: 249.1 cm/sec MV A max oscar: 17.6 cm/sec TR max P.8 mmHg MV E/A: 6.9 PA V2 max: 104.8 cm/sec Med Peak E' Oscar: 4.2 cm/sec PA V2 mean: 68.9 cm/sec E/E' med: 28.5 PA mean P.3 mmHg Lat Peak E' Oscar: 7.0 cm/sec PA pr(Accel): 55.6 mmHg E/E' lat: 17.3 E/e' average: 22.9 MV dec time: 0.25 sec MVA(VTI): 1.9 cm2 MV V2 mean: 81.8 cm/sec SV(LVOT): 52.7 ml MV mean P.0 mmHg MV V2 VTI: 28.0 cm Reading Physician:10:48 AM
== END ==
LOC: ECHO 07:40
PROVIDERS: PCP Internal Medicine; Referring Provider Specialist; Visit Provider Specialist
DX: T82.897A Other specified complication of cardiac prosthetic devices, implants and grafts, initial encounter (principal); I08.3 Combined rheumatic disorders of mitral, aortic and tricuspid valves; I77.810 Thoracic aortic ectasia; I77.89 Other specified disorders of arteries and arterioles
CPT/HCPCS: 93306

== ENCOUNTER → 2024-04-12 08:13 | Outpatient (CLI) | payer MEDICARE, SELFPAY ==
[2023-01-01 15:55] VITALS: BMI 25.1
[2024-04-12 10:20] LABS: Alanine Aminotransferase 15 IU/L (<50); Albumin 3.3 g/dL (3.5-5.0); Albumin Globulin Ratio 0.9 (1.0-2.8); Alkaline Phosphatase 115 U/L (38-126); Aspartate Aminotransferase 38 IU/L (17-59); BUN Creatinine Ratio 15.9 (6-22); Bilirubin Total 1.1 mg/dL (0.2-1.3); Blood Urea Nitrogen 26 mg/dL (9-20); Calcium 9.1 mg/dL (8.4-10.2); Carbon Dioxide 22 mmol/L (22-32); Chloride 97 mmol/L (98-107); Cholesterol 137 mg/dL (140-199); Digoxin 0.7 ng/mL (0.8-2.0); Estimated Glomerular Filt Rate 42 mL/min (>60); Globulin 3.6 g/dL (1.7-4.1); Glucose 249 mg/dL (80-110); HDL Cholesterol 41 mg/dL (40-60); HEMOLYSIS < 15 (0-50); LDL Cholesterol Calculated 74 mg/dL (<100); Magnesium 2.2 mg/dL (1.6-2.3); Potassium 5.1 mmol/L (3.4-5.1); Sodium 129 mmol/L (137-145); Total Protein 6.9 g/dL (6.3-8.2); Triglycerides 112 mg/dL (35-150)
[2024-04-12 10:49] LABS: Thyroid Stimulating Hormone 2.34 uIU/mL (0.47-4.68)
== END ==
PROVIDERS: PCP Internal Medicine; Referring Provider Specialist; Visit Provider Specialist
DX: I48.20 Chronic atrial fibrillation, unspecified (principal); Z79.899 Other long term (current) drug therapy; Z51.81 Encounter for therapeutic drug level monitoring; E78.2 Mixed hyperlipidemia
CPT/HCPCS: 36415; 80053; 80061; 80162; 83735; 84443

== ENCOUNTER 2024-06-08 09:05 | Inpatient (IN) | payer MEDICARE, SELFPAY ==
[2023-01-01 15:55] VITALS: BMI 25.1
[2024-06-08] VITALS (24 sets, daily range): BP systolic 108–153; BP diastolic 51–72; PULSE 66–96; RESP 14–30; TEMP 36.1–36.8; O2SAT 91–100; BMI 21.9
--- NOTE | 2024-06-08 09:11 | ED_ITS ---
HPI - General Adult General Chief complaint: Weakness Stated complaint: Weakness Time Seen by Provider: 06/08/24 09:05 Source: patient Mode of arrival: EMS History of Present Illness HPI narrative: 78-year-old gentleman presents for a week of increasing weakness unable to get out of bed. Additional medical problems include chronic renal failure, type 2 diabetes, anticoagulated on warfarin and taking digoxin for coronary artery disease and chronic atrial fibrillation. On review of systems he says he has been feeling well with his only complaint being increasing weakness. He has been stooling, voiding, no cough, no chest pain no dyspnea, no fevers no headaches no nausea no vomiting Related Data Home Medications Medication Instructions Recorded Confirmed magnesium oxide 400 mg (241.3 mg 400 mg PO DAILY 10/14/21 05/30/24 magnesium) tablet vitamin B complex (Vitamins B 1 cap PO DAILY 08/31/22 05/30/24 Complex capsule) aspirin 81 mg tablet,delayed 81 mg PO DAILY 04/02/23 05/30/24 release (Adult Low Dose Aspirin) melatonin 3 mg capsule 3 mg PO BEDTIME PRN 05/30/24 05/30/24 metoprolol succinate 50 mg See Rx Instructions PO .COMPLEX 05/30/24 05/30/24 tablet,extended release 24 hr Previous Rx's Medication Instructions Recorded Disabled Parking #1 ea 01/25/23 digoxin 125 mcg (0.125 mg) tablet 125 mcg PO DAILY #90 tabs 02/07/24 glipizide 5 mg tablet, extended 5 mg PO BID #180 tabs 04/17/24 release 24 hr diazepam 5 mg tablet 5 mg PO ONCE #3 tabs 06/02/24 tolterodine 4 mg capsule,extended 4 mg PO DAILY #90 caps 06/02/24 release 24 hr Allergies Allergy/AdvReac Type Severity Reaction Status Date / Time metformin AdvReac Intermediate Diarrhea Verified 06/08/24 09:07 Review of Systems Constitutional Comments: Pertinent positive and negative findings as per HPI Patient History Medical History (Updated 06/08/24 @ 14:08 by Iraida Breen MD) Chronic renal failure, stage 3a Controlled type 2 diabetes mellitus without complication Prostate cancer Anticoagulated on warfarin Family history of prostate cancer in father 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 Aortic stenosis Chronic atrial fibrillation Tinnitus (~1984) Glaucoma Elevated prostate specific antigen (PSA) (06/18/16) Mixed hyperlipidemia (04/03/16) Coronary artery disease involving [place] coronary artery without angina pectoris (04/03/16) Surgical History (Updated 08/04/22 @ 11:01 by Mehrdad Olivier MD) S/P TAVR (transcatheter aortic valve replacement) (~06/2022) S/P prostatectomy (~02/20/21) Anesthesia History of heart bypass surgery (~2013) Status post appendectomy History of tonsillectomy Family History Father Prostate cancer Mother Skin cancer Heart disease Brother No problems noted. Grandfather No problems noted. Social History marital status: number of children: 2 household members: spouse Smoking Status: Former smoker alcohol intake: current caffeine: No Smoking Status: Former smoker alcohol intake frequency: holidays/special occasions only Substance Use Type: does not use Exam Initial Vital Signs Initial Vital Signs: Vital Signs Temperature 98.2 F 06/08/24 09:02 Pulse Rate 87 06/08/24 09:02 Respiratory Rate 14 06/08/24 09:02 Blood Pressure 118/58 L 06/08/24 09:02 Pulse Oximetry 99 06/08/24 09:02 Oxygen Delivery Method Room Air 06/08/24 09:02 General: Frail-appearing, quite dry able to respond to direct questions HEENT: Dry mucous membranes, normal sclera with reactive pupils, Respiratory: Lungs are clear to auscultation, no wheezing no rales no rhonchi. Full and symmetrical air movement Cardiac: Regular rate and rhythm, 3/6 murmurs no bruits Abdomen: Soft, nontender, good bowel tones, no flank pain Skin: Warm and dry, no rashes Neurologic: Aside from global weakness he is otherwise Grossly neurologically intact with no obvious asymmetries or abnormalities Extremities: No trauma, no edema Psych: Globally weak, fatigued Course Orders Ordered: ED Orders 06/08/24 09:00 Complete Blood Count AUTO DIFF Stat Comprehensive Metabolic Panel Stat Digoxin Stat Lactate (Lactic Acid) Stat Lipase Stat Magnesium Stat NT-proBNP (BNP-Adult 18+) Stat Procalcitonin Stat Prothrombin Time INR Stat Troponin I Stat 06/08/24 09:12 XR chest 1V Stat EKG-12 Lead Stat 06/08/24 09:24 Respiratory Panel (Film Array) Stat 06/08/24 09:31 Blood Culture Stat 06/08/24 10:11 Urinalysis and Microscopic Stat Urine Culture Stat 06/08/24 10:21 CT abdomen pelvis w con Stat Discontinued Medications Sodium Chloride (Normal Saline 0.9%) 1,000 mls @ 1,000 mls/hr IV BOLUS ONE Stop: 06/08/24 10:10 Last Infusion: 06/08/24 11:29 Dose: Infused Documented By: Admin: 06/08/24 09:32 Dose: 1,000 mls/hr Documented By: KADE Sodium Chloride (Normal Saline 0.9%) 1,000 mls @ 1,000 mls/hr IV BOLUS ONE Stop: 06/08/24 11:16 Last Infusion: 06/08/24 11:45 Dose: Infused Documented By: Admin: 06/08/24 10:35 Dose: 1,000 mls/hr Documented By: KADE Piperacillin Sod/Tazobactam (Sod 4.5 gm/ Sodium Chloride) 100 mls @ 200 mls/hr IV NOW ONE Stop: 06/08/24 10:24 Last Infusion: 06/08/24 11:22 Dose: Infused Documented By: Admin: 06/08/24 10:42 Dose: 200 mls/hr Documented By: KADE Vital Signs Vital signs: Vital Signs - 8 hr 06/08/24 09:02 06/08/24 09:42 06/08/24 09:43 Temperature 98.2 F Pulse Rate 87 92 H Respiratory Rate 14 19 Blood Pressure 118/58 L 111/58 L Pulse Oximetry 99 99 Oxygen Delivery Method Room Air 06/08/24 09:44 06/08/24 09:44 06/08/24 09:45 Temperature Pulse Rate 90 92 H Respiratory Rate 21 25 H Blood Pressure 108/51 L Pulse Oximetry 91 100 Oxygen Delivery Method 06/08/24 09:45 06/08/24 10:00 06/08/24 10:00 Temperature Pulse Rate 88 Respiratory Rate 19 Blood Pressure 114/56 L 121/60 Pulse Oximetry 98 Oxygen Delivery Method 06/08/24 10:15 06/08/24 10:15 06/08/24 10:40 Temperature Pulse Rate 86 81 Respiratory Rate 26 H 26 H Blood Pressure 135/58 L Pulse Oximetry 100 99 Oxygen Delivery Method 06/08/24 11:00 06/08/24 11:29 06/08/24 11:29 Temperature Pulse Rate 82 84 Respiratory Rate 27 H 20 Blood Pressure 148/63 H Pulse Oximetry 100 100 Oxygen Delivery Method 06/08/24 11:30 06/08/24 11:30 06/08/24 11:45 Temperature Pulse Rate 86 79 Respiratory Rate 23 19 Blood Pressure 145/65 H Pulse Oximetry 100 100 Oxygen Delivery Method 06/08/24 11:45 06/08/24 12:00 06/08/24 12:00 Temperature Pulse Rate 83 Respiratory Rate 25 H Blood Pressure 132/72 130/56 L Pulse Oximetry 99 Oxygen Delivery Method 06/08/24 12:15 06/08/24 12:15 06/08/24 12:30 Temperature Pulse Rate 86 83 Respiratory Rate 14 25 H Blood Pressure 130/62 Pulse Oximetry 100 100 Oxygen Delivery Method 06/08/24 12:30 06/08/24 12:45 06/08/24 12:45 Temperature Pulse Rate 81 Respiratory Rate 30 H Blood Pressure 139/62 132/60 Pulse Oximetry 100 Oxygen Delivery Method 06/08/24 13:00 06/08/24 13:00 06/08/24 13:15 Temperature Pulse Rate 80 Respiratory Rate 20 Blood Pressure 124/56 L 141/59 H Pulse Oximetry 91 Oxygen Delivery Method 06/08/24 13:15 06/08/24 13:30 06/08/24 13:30 Temperature Pulse Rate 84 82 Respiratory Rate 21 22 Blood Pressure 153/63 H Pulse Oximetry 100 100 Oxygen Delivery Method Medical Decision Making Lab Data 06/08/24 09:00 06/08/24 09:00 Labs: Lab Results 06/08/24 06/08/24 06/08/24 Range/Units 09:00 09:24 10:11 WBC 18.6 H (4.5-11.0) X10^3/uL RBC 3.22 L (4.5-5.9) X10^6/uL Hgb 9.9 L (13.5-17.5) g/dL Hct 29.8 L (41-53) % MCV 92.6 (80-100) fL MCH 30.9 (26-34) PG MCHC 33.3 (30-36) % RDW 16.2 H (11.6-14.8) % Plt Count 428 H (150-400) X10^3/uL Neut % (Auto) 87.5 H (50-75) % Lymph % (Auto) 4.2 L (25-40) % [place] % (Auto) 7.8 (3-14) % Eos % (Auto) 0.2 L (2-4) % Baso % (Auto) 0.3 (0-2) % Neut # (Auto) 00559 H (0757-4093) /uL Lymph # (Auto) 800 L (0835-2367) /uL [place] # (Auto) 1500 H (0-900) /uL Eos # (Auto) 0 (0-450) /uL Baso # (Auto) 100 (0-100) /uL PT 14.3 H (9.4-12.5) SECONDS INR 1.2 (0.9-1.3) Sodium 129 L (137-145) mmol/L Potassium 4.2 (3.4-5.1) mmol/L Chloride 98 (98-107) mmol/L Carbon Dioxide 20 L (22-32) mmol/L BUN 38 H (9-20) mg/dL Creatinine 1.84 H (0.66-1.25) mg/dL Estimated GFR 37 L (>60) mL/min BUN/Creatinine Ratio 20.7 (6-22) Glucose 216 H (80-110) mg/dL Lactate 4.3 H* (0.7-2.1) mmol/L Calcium 9.2 (8.4-10.2) mg/dL Magnesium 2.1 (1.6-2.3) mg/dL Total Bilirubin 1.1 (0.2-1.3) mg/dL AST 41 (17-59) IU/L ALT 41 (<50) IU/L Alkaline Phosphatase 101 (38-126) U/L Troponin I 0.023 (0.01-0.034) ng/mL NT-Pro-B Natriuret Pep 7980 H (<450) pg/mL Total Protein 8.2 (6.3-8.2) g/dL Albumin 3.9 (3.5-5.0) g/dL Globulin 4.3 H (1.7-4.1) g/dL Albumin/Globulin Ratio 0.9 L (1.0-2.8) Lipase 61 (23-300) U/L Procalcitonin 0.739 H (<0.5) ng/mL Urine Color Yellow Urine Appearance Cloudy Urine pH 6.0 (4.5-8.0) Ur Specific [place] 1.010 (1.000-1.035) Urine Protein 2+ H (Negative) Urine Glucose (UA) Negative (Negative) g/dL Urine Ketones Negative (NEGATIVE) Urine Occult Blood 2+ H (Negative) Urine Nitrate Negative (Negative) Urine Bilirubin Negative (NEGATIVE) Urine Urobilinogen 0.2 (0.2) E.U./dL Ur Leukocyte Esterase 3+ H (NEGATIVE) Urine RBC 0-1/hpf (0-5/HPF) Urine WBC 30-100/hpf H (0-5/HPF) Ur Squamous Epith Cells None seen (0-5/HPF) Urine Bacteria Moderate (10-30) H (None) Ur Culture Indicated? Specimen cultured Vol Urine Centrifuged 10ml (spun) Digoxin < 0.4 L (0.8-2.0) ng/mL Chlamy pneumoniae PCR Not detected (Not Detect) Adenovirus (PCR) Not detected (Not Detect) B. pertussis DNA (PCR) Not detected (Not Detect) B.parapertussis DNA PCR Not detected (Not Detecte) Coronavirus OC43 (PCR) Not detected (Not Detect) Coronavirus HKU1 (PCR) Not detected (Not Detect) Coronavirus 229E (PCR) Not detected (Not Detect) SARS-CoV-2 (PCR) Not detected (Not Detecte) Coronavirus NL63 (PCR) Not detected (Not Detect) Human Metapneumovir PCR Not detected (Not Detect) Influenza Type A (PCR) Not detected (Not Detect) Influenza Type B (PCR) Not detected (Not Detect) M. pneumoniae (PCR) Not detected (Not Detect) Parainfluenza 1 (PCR) Not detected (Not Detect) Parainfluenza 2 (PCR) Not detected (Not Detect) Parainfluenza 3 (PCR) Not detected (Not Detect) Parainfluenza 4 (PCR) Not detected (Not Detect) RSV (PCR) Not detected (Not Detect) Entero/Rhino (PCR) Not detected (Not Detect) 06/08/24 Range/Units 11:25 WBC (4.5-11.0) X10^3/uL RBC (4.5-5.9) X10^6/uL Hgb (13.5-17.5) g/dL Hct (41-53) % MCV (80-100) fL MCH (26-34) PG MCHC (30-36) % RDW (11.6-14.8) % Plt Count (150-400) X10^3/uL Neut % (Auto) (50-75) % Lymph % (Auto) (25-40) % [place] % (Auto) (3-14) % Eos % (Auto) (2-4) % Baso % (Auto) (0-2) % Neut # (Auto) (6533-7629) /uL Lymph # (Auto) (6574-6575) /uL [place] # (Auto) (0-900) /uL Eos # (Auto) (0-450) /uL Baso # (Auto) (0-100) /uL PT (9.4-12.5) SECONDS INR (0.9-1.3) Sodium (137-145) mmol/L Potassium (3.4-5.1) mmol/L Chloride (98-107) mmol/L Carbon Dioxide (22-32) mmol/L BUN (9-20) mg/dL Creatinine (0.66-1.25) mg/dL Estimated GFR (>60) mL/min BUN/Creatinine Ratio (6-22) Glucose (80-110) mg/dL Lactate 1.0 (0.7-2.1) mmol/L Calcium (8.4-10.2) mg/dL Magnesium (1.6-2.3) mg/dL Total Bilirubin (0.2-1.3) mg/dL AST (17-59) IU/L ALT (<50) IU/L Alkaline Phosphatase (38-126) U/L Troponin I (0.01-0.034) ng/mL NT-Pro-B Natriuret Pep (<450) pg/mL Total Protein (6.3-8.2) g/dL Albumin (3.5-5.0) g/dL Globulin (1.7-4.1) g/dL Albumin/Globulin Ratio (1.0-2.8) Lipase (23-300) U/L Procalcitonin (<0.5) ng/mL Urine Color Urine Appearance Urine pH (4.5-8.0) Ur Specific [place] (1.000-1.035) Urine Protein (Negative) Urine Glucose (UA) (Negative) g/dL Urine Ketones (NEGATIVE) Urine Occult Blood (Negative) Urine Nitrate (Negative) Urine Bilirubin (NEGATIVE) Urine Urobilinogen (0.2) E.U./dL Ur Leukocyte Esterase (NEGATIVE) Urine RBC (0-5/HPF) Urine WBC (0-5/HPF) Ur Squamous Epith Cells (0-5/HPF) Urine Bacteria (None) Ur Culture Indicated? Vol Urine Centrifuged Digoxin (0.8-2.0) ng/mL Chlamy pneumoniae PCR (Not Detect) Adenovirus (PCR) (Not Detect) B. pertussis DNA (PCR) (Not Detect) B.parapertussis DNA PCR (Not Detecte) Coronavirus OC43 (PCR) (Not Detect) Coronavirus HKU1 (PCR) (Not Detect) Coronavirus 229E (PCR) (Not Detect) SARS-CoV-2 (PCR) (Not Detecte) Coronavirus NL63 (PCR) (Not Detect) Human Metapneumovir PCR (Not Detect) Influenza Type A (PCR) (Not Detect) Influenza Type B (PCR) (Not Detect) M. pneumoniae (PCR) (Not Detect) Parainfluenza 1 (PCR) (Not Detect) Parainfluenza 2 (PCR) (Not Detect) Parainfluenza 3 (PCR) (Not Detect) Parainfluenza 4 (PCR) (Not Detect) RSV (PCR) (Not Detect) Entero/Rhino (PCR) (Not Detect) Imaging Data CT scan - abdomen/pelvis: Radiologist's Impression: PROCEDURE: CT ABDOMEN PELVIS W CON INDICATIONS: sepsis uncertain source TECHNIQUE: After the administration of intravenous contrast, axial sections acquired from the lung bases to the pubic symphysis. Coronal and sagittal reformats were performed. For radiation dose reduction, the following was used: automated exposure control, adjustment of mA and/or kV according to patient size. COMPARISON: [facility], CT, CT IVP, 02/04/2024, 9:07. FINDINGS: Image quality: Diagnostic. Lower Chest: No significant findings. ABDOMEN: Liver: No solid mass. Gallbladder: No radiopaque gallstones or wall thickening. Biliary ducts: No biliary dilation. Pancreas: No ductal dilation. Spleen: Size is within normal limits. Adrenal Glands: No adrenal nodules. Kidneys and Ureters: No hydronephrosis however there is a slight degree of perinephric edema bilaterally, left greater than right. This is associated with a subtle finding of mild urothelial thickening and enhancement, also greater on the left than the right, not previously present on the comparison study from January of this year. No solid mass. No complex renal cystic lesion which requires follow up. Stomach and Bowel: Normal colonic caliber, without significant wall thickening. Peritoneum: No abnormal intraperitoneal fluid. No free air. Ventral Wall: No significant ventral hernia. Abdominal Nodes: No retroperitoneal or mesenteric adenopathy by size criteria. Vessels: Aorta and inferior vena cava are normal in size. PELVIS: Pelvic Organs: Unremarkable. Bladder: No bladder wall thickening, accounting for underdistention. Pelvic Nodes: No enlarged lymph nodes. Miscellaneous: No inguinal hernias are seen. Bones: No aggressive osseous abnormality. IMPRESSION: Suspect urinary tract infection as cause of the mild asymmetric left greater than right perinephric edema and the slight pattern of mild urothelial thickening and enhancement through the kidneys and ureters bilaterally. The bladder itself does not appear distended but shows mild concentric bladder wall thickening. A urinary tract stone is not seen. Dictated by: Laurent Hirsch M.D. on 06/08/2024 at 11:14 MDM Narrative Medical decision making narrative: CC: Weakness increasing for a week Complicating co-morbidities: Diabetes, chronic renal failure, atrial fibrillation on warfarin and digoxin, aortic stenosis, history of hyperlipidemia, coronary artery disease and prior prostate cancer notes that he has been depressed, eating less and clearly Failing to thrive of light Data collected from: patient Medical records reviewed: Primary care note from May 30, 2024 is reviewed Differential considered: Viral syndrome, complete kidney failure, digoxin toxicity Exam documented above, pertinent findings include: Patient is pale, quite dry mucous membranes, globally weak and remainder of exam is fairly benign Lab Test results independently reviewed as above. Pertinent findings: CBC shows a white count of 18.6, slight decrease in H&H, thrombocytosis with platelets at 428 Chemistries show hyponatremia at 129, not dramatically off from his baseline Elevated creatinine 1.8 Lactic is elevated at 4.3 Liver enzymes are unremarkable ProBNP is elevated at 7980 Procalcitonin elevated at 0.739 Urine has white cells, bacteria, leukocyte esterase, likely source of infection Independently reviewed EKG: Atrial fibrillation at a rate of 80, no significant changes Imaging studies independently reviewed: Chest x-ray does not suggest dramatic volume overload or infiltrate suggesting pneumonia CT scan of the abdomen suggests UTI/pyelonephritis. No abscess or other source of infection identified Treatments: Fluids are initiated for presumed dehydration based on his clinical exam With lactic elevated and white cell count elevated, will repeat fluids, expand antibiotics and do a CT scan of his abdomen to see if source can be further identified Discussion: 78-year-old gentleman with depression and failure to thrive at baseline increasing weakness over the last week with significant urinary frequency but no obvious hematuria appreciated. Describes no fevers. Lab studies reveal positive urine sample, CT scan suggests perinephric stranding suggesting developing pyelonephritis. Patient is significantly dehydrated with mild acute kidney injury, hyponatremia, lactic acid was initially 4.3 and with fluid resuscitation has come down to 1. Zosyn was started with concerns for sepsis can likely be narrowed down a bit with continued antibiotics malaise twice to the hospitalist. At this point patient is weak enough that he is still having difficulty sitting up. At this point is not showing signs of sepsis. Findings reviewed with patient and his they understand need for continued IV antibiotics, observation, electrolyte replacement, dehydration with acute kidney injury. remains quite concerned about his mental status and depression overall. Care is reviewed with Dr. Olivier and patient will be admitted Additional Information: Severe Sepsis Criteria [ x ] bacterial source of infection suspected and documented [ ] 2 SIRS Criteria met [ ] HR >90 [ ] RR >20 [ ] fever or hypothermia [ x] leukocytosis/leukopenia/bandemia [ ] Evidence of at least 1 organ system dysfunction [x ] Lactate > 2 [ ] BP < 90 or MAP <65, >40mm decrease from normal baseline [ ] Creat > 2.0 [ ] T. Bili > 2.0 [ ] platelet count < 100k [ ] altered mental status [ ] mechanical ventilation [ ] provider documentation of severe sepsis Severe Sepsis Determination. the patient has been screened and [ ] DOES meet criteria for severe sepsis [x ] DOES NOT meet criteria for severe sepsis Discharge Plan Departure Patient Disposition: Admitted As Inpatient Clinical Impression: SIRS (systemic inflammatory response syndrome), Acute dehydration, Acute kidney injury Urinary tract infection Qualifiers: Urinary tract infection type: site unspecified Hematuria presence: with hematuria Qualified Code(s): N39.0 - Urinary tract infection, site not specified Depression Qualifiers: Depression Type: unspecified Qualified Code(s): F32.A - Depression, unspecified
--- NOTE | 2024-06-08 09:12 | DI.RAD.S_ITS ---
PROCEDURE: XR CHEST 1V INDICATIONS: weakness for 1 week TECHNIQUE: One view of the chest was acquired. COMPARISON: [facility], CR, XR CHEST 1V, 08/11/2022, 14:55. [facility], CR, XR CHEST 1V, 05/06/2022, 10:01. FINDINGS: Surgical changes and devices: Sternotomy wires and presumed aortic valve replacement with expandable stent annulus stable over time. Lungs and pleura: Lungs are clear. No pleural effusions or pneumothorax. Mediastinum: Mediastinal contours appear normal. Heart size is at the upper limits of normal. Bones and chest wall: No suspicious bony lesions. Overlying soft tissues appear unremarkable. IMPRESSION: Stable postsurgical changes, no definite pulmonary edema. Heart size at upper limits of normal. Dictated by: Laurent Hirsch M.D. on 06/08/2024 at 10:45 Approved by: Laurent Hirsch M.D. on 06/08/2024 at 10:46
[2024-06-08 09:26] LABS: Add Manual Diff / Slide Review NO; Basophils Absolute Auto 100 /uL (0-100); Basophils Percent Auto 0.3 % (0-2); Eosinophils Absolute Auto 0 /uL (0-450); Eosinophils Percent Auto 0.2 % (2-4); Hematocrit 29.8 % (41-53); Hemoglobin 9.9 g/dL (13.5-17.5); Lymphocytes Absolute Auto 800 /uL (1100-4500); Lymphocytes Percent Auto 4.2 % (25-40); Mean Corpuscular HGB Conc 33.3 % (30-36); Mean Corpuscular Hemoglobin 30.9 PG (26-34); Mean Corpuscular Volume 92.6 fL (80-100); Monocytes Absolute Auto 1500 /uL (0-900); Monocytes Percent Auto 7.8 % (3-14); Neutrophils Absolute Auto 16300 /uL (1500-7000); Neutrophils Percent Auto 87.5 % (50-75); Platelet Count 428 X10^3/uL (150-400); Red Blood Cell Count 3.22 X10^6/uL (4.5-5.9); Red Cell Distribution Width 16.2 % (11.6-14.8); White Blood Cell Count 18.6 X10^3/uL (4.5-11.0)
[2024-06-08] MEDS: SODIUM CHLORIDE 0.9% 1,000 ML 1000 ML IV ×2 (09:32→10:35)
[2024-06-08 09:33] LABS: Alanine Aminotransferase 41 IU/L (<50); Albumin 3.9 g/dL (3.5-5.0); Albumin Globulin Ratio 0.9 (1.0-2.8); Alkaline Phosphatase 101 U/L (38-126); Aspartate Aminotransferase 41 IU/L (17-59); BUN Creatinine Ratio 20.7 (6-22); Bilirubin Total 1.1 mg/dL (0.2-1.3); Blood Urea Nitrogen 38 mg/dL (9-20); Calcium 9.2 mg/dL (8.4-10.2); Carbon Dioxide 20 mmol/L (22-32); Chloride 98 mmol/L (98-107); Estimated Glomerular Filt Rate 37 mL/min (>60); Globulin 4.3 g/dL (1.7-4.1); Glucose 216 mg/dL (80-110); HEMOLYSIS < 15 (0-50); Lipase 61 U/L (23-300); Magnesium 2.1 mg/dL (1.6-2.3); Potassium 4.2 mmol/L (3.4-5.1); Sodium 129 mmol/L (137-145); Total Protein 8.2 g/dL (6.3-8.2)
--- NOTE | 2024-06-08 09:36 | EKG_ITS ---
[facility] [address] [place] [address] Test Date: 2024-06-08 Pat Name: Mehrdad Luna Department: [facility] Room: Gender: Male Emergency Department Director: : 1945 Requested By: Order Number: [id number] Reading MD: Dixon Gallardo Measurements Intervals [place] Rate: 98 P: [place]: QRS: -28 QRSD: 88 T: 151 QT: 374 QTc: 477 Interpretive Statements Atrial fibrillation ST & T wave abnormality, consider lateral ischemia Prolonged QT Electronically Signed On 06-12-2024 15:21:43 PDT by Dixon Gallardo
[2024-06-08 09:37] LABS: Lactate (Lactic Acid) 4.3 mmol/L (0.7-2.1)
--- NOTE | 2024-06-08 09:37 | EKG_ITS ---
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
[2024-06-08 09:45] LABS: NT-proBNP (BNP-Adult 18+) 7980 pg/mL (<450); Troponin I 0.023 ng/mL (0.01-0.034)
[2024-06-08 09:49] LABS: Procalcitonin 0.739 ng/mL (<0.5)
--- NOTE | 2024-06-08 10:21 | DI.CT.S_ITS ---
PROCEDURE: CT ABDOMEN PELVIS W CON INDICATIONS: sepsis uncertain source TECHNIQUE: After the administration of intravenous contrast, axial sections acquired from the lung bases to the pubic symphysis. Coronal and sagittal reformats were performed. For radiation dose reduction, the following was used: automated exposure control, adjustment of mA and/or kV according to patient size. COMPARISON: [facility], CT, CT IVP, 02/04/2024, 9:07. FINDINGS: Image quality: Diagnostic. Lower Chest: No significant findings. ABDOMEN: Liver: No solid mass. Gallbladder: No radiopaque gallstones or wall thickening. Biliary ducts: No biliary dilation. Pancreas: No ductal dilation. Spleen: Size is within normal limits. Adrenal Glands: No adrenal nodules. Kidneys and Ureters: No hydronephrosis however there is a slight degree of perinephric edema bilaterally, left greater than right. This is associated with a subtle finding of mild urothelial thickening and enhancement, also greater on the left than the right, not previously present on the comparison study from January of this year. No solid mass. No complex renal cystic lesion which requires follow up. Stomach and Bowel: Normal colonic caliber, without significant wall thickening. Peritoneum: No abnormal intraperitoneal fluid. No free air. Ventral Wall: No significant ventral hernia. Abdominal Nodes: No retroperitoneal or mesenteric adenopathy by size criteria. Vessels: Aorta and inferior vena cava are normal in size. PELVIS: Pelvic Organs: Unremarkable. Bladder: No bladder wall thickening, accounting for underdistention. Pelvic Nodes: No enlarged lymph nodes. Miscellaneous: No inguinal hernias are seen. Bones: No aggressive osseous abnormality. IMPRESSION: Suspect urinary tract infection as cause of the mild asymmetric left greater than right perinephric edema and the slight pattern of mild urothelial thickening and enhancement through the kidneys and ureters bilaterally. The bladder itself does not appear distended but shows mild concentric bladder wall thickening. A urinary tract stone is not seen. Dictated by: Laurent Hirsch M.D. on 06/08/2024 at 11:14 Approved by: Laurent Hirsch M.D. on 06/08/2024 at 11:19
[2024-06-08 10:23] LABS: Appearance Urine UA CLOUDY; Bilirubin Urine UA NEGATIVE (NEGATIVE); Color Urine UA YELLOW; Glucose Urine UA NEGATIVE (Negative); Ketones Urine UA NEGATIVE (NEGATIVE); Leukocyte Esterase Urine UA 3+ (NEGATIVE); Nitrite Urine UA NEGATIVE (Negative); Occult Blood Urine UA 2+ (Negative); Protein Urine UA 2+ (Negative); Urobilinogen Urine UA 0.2 E.U./dL (0.2)
[2024-06-08 10:24] LABS: INR 1.2 (0.9-1.3); Prothrombin Time 14.3 SECONDS (9.4-12.5)
[2024-06-08 10:29] LABS: Adenovirus Not Detected (Not Detect); B. parapertussis Not Detected (Not Detecte); Bordetella pertussis Not Detected (Not Detect); Chlamydophila pneumoniae Not Detected (Not Detect); Coronavirus 229E Not Detected (Not Detect); Coronavirus HKU1 Not Detected (Not Detect); Coronavirus NL 63 Not Detected (Not Detect); Coronavirus OC43 Not Detected (Not Detect); Human Metapneumovirus Not Detected (Not Detect); Human Rhinovirus/Enterovirus Not Detected (Not Detect); Influenza A Not Detected (Not Detect); Influenza B Not Detected (Not Detect); Mycoplasma pneumoniae Not Detected (Not Detect); Parainfluenza Virus 1 Not Detected (Not Detect); Parainfluenza Virus 2 Not Detected (Not Detect); Parainfluenza Virus 3 Not Detected (Not Detect); Parainfluenza Virus 4 Not Detected (Not Detect); Respiratory Syncytial Virus Not Detected (Not Detect); SARS- CoV-2 Not Detected (Not Detecte)
[2024-06-08 10:33] LABS: Digoxin < 0.4 ng/mL (0.8-2.0)
[2024-06-08 10:34] LABS: Bacteria Urine Moderate (10-30); RBC Urine 0-1/HPF (0-5/HPF); Squamous Epithelial Cell Urine None Seen (0-5/HPF); Urine Volume 10mL (spun); WBC Urine 30-100/HPF (0-5/HPF)
[2024-06-08 10:35] LABS: Culture Indicated Urine Specimen Cultured
[2024-06-08] MEDS: PIPERACILLIN/TAZO 4.5 GM in SODIUM CHLORIDE 0.9% 100 ML IV (10:42)
[2024-06-08 10:58] LABS: Reflexed Lactate in 2 Hours Y
--- NOTE | 2024-06-08 14:19 | PM.HP.1 ---
History of Present Illness History of Present Illness Date Patient Seen: 06/08/24 Time Patient Seen: 14:19 Chief complaint: Weakness Narrative: 78-year-old male with multiple medical problems recently struggling to recover from TAVR who apparently he has been increasingly weak and in bed really refusing to eat or drink much of anything per spouse. There were apparently been no fever or chills. Denies any back pain. Denies any urinary symptoms either Patient presented to the ER in this situation, evaluation in the ER revealed a leukocytosis with left shifts with 18,000 white count initially, positive UA, evidence of acute kidney injury with a creatinine now 1.8. Hemodynamics were stable otherwise however including heart rate and blood pressure. Oxygen saturation normal Chest x-ray unremarkable, CT scan demonstrates bilateral perinephric stranding left greater than right and other changes consistent in the ureter and bladder wall with an infectious etiology Patient received boluses of IV fluids as well as dose of broad-spectrum parental antibiotics in the emergency department and was admitted for further treatment [facility] Medical History (Updated 06/08/24 @ 14:08 by Iraida Breen MD) Chronic renal failure, stage 3a Controlled type 2 diabetes mellitus without complication Prostate cancer Anticoagulated on warfarin Family history of prostate cancer in father 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 Aortic stenosis Chronic atrial fibrillation Tinnitus (~1984) Glaucoma Elevated prostate specific antigen (PSA) (06/18/16) Mixed hyperlipidemia (04/03/16) Coronary artery disease involving [place] coronary artery without angina pectoris (04/03/16) Surgical History (Updated 08/04/22 @ 11:01 by Mehrdad Olivier MD) S/P TAVR (transcatheter aortic valve replacement) (~06/2022) S/P prostatectomy (~02/20/21) Anesthesia History of heart bypass surgery (~2013) Status post appendectomy History of tonsillectomy Family History Father Prostate cancer Mother Skin cancer Heart disease Brother No problems noted. Grandfather No problems noted. Social History marital status: number of children: 2 household members: spouse Smoking Status: Former smoker alcohol intake: current caffeine: No Meds Home Medications and Allergies Home Medications Medication Instructions Recorded Confirmed Type vitamin B complex (Vitamins B 1 cap PO DAILY 08/31/22 06/08/24 History Complex capsule) Disabled Parking #1 ea 01/25/23 06/08/24 Rx aspirin 81 mg tablet,delayed 81 mg PO DAILY 04/02/23 06/08/24 History release (Adult Low Dose Aspirin) digoxin 125 mcg (0.125 mg) tablet 125 mcg PO DAILY #90 tabs 02/07/24 06/08/24 Rx glipizide 5 mg tablet, extended 5 mg PO BID #180 tabs 04/17/24 06/08/24 Rx release 24 hr melatonin 3 mg capsule 3 mg PO BEDTIME PRN Insomnia 05/30/24 06/08/24 History metoprolol succinate 50 mg See Rx Instructions PO .COMPLEX 05/30/24 06/08/24 History tablet,extended release 24 hr tolterodine 4 mg capsule,extended 4 mg PO DAILY #90 caps 06/02/24 06/08/24 Rx release 24 hr Allergies Allergy/AdvReac Type Severity Reaction Status Date / Time metformin AdvReac Intermediate Diarrhea Verified 06/08/24 09:07 Review of Systems Review of Systems ROS: Yes All systems reviewed with the patient and are negative except as otherwise documented Exam Vital Signs (past 8 hours): - 06/08/24 09:02 06/08/24 09:42 06/08/24 09:43 Temperature 98.2 F Pulse Rate 87 92 H Respiratory Rate 14 19 Blood Pressure 118/58 L 111/58 L Pulse Oximetry 99 99 Oxygen Delivery Method Room Air 06/08/24 09:44 06/08/24 09:44 06/08/24 09:45 Temperature Pulse Rate 90 92 H Respiratory Rate 21 25 H Blood Pressure 108/51 L Pulse Oximetry 91 100 Oxygen Delivery Method 06/08/24 09:45 06/08/24 10:00 06/08/24 10:00 Temperature Pulse Rate 88 Respiratory Rate 19 Blood Pressure 114/56 L 121/60 Pulse Oximetry 98 Oxygen Delivery Method 06/08/24 10:15 06/08/24 10:15 06/08/24 10:40 Temperature Pulse Rate 86 81 Respiratory Rate 26 H 26 H Blood Pressure 135/58 L Pulse Oximetry 100 99 Oxygen Delivery Method 06/08/24 11:00 06/08/24 11:29 06/08/24 11:29 Temperature Pulse Rate 82 84 Respiratory Rate 27 H 20 Blood Pressure 148/63 H Pulse Oximetry 100 100 Oxygen Delivery Method 06/08/24 11:30 06/08/24 11:30 06/08/24 11:45 Temperature Pulse Rate 86 79 Respiratory Rate 23 19 Blood Pressure 145/65 H Pulse Oximetry 100 100 Oxygen Delivery Method 06/08/24 11:45 06/08/24 12:00 06/08/24 12:00 Temperature Pulse Rate 83 Respiratory Rate 25 H Blood Pressure 132/72 130/56 L Pulse Oximetry 99 Oxygen Delivery Method 06/08/24 12:15 06/08/24 12:15 06/08/24 12:30 Temperature Pulse Rate 86 83 Respiratory Rate 14 25 H Blood Pressure 130/62 Pulse Oximetry 100 100 Oxygen Delivery Method 06/08/24 12:30 06/08/24 12:45 06/08/24 12:45 Temperature Pulse Rate 81 Respiratory Rate 30 H Blood Pressure 139/62 132/60 Pulse Oximetry 100 Oxygen Delivery Method 06/08/24 13:00 06/08/24 13:00 06/08/24 13:15 Temperature Pulse Rate 80 Respiratory Rate 20 Blood Pressure 124/56 L 141/59 H Pulse Oximetry 91 Oxygen Delivery Method 06/08/24 13:15 06/08/24 13:30 06/08/24 13:30 Temperature Pulse Rate 84 82 Respiratory Rate 21 22 Blood Pressure 153/63 H Pulse Oximetry 100 100 Oxygen Delivery Method Oxygen Delivery Method Room Air Narrative Exam Narrative: Elderly male in no obvious distress lying in hospital bed. Recognizes me without difficulty. Able to relate to reliable story about his recent history HEENT-unremarkable Lungs-clear with good breath sounds no wheezes no crackles Heart-irregularly irregular with grade 2-3/6 systolic ejection murmur across the precordium radiates towards the right neck Abdomen-soft nontender nondistended no hepatosplenomegaly no masses palpable Extremities-no cyanosis clubbing or edema Back-no CVA tenderness Objective Labs 06/08/24 09:00 06/08/24 09:00 Labs: Laboratory Results - last 24 hr 06/08/24 06/08/24 06/08/24 09:00 09:24 10:11 WBC 18.6 H RBC 3.22 L Hgb 9.9 L Hct 29.8 L MCV 92.6 MCH 30.9 MCHC 33.3 RDW 16.2 H Plt Count 428 H Neut % (Auto) 87.5 H Lymph % (Auto) 4.2 L [place] % (Auto) 7.8 Eos % (Auto) 0.2 L Baso % (Auto) 0.3 Neut # (Auto) 05330 H Lymph # (Auto) 800 L [place] # (Auto) 1500 H Eos # (Auto) 0 Baso # (Auto) 100 PT 14.3 H INR 1.2 Sodium 129 L Potassium 4.2 Chloride 98 Carbon Dioxide 20 L BUN 38 H Creatinine 1.84 H Estimated GFR 37 L BUN/Creatinine Ratio 20.7 Glucose 216 H Lactate 4.3 H* Calcium 9.2 Magnesium 2.1 Total Bilirubin 1.1 AST 41 ALT 41 Alkaline Phosphatase 101 Troponin I 0.023 NT-Pro-B Natriuret Pep 7980 H Total Protein 8.2 Albumin 3.9 Globulin 4.3 H Albumin/Globulin Ratio 0.9 L Lipase 61 Procalcitonin 0.739 H Urine Color Yellow Urine Appearance Cloudy Urine pH 6.0 Ur Specific [place] 1.010 Urine Protein 2+ H Urine Glucose (UA) Negative Urine Ketones Negative Urine Occult Blood 2+ H Urine Nitrate Negative Urine Bilirubin Negative Urine Urobilinogen 0.2 Ur Leukocyte Esterase 3+ H Urine RBC 0-1/hpf Urine WBC 30-100/hpf H Ur Squamous Epith Cells None seen Urine Bacteria Moderate (10-30) H Ur Culture Indicated? Specimen cultured Vol Urine Centrifuged 10ml (spun) Digoxin < 0.4 L [place] pneumoniae PCR Not detected Adenovirus (PCR) Not detected B. pertussis DNA (PCR) Not detected B.parapertussis DNA PCR Not detected Coronavirus OC43 (PCR) Not detected Coronavirus HKU1 (PCR) Not detected Coronavirus 229E (PCR) Not detected SARS-CoV-2 (PCR) Not detected Coronavirus NL63 (PCR) Not detected Human Metapneumovir PCR Not detected Influenza Type A (PCR) Not detected Influenza Type B (PCR) Not detected M. pneumoniae (PCR) Not detected Parainfluenza 1 (PCR) Not detected Parainfluenza 2 (PCR) Not detected Parainfluenza 3 (PCR) Not detected Parainfluenza 4 (PCR) Not detected RSV (PCR) Not detected Entero/Rhino (PCR) Not detected 06/08/24 11:25 WBC RBC Hgb Hct MCV MCH MCHC RDW Plt Count Neut % (Auto) Lymph % (Auto) [place] % (Auto) Eos % (Auto) Baso % (Auto) Neut # (Auto) Lymph # (Auto) [place] # (Auto) Eos # (Auto) Baso # (Auto) PT INR Sodium Potassium Chloride Carbon Dioxide BUN Creatinine Estimated GFR BUN/Creatinine Ratio Glucose Lactate 1.0 Calcium Magnesium Total Bilirubin AST ALT Alkaline Phosphatase Troponin I NT-Pro-B Natriuret Pep Total Protein Albumin Globulin Albumin/Globulin Ratio Lipase Procalcitonin Urine Color Urine Appearance Urine pH Ur Specific [place] Urine Protein Urine Glucose (UA) Urine Ketones Urine Occult Blood Urine Nitrate Urine Bilirubin Urine Urobilinogen Ur Leukocyte Esterase Urine RBC Urine WBC Ur Squamous Epith Cells Urine Bacteria Ur Culture Indicated? Vol Urine Centrifuged Digoxin Chlamy pneumoniae PCR Adenovirus (PCR) B. pertussis DNA (PCR) B.parapertussis DNA PCR Coronavirus OC43 (PCR) Coronavirus HKU1 (PCR) Coronavirus 229E (PCR) SARS-CoV-2 (PCR) Coronavirus NL63 (PCR) Human Metapneumovir PCR Influenza Type A (PCR) Influenza Type B (PCR) M. pneumoniae (PCR) Parainfluenza 1 (PCR) Parainfluenza 2 (PCR) Parainfluenza 3 (PCR) Parainfluenza 4 (PCR) RSV (PCR) Entero/Rhino (PCR) Assessment & Plan Assessment & Plan narrative: 1. Acute UTI-patient with acute UTI causing his infectious symptoms etcetera. Will be treated with broad-spectrum IV antibiotics until we have identified an organism. Urine culture has been initiated 2. Acute kidney injury-patient would benefit from additional IV fluids in my opinion. Received 2 L of normal saline in the ER will continue with normal saline at 125 cc an hour recheck in the morning 3. Diabetes-patient normally on oral diabetes medication. Will hold that for now and place him on short-acting insulin coverage while monitoring his sugars frequently. Carbohydrate consistent diet has been ordered 4. Coronary disease/aortic valve replacement-continue current medications. I doubt that his presentation is that of an infected valve but that would be on the list of possibilities. Continue to monitor for evidence and consider repeat echocardiography if there is clinical indication 5. Atrial fibrillation-thus far patient with adequate rate control. Continue his usual metoprolol. Patient off anticoagulation due to fall risk as well as the gross hematuria he has been experiencing. He was left atrial appendage was amputated at time of his bypass surgery apparently in so per cardiology felt to be better off anticoagulation than on 6. Depression-patient with possible depression has a contributing factor to his lethargy and weakness. Will initiate treatment with bupropion at low-dose. This drug has a minimum interactions compared to some other choices such as citalopram 7. VTE prophylaxis-patient benefit from Lovenox, which has been ordered 8. Code status-full code per patient's request Time-Based Coding :: [TOTAL MINUTES] spent with patient and on the chart (including review of chart, obtaining history, exam, reviewing outside data, placing orders, documenting exam and treatment plan, and counseling patient) on [DATE]. PROFEE Charge Codes Initial inpatient/observation care: [id number]
[2024-06-08] MEDS: SODIUM CHLORIDE 0.9% 1,000 ML 125 ML IV (15:51)
--- NOTE | 2024-06-08 16:11 | PT-IP ANOTE ---
PT consult received. PT reviewed chart and checked in on pt. He declines PT this afternoon and PT encourages him that he will need to participate with assessment next date.
[2024-06-08] MEDS: METOPROLOL ER 50 MG TABLET PO (17:14)
[2024-06-08] MEDS: cefTRIAXone 2,000 MG in SODIUM CHLORIDE 0.9% 100 ML 200 MG IV (18:17)
[2024-06-08] MEDS: ACETAMINOPHEN 325 MG TABLET 650 MG PO (22:58)
[2024-06-09] VITALS (10 sets, daily range): BP systolic 109–143; BP diastolic 42–60; PULSE 68–95; RESP 14–20; TEMP 35.8–36.7; O2SAT 97–100
[2024-06-09] MEDS: SODIUM CHLORIDE 0.9% 1,000 ML 125 ML IV ×2 (00:29→09:43)
[2024-06-09 05:09] LABS: Add Manual Diff / Slide Review NO; Basophils Absolute Auto 0 /uL (0-100); Basophils Percent Auto 0.3 % (0-2); Eosinophils Absolute Auto 100 /uL (0-450); Hematocrit 21.9 % (41-53); Hemoglobin 7.4 g/dL (13.5-17.5); Lymphocytes Absolute Auto 800 /uL (1100-4500); Lymphocytes Percent Auto 8.8 % (25-40); Mean Corpuscular Hemoglobin 31.5 PG (26-34); Mean Corpuscular Volume 92.6 fL (80-100); Monocytes Absolute Auto 700 /uL (0-900); Monocytes Percent Auto 7.6 % (3-14); Neutrophils Absolute Auto 7700 /uL (1500-7000); Neutrophils Percent Auto 82.3 % (50-75); Platelet Count 248 X10^3/uL (150-400); Red Blood Cell Count 2.36 X10^6/uL (4.5-5.9); Red Cell Distribution Width 16.3 % (11.6-14.8); White Blood Cell Count 9.4 X10^3/uL (4.5-11.0)
[2024-06-09 05:29] LABS: BUN Creatinine Ratio 19.5 (6-22); Blood Urea Nitrogen 29 mg/dL (9-20); Calcium 8.1 mg/dL (8.4-10.2); Carbon Dioxide 23 mmol/L (22-32); Chloride 107 mmol/L (98-107); Estimated Glomerular Filt Rate 47 mL/min (>60); Glucose 85 mg/dL (80-110); HEMOLYSIS < 15 (0-50); Magnesium 2.1 mg/dL (1.6-2.3); Potassium 3.6 mmol/L (3.4-5.1); Sodium 133 mmol/L (137-145)
[2024-06-09] MEDS: ACETAMINOPHEN 325 MG TABLET 650 MG PO (06:33)
--- NOTE | 2024-06-09 07:41 | P.PN_ITS ---
Subjective Subjective Date Patient Seen: 06/09/24 Time Patient Seen: 07:42 Interval history: Mostly uneventful overnight Vital signs are stable. Trending a little bit down with blood pressure Lab work shows normalization of white blood cell count. Hemoglobin hematocrit dropped significantly (question delusional). Improvement in creatinine. Electrolytes normal Microbiology still pending Patient feeling better this morning. In fact he wants to go home. Does not want to get up with physical therapy, just wants to go home he was feeling that much better he says. Exam Vital Signs (past 8 hours): - 06/09/24 00:00 06/09/24 04:29 Temperature 97.2 F L 96.5 F L Pulse Rate 88 95 H Respiratory Rate 20 16 Blood Pressure 109/60 113/43 L Pulse Oximetry 97 98 Oxygen Flow Rate 0 0 Oxygen Delivery Method Room Air Oxygen Flow Rate 0 Objective Labs 06/09/24 04:45 06/09/24 04:45 Labs: Laboratory Results - last 24 hr 06/08/24 06/08/24 06/08/24 09:00 09:24 10:11 WBC 18.6 H RBC 3.22 L Hgb 9.9 L Hct 29.8 L MCV 92.6 MCH 30.9 MCHC 33.3 RDW 16.2 H Plt Count 428 H Neut % (Auto) 87.5 H Lymph % (Auto) 4.2 L [place] % (Auto) 7.8 Eos % (Auto) 0.2 L Baso % (Auto) 0.3 Neut # (Auto) 97299 H Lymph # (Auto) 800 L [place] # (Auto) 1500 H Eos # (Auto) 0 Baso # (Auto) 100 PT 14.3 H INR 1.2 Sodium 129 L Potassium 4.2 Chloride 98 Carbon Dioxide 20 L BUN 38 H Creatinine 1.84 H Estimated GFR 37 L BUN/Creatinine Ratio 20.7 Glucose 216 H Lactate 4.3 H* Calcium 9.2 Magnesium 2.1 Total Bilirubin 1.1 AST 41 ALT 41 Alkaline Phosphatase 101 Troponin I 0.023 NT-Pro-B Natriuret Pep 7980 H Total Protein 8.2 Albumin 3.9 Globulin 4.3 H Albumin/Globulin Ratio 0.9 L Lipase 61 Procalcitonin 0.739 H Urine Color Yellow Urine Appearance Cloudy Urine pH 6.0 Ur Specific [place] 1.010 Urine Protein 2+ H Urine Glucose (UA) Negative Urine Ketones Negative Urine Occult Blood 2+ H Urine Nitrate Negative Urine Bilirubin Negative Urine Urobilinogen 0.2 Ur Leukocyte Esterase 3+ H Urine RBC 0-1/hpf Urine WBC 30-100/hpf H Ur Squamous Epith Cells None seen Urine Bacteria Moderate (10-30) H Ur Culture Indicated? Specimen cultured Vol Urine Centrifuged 10ml (spun) Digoxin < 0.4 L Chlam[place] pneumoniae PCR Not detected Adenovirus (PCR) Not detected B. pertussis DNA (PCR) Not detected B.parapertussis DNA PCR Not detected Coronavirus OC43 (PCR) Not detected Coronavirus HKU1 (PCR) Not detected Coronavirus 229E (PCR) Not detected SARS-CoV-2 (PCR) Not detected Coronavirus NL63 (PCR) Not detected Human Metapneumovir PCR Not detected Influenza Type A (PCR) Not detected Influenza Type B (PCR) Not detected M. pneumoniae (PCR) Not detected Parainfluenza 1 (PCR) Not detected Parainfluenza 2 (PCR) Not detected Parainfluenza 3 (PCR) Not detected Parainfluenza 4 (PCR) Not detected RSV (PCR) Not detected Entero/Rhino (PCR) Not detected 06/08/24 06/09/24 11:25 04:45 WBC 9.4 RBC 2.36 L Hgb 7.4 L Hct 21.9 L MCV 92.6 MCH 31.5 MCHC 34.0 RDW 16.3 H Plt Count 248 Neut % (Auto) 82.3 H Lymph % (Auto) 8.8 L [place] % (Auto) 7.6 Eos % (Auto) 1.0 L Baso % (Auto) 0.3 Neut # (Auto) 7700 H Lymph # (Auto) 800 L [place] # (Auto) 700 Eos # (Auto) 100 Baso # (Auto) 0 PT INR Sodium 133 L Potassium 3.6 Chloride 107 Carbon Dioxide 23 BUN 29 H Creatinine 1.49 H Estimated GFR 47 L BUN/Creatinine Ratio 19.5 Glucose 85 D Lactate 1.0 Calcium 8.1 L Magnesium 2.1 Total Bilirubin AST ALT Alkaline Phosphatase Troponin I NT-Pro-B Natriuret Pep Total Protein Albumin Globulin Albumin/Globulin Ratio Lipase Procalcitonin Urine Color Urine Appearance Urine pH Ur Specific [place] Urine Protein Urine Glucose (UA) Urine Ketones Urine Occult Blood Urine Nitrate Urine Bilirubin Urine Urobilinogen Ur Leukocyte Esterase Urine RBC Urine WBC Ur Squamous Epith Cells Urine Bacteria Ur Culture Indicated? Vol Urine Centrifuged Digoxin Chlamy pneumoniae PCR Adenovirus (PCR) B. pertussis DNA (PCR) B.parapertussis DNA PCR Coronavirus OC43 (PCR) Coronavirus HKU1 (PCR) Coronavirus 229E (PCR) SARS-CoV-2 (PCR) Coronavirus NL63 (PCR) Human Metapneumovir PCR Influenza Type A (PCR) Influenza Type B (PCR) M. pneumoniae (PCR) Parainfluenza 1 (PCR) Parainfluenza 2 (PCR) Parainfluenza 3 (PCR) Parainfluenza 4 (PCR) RSV (PCR) Entero/Rhino (PCR) [facility] Medical History (Updated 06/08/24 @ 14:08 by Iraida Breen MD) Chronic renal failure, stage 3a Controlled type 2 diabetes mellitus without complication Prostate cancer Anticoagulated on warfarin Family history of prostate cancer in father 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 Aortic stenosis Chronic atrial fibrillation Tinnitus (~1984) Glaucoma Elevated prostate specific antigen (PSA) (06/18/16) Mixed hyperlipidemia (04/03/16) Coronary artery disease involving [place] coronary artery without angina pectoris (04/03/16) Surgical History (Updated 08/04/22 @ 11:01 by Mehrdad Olivier MD) S/P TAVR (transcatheter aortic valve replacement) (~06/2022) S/P prostatectomy (~02/20/21) Anesthesia History of heart bypass surgery (~2013) Status post appendectomy History of tonsillectomy Family History Father Prostate cancer Mother Skin cancer Heart disease Brother No problems noted. Grandfather No problems noted. Social History marital status: number of children: 2 household members: spouse Smoking Status: Former smoker alcohol intake: current caffeine: No Assessment & Plan Assessment & Plan narrative: 1. Acute complicated UTI with weakness etcetera-continue with current antibiotic therapy until culture results can guide to more specific therapy 2. Acute kidney injury-improving with some IV fluids. Continue IV fluids today. Urine output still very minimal. Hopefully can DC IV fluids by tomorrow morning 3. Diabetes-reasonably good control of blood sugars at this point. Did peak with a blood sugar of 200 but has been much better in the 120s since. Continue with carb consistent diet and coverage insulin 4. Cardiac-echo done in March showed stability with left ventricular function. No clear evidence congestive heart failure at this time. Continue usual meds monitor heart rate in the setting of atrial fibrillation, etcetera 5. Possible depression-continue bupropion now and upon discharge 6. Disposition-unclear when and where patient will be able to go upon discharge. Patient declined physical therapy yesterday and looks to be trying to declined today. I spent a long time discussing with him the importance of identifying the organism responsible for his infection and tailoring the antibiotics to that is specific infection. I also pointed out that he was still somewhat dehydrated his blood tests support that. Also want him to get up and be moving around to demonstrate that he was safe to go home in that is best done with physical therapy. I am not willing to send him home until we can prove that that is safe for him to do. I am hopeful that he will cooperate better later today. Time-Based Coding :: [TOTAL MINUTES] spent with patient and on the chart (including review of chart, obtaining history, exam, reviewing outside data, placing orders, documenting exam and treatment plan, and counseling patient) on [DATE]. Quality VTE Deep Vein Thrombosis/Pulmonary Embolism Present on Admission: No IH PROFEE Charge codes Subsequent inpatient/observation care: [id number]
[2024-06-09 09:11] LABS: Iron 24 ug/dL (49-181)
--- NOTE | 2024-06-09 09:17 | OT.IPNOTE ---
Pt insistent that his to assist with his need if any for OT. Pt adamantly refusing OT eval.
[2024-06-09] MEDS: MAGNESIUM OXIDE 400 MG TABLET PO (09:34)
[2024-06-09] MEDS: METOPROLOL ER 25 MG TABLET 75 MG PO (09:34)
[2024-06-09] MEDS: buPROPion XL 150 MG TAB PO (09:34)
[2024-06-09] MEDS: ASPIRIN EC 81 MG TABLET PO (09:34)
[2024-06-09] MEDS: ENOXAPARIN 40 MG/0.4 ML SYRINGE SUBCUT (09:35)
[2024-06-09] MEDS: OXYBUTYNIN 5 MG ER TAB 10 MG PO (09:35)
[2024-06-09] MEDS: PANTOPRAZOLE DR 40 MG TABLET PO (09:36)
--- NOTE | 2024-06-09 09:45 | PT.IIE ---
Current Diagnoses Urinary tract infection, site not specified (06/08/24) Surgical History (Last Updated 08/04/22 @ 11:01 by Mehrdad Olivier MD) Anesthesia History of heart bypass surgery (~2013) History of tonsillectomy S/P prostatectomy (~02/20/21) S/P TAVR (transcatheter aortic valve replacement) (~06/2022) Status post appendectomy Medical History (Last Updated 05/30/24 @ 14:00 by Mehrdad Olivier MD) Anticoagulated on warfarin Aortic stenosis Chronic atrial fibrillation Chronic renal failure, stage 3a Controlled type 2 diabetes mellitus without complication Coronary artery disease involving jamul coronary artery without angina pectoris (04/03/16) Elevated prostate specific antigen (PSA) (06/18/16) Family history of prostate cancer in father Glaucoma Mixed hyperlipidemia (04/03/16) 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 Prostate cancer Tinnitus (~1984) Physical Therapy Inpatient Evaluation/Re-Eval M1 PT/OT-IP Prior Functional Status Start: 06/08/24 16:07 Freq: NEEDED Status: Active Protocol: Document 06/09/24 09:45 AB (Rec: 06/09/24 13:11 AB [id number]) Medical Review Prior Functional Status Medical History Reviewed Yes Communication able to make needs known Mobility and Gait pt stated that he as modified independent with all mobilities and ambulation without AD but occasionally uses a hurrycane Social History Household Members spouse Living Arrangements House Number of Floors (Floors) Two Floors Number of Stairs To Enter/Railing? pt stays on main level of the house 1 step to enter Home Environment High Toilet,Walk in Shower, Bidet Home Equipment Shower Seat without Backrest, Grab Bars Near Toilet,Grab Bars In Shower Additional Social History Comment pt has a hurrycane M2 PT-IP Current Condition Start: 06/08/24 16:07 Freq: NEEDED Status: Active Protocol: Document 06/09/24 09:45 AB (Rec: 06/09/24 13:11 AB [id number]) Physical Therapy Current Condition Current Condition Evaluation Date 06/09/24 Treatment Diagnosis UTI; weakness; difficulty in walking Onset Date 06/08/24 M3 PT-IP Subjective Start: 06/08/24 16:07 Freq: NEEDED Status: Active Protocol: Document 06/09/24 09:45 AB (Rec: 06/09/24 13:11 AB [id number]) Subjective Physical Therapy Visit Type Type Initial Evaluation Visit Start Time 09:45 Visit Stop Time 10:22 Number of BAG MENDER Visits 0 Therapy Pain Assessment Location Right Knee Scale Used during mobility; pain scale nost stated Pain Management Techniques Apply Cold,Distraction, Modification of Treatment,Re- positioning M4 PT-IP Mobility and Gait Start: 06/08/24 16:07 Freq: NEEDED Status: Active Protocol: Document 06/09/24 09:45 (Rec: 06/09/24 13:11 AB [id number]) PT-Bed Mobility Assessment Supine to Sit Supine to Sit Independent,Head of Bed Elevated,Bedrails Sit to Supine Sit to Supine Standby Assistance,Head of Bed Elevated,Bedrails PT-Transfer Assessment Sit to and From Stand Sit to and from Stand Minimal Assistance,1 Person Assistance,Use of Upper Extremities Equipment Transfer Assistive Device Gait Belt,Front Wheeled Walker Orthotic/Prosthetic Devices or Brace: No Comments Mobility Comments pt supine in bed. initially refusing to do PT. educated pt on importance of mobility and agreed to get up and move some. pt uses AFO on R foot and assisted with donning. pt without shoes and stated that he wears AFO at home without shoes. completed supine to sit SBA with HOB elevated ang pt used bed rail to assist. pt directs his own care and can get easily irritated. pt completed sit to stand min a and cues. pt ambulated in room using FWW min to mod A and cues. presents with unsteady gait and tends to drag RLE. c/ o R knee pain and stated that he is guarding RLE a lot. pt with heavey UE use on FWW. pt refused to sit on the chair and sat back on EOB. completed sit to supine SBA. positioned pt in bed. call light and table place within reach. pt agreed to use FWW at home and stated that he can get one for him to use. encouraged pt to sit up for meal times on the chair and refused. stated that he puts HOB up for him to eat. Gait Assessment Gait Gait Assistance Required: Minimum Assistance,Moderate Assistance,1 Person Assist Distance (Feet) 15 Able to Maintain Weight Bearing Status Yes During Gait Assistive Devices Assistive Device Gait Belt,Front Wheeled Walker Orthotic/Prosthetic Devices or Brace: No Gait Deviations General Gait Pattern Antalgic,Decreased Stride Length,Decreased Feet Clearance,Step-to Gait Factors Limiting Gait Function Factors Limiting Gait Function Decreased Activity Tolerance, Limited Range of Motion,Pain, Poor Balance,Poor Safety Awareness PT-Balance Assessment Sitting Balance and Reactions Static Sitting Balance Ability Good Dynamic Sitting Balance Ability Good Standing Balance and Reactions Static Standing Balance Ability Fair Dynamic Standing Balance Ability Poor Device Used FWW M5 PT-IP Objective Assessments Start: 06/08/24 16:07 Freq: NEEDED Status: Active Protocol: Document 06/09/24 09:45 AB (Rec: 06/09/24 13:11 AB [id number]) Orientation Orientation/Cognition Level of Alertness Alert Orientation Name,Place,Situation Safety Awareness Decreased Safety Awareness Memory Description No Deficits Noted Gross Range of Motion Lower Extremity ROM Assessment Right Impaired Impairments R knee limited due to pain limiting movement Strength Lower Extremity Strength Assessment Right Impaired Hip 4-/5 Knee 3+/5 Ankle 1/5 Muscle Tone Muscle Tone WNL Yes M6 PT-IP Treatment Start: 06/08/24 16:07 Freq: NEEDED Status: Active Protocol: Document 06/09/24 09:45 AB (Rec: 06/09/24 13:11 AB [id number]) Physical Therapy Treatment Education Education Provided Safety M7 PT-IP Assessment and Plan Start: 06/08/24 16:07 Freq: NEEDED Status: Active Protocol: Document 06/09/24 09:45 AB (Rec: 06/09/24 13:11 AB [id number]) PT Summary Assessment and Plan Potential Rehabilitation Potential Fair Status of Condition at Evaluation Evolving Summary Impairments Pain,ROM,Strength,Balance, Coordination,Sensation,Tone, Cognition,Bed Mobility, Transfers,Gait,Activity Tolerance Assessment Summary pt is an 78 y/o M who is admitted for UTI. pt requiring min to mod A for ambulation using FWW with heavy UE use on FWW and unsteady gait. pt will require 24/7 assist at home and pt stated that his spouse will be able to assist him. pt requires motivation to participate and tend to direct his own care affecting safety awareness. Goals Bed Mobility Goal Independent Transfer Goal Independent,Front Wheeled Walker Gait Goal Independent,Front Wheel Walker Gait Distance 200 Other Goals up/down 1 step SBA Days to Meet Goals 10 Frequency of Treatment Frequency Of Treatment Once a Day Treatment Plan Physical Therapy Treatment Plan Bed Mobility Training,Transfer Training,Gait Training, Therapeutic Exercise,Balance Retraining,Discharge Planning, Hot or Cold Pack,Neuromuscular Re-ed,Coordination Retraining ,Manual Therapy Precautions Other Precautions falls Recommendations To Nursing Amount of Assist Needed 1 Person Assist Discharge Recommendations PT Discharge Recommendations Home with 15/03 Assist Available,Home Health,SNF Rehab,Home vs SNF Equipment Needed for Home Before FWW Discharge Transportation Needs at Discharge Private Vehicle,Wheelchair/ Cabulance
[2024-06-09 09:56] LABS: Vitamin B12 493 pg/mL (239-931)
--- NOTE | 2024-06-09 11:52 | CM.DANOTE ---
DCP Assessment Note: Pt is a 78yo male, resident [facility], is admitted for Weakness and UTI. Pt lives in a house with his , Neelam. Pt's Primary Care Provider is Dr. Mehrdad Olivier and insurance is [employer]. Reviewed chart and team rounds for pt's medical status and initial discharge needs. DCP met w/patient at bedside; introduced self and role. Patient was found in bed, alert and oriented, cooperative with assessment. Pt confirmed living situation and good support in . Pt expressed preference in returning home as soon as possible but expressed it would be most beneficial if pt goes to SNF Rehab before returning home. Pt has a hx of working with [facility], no SNF hx. Pt only agreeable to recommendations of Dr. Olivier. Pt worked with PT (pending evaluation), refused to work with OT at this time. Plan: Awaiting PT/OT evaluations and recommendation, anticipating SNF recommendation after discussion with provider. CM team will follow closely for coordination of discharge plans. DIANE Lay Discharge Planning/Care Management Discharge Assessment Start: 06/09/24 11:49 Freq: Status: Active Protocol: Document 06/09/24 11:49 MW (Rec: 06/09/24 11:52 MW [id number]) Discharge Planning Assessment Assigned Hse Specialist AUGUSTO Zaragoza DPOA/Assigned Designee Name Neelam Luna, Spouse Contact Information [phone] Advance Directives? Yes Advance Directives on File No History Provided By Patient,Medical Record Has Patient been admitted in last 30 No days? Prior Living Arrangements House Household Members spouse Type of transporation used prior to Relies on Others admit Independent with ADL's Yes Is patient alert and oriented? Yes Caregiver for Another No DME Already Rented / Owned FWW / Walker,Cane Discharge Plan Care Home Facility Transportation Arrangement Family Referrals Initiated Care Home Medicare Choice List Provided Yes Medicare choice list reviewed on family electronic tablet with SNF/HH Preference [facility], pt and family considering another SNF as a second option. Has Agency SNF been contacted Yes Whiteboard Updated in Patient Room with Yes name and ext. # of Hse Specialist Comment [phone] Review Status In Process Please Provide Date Initial DC 06/09/24 Assessment Was Performed Next Review Type Continued Stay Review
[2024-06-09] MEDS: cefTRIAXone 2,000 MG in SODIUM CHLORIDE 0.9% 100 ML 200 MG IV (18:05)
[2024-06-09] MEDS: METOPROLOL ER 50 MG TABLET PO (18:05)
[2024-06-10] VITALS (15 sets, daily range): BP systolic 132–163; BP diastolic 42–70; PULSE 68–93; RESP 16–22; TEMP 36.3–37.2; O2SAT 91–99
[2024-06-10] MEDS: SODIUM CHLORIDE 0.9% 1,000 ML 125 ML IV (01:47)
[2024-06-10 05:20] LABS: BUN Creatinine Ratio 16.1 (6-22); Blood Urea Nitrogen 20 mg/dL (9-20); Calcium 8.3 mg/dL (8.4-10.2); Carbon Dioxide 21 mmol/L (22-32); Chloride 107 mmol/L (98-107); Estimated Glomerular Filt Rate 59 mL/min (>60); Glucose 135 mg/dL (80-110); HEMOLYSIS < 15 (0-50); Potassium 3.9 mmol/L (3.4-5.1); Sodium 133 mmol/L (137-145)
[2024-06-10 06:45] LABS: Add Manual Diff / Slide Review NO; Basophils Absolute Auto 0 /uL (0-100); Basophils Percent Auto 0.6 % (0-2); Eosinophils Absolute Auto 100 /uL (0-450); Eosinophils Percent Auto 1.5 % (2-4); Hematocrit 21.5 % (41-53); Hemoglobin 7.3 g/dL (13.5-17.5); Lymphocytes Absolute Auto 600 /uL (1100-4500); Lymphocytes Percent Auto 8.1 % (25-40); Mean Corpuscular Hemoglobin 31.1 PG (26-34); Mean Corpuscular Volume 91.5 fL (80-100); Monocytes Absolute Auto 500 /uL (0-900); Neutrophils Absolute Auto 6200 /uL (1500-7000); Neutrophils Percent Auto 82.8 % (50-75); Platelet Count 227 X10^3/uL (150-400); Red Blood Cell Count 2.34 X10^6/uL (4.5-5.9); White Blood Cell Count 7.5 X10^3/uL (4.5-11.0)
[2024-06-10] MEDS: PANTOPRAZOLE DR 40 MG TABLET PO (06:55)
[2024-06-10] MEDS: METOPROLOL ER 25 MG TABLET 75 MG PO (08:41)
[2024-06-10] MEDS: OXYBUTYNIN 5 MG ER TAB 10 MG PO (08:42)
[2024-06-10] MEDS: MAGNESIUM OXIDE 400 MG TABLET PO (08:43)
[2024-06-10] MEDS: ASPIRIN EC 81 MG TABLET PO (08:43)
--- NOTE | 2024-06-10 10:17 | P.PN_ITS ---
Subjective Subjective Date Patient Seen: 06/10/24 Time Patient Seen: 10:17 Interval history: Patient with reasonably uneventful day yesterday. Did get up with physical therapy. [place] to require significant assistance at home but probably would be safe to go home if family is able to provide assistance 15/03 Urine growing Klebsiella which is sensitive to current antibiotics Lab work shows renal function returned to normal. Remains anemic but unchanged from yesterday. No evidence active bleeding. No upper GI symptoms. Hemodynamically stable. Blood sugar well controlled Exam Vital Signs (past 8 hours): - 06/10/24 04:28 06/10/24 08:00 06/10/24 08:41 Temperature 97.4 F L 98.0 F Pulse Rate 86 86 85 Respiratory Rate 16 17 Blood Pressure 140/58 L 146/70 H 146/70 H Pulse Oximetry 96 97 Oxygen Flow Rate 0 Oxygen Delivery Method Room Air Oxygen Flow Rate 0 Objective Labs 06/10/24 06:30 06/10/24 04:54 Labs: Laboratory Results - last 24 hr 06/10/24 06/10/24 04:54 06:30 WBC 7.5 RBC 2.34 L Hgb 7.3 L Hct 21.5 L MCV 91.5 MCH 31.1 MCHC 34.0 RDW 16.0 H Plt Count 227 Neut % (Auto) 82.8 H Lymph % (Auto) 8.1 L [place] % (Auto) 7.0 Eos % (Auto) 1.5 L Baso % (Auto) 0.6 Neut # (Auto) 6200 Lymph # (Auto) 600 L [place] # (Auto) 500 Eos # (Auto) 100 Baso # (Auto) 0 Sodium 133 L Potassium 3.9 Chloride 107 Carbon Dioxide 21 L BUN 20 Creatinine 1.24 Estimated GFR 59 L BUN/Creatinine Ratio 16.1 Glucose 135 H Calcium 8.3 L PFSH Medical History (Updated 06/08/24 @ 14:08 by Iraida Breen MD) Chronic renal failure, stage 3a Controlled type 2 diabetes mellitus without complication Prostate cancer Anticoagulated on warfarin Family history of prostate cancer in father 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 Aortic stenosis Chronic atrial fibrillation Tinnitus (~1984) Glaucoma Elevated prostate specific antigen (PSA) (06/18/16) Mixed hyperlipidemia (04/03/16) Coronary artery disease involving [place] coronary artery without angina pectoris (08/12/16) Surgical History (Updated 08/04/22 @ 11:01 by Mehrdad Olivier MD) S/P TAVR (transcatheter aortic valve replacement) (~06/2022) S/P prostatectomy (~02/20/21) Anesthesia History of heart bypass surgery (~2013) Status post appendectomy History of tonsillectomy Family History Father Prostate cancer Mother Skin cancer Heart disease Brother No problems noted. Grandfather No problems noted. Social History marital status: number of children: 2 household members: spouse Smoking Status: Former smoker alcohol intake: current caffeine: No Assessment & Plan Assessment & Plan narrative: 1. Acute complicated UTI with weakness etcetera-growing Klebsiella. Continue with current IV antibiotics which are appropriate until felt to be stable to switch to oral antibiotics based on sensitivities 2. Acute kidney injury-seems to have resolved his acute kidney injury. I think we can probably DC IV fluids at this time 3. Diabetes-adequate control of blood sugar for now. No changes in treatment 4. Cardiac-echo done in March showed stability with left ventricular function. No clear evidence congestive heart failure at this time. Continue usual meds monitor heart rate in the setting of atrial fibrillation, etcetera 5. Possible depression-discontinue bupropion yesterday after consultation with patient's spouse reminds me that he tried this previously and had no beneficial effect. After discussion we elected to keep him off any antidepressant for now and hoping that we can help him physically feel better which will reverse his declining mental health 6. Anemia-patient was normocytic anemia without evidence of active bleeding. Patient can certainly have an element of anemia of chronic disease he certainly also has the prostate cancer. At this point given his known coronary disease I think he would benefit from transfusion given that his hemoglobin is in the 7.4 range. Discussed with patient and spouse possibility doing outpatient GI workup, he certainly would not tolerate doing that as an inpatient and does not appear to be urgent given lack of evidence of large volume bleeding etcetera. Given lack of evidence of obvious bleeding I think that is okay to continue with Lovenox for VTE prophylaxis at this time. 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 Disposition-patient did participate with physical therapy yesterday in it does not seem impossible for him to go home safely. I would like to keep him here in the hospital today and transfuse him and see if that will perhaps gave him some more strength and stability. Patient is super eager to be discharged from the hospital and go home JEFFREY. However after long discussion I think he finally accepted the fact that I think he would benefit from transfusion he will feel better etcetera. Pointed out that he needs to be safe to go home before we can discharge him from the hospital. Time-Based Coding :: [TOTAL MINUTES] spent with patient and on the chart (including review of chart, obtaining history, exam, reviewing outside data, placing orders, documenting exam and treatment plan, and counseling patient) on [DATE]. Quality VTE Deep Vein Thrombosis/Pulmonary Embolism Present on Admission: No IH PROFEE Charge codes Subsequent inpatient/observation care: [id number]
[2024-06-10] MEDS: INSULIN LISPRO 100 UNIT/ML 3ML VIAL SUBCUT (12:38)
--- NOTE | 2024-06-10 14:35 | PC.NURSE ---
Addendum entered by Nelly Lowe R.N. 06/10/24 18:23: Receiving second unit PRBC w/o incidence Call light w/in reach, pt calls appropriately for needs. Continue w/plan of care. Original Note: Receiving PRBC tolerating w/o incidence at this time Assisted to bathroom SL RAC intact/patent Tele remains A-fib via ICU staff. CBG 148 & 246 covered as per orders Call light w/in reach, bed alarm on for pt safety. Continue w/plan of care.
--- NOTE | 2024-06-10 14:35 | CM.DPC ---
Addendum entered by AUGUSTO Torres 06/10/24 14:45: ADD: Referral also sent to [facility] as b/u. Original Note: DCP SNF Planning: Per MD and spouse, recommendation is SNF and they feel pt would benefit from SNF before safe return home. Pt H&H low today and getting a unit of blood and not yet stable for discharge home today. Per PT, recommending SNF before return home. SW met bedside with pt and spouse and spouse requested to meet outside of the room and pt confirms he is agreeable with this. Spouse confirms that she spoke to MD and feels pt cannot d/c directly home at discharge and spouse feels SNF needed. SW discussed that if pt refuses, then staff cannot force him to SNF and she acknowledges understanding and states she will let pt know that she cannot assist him at d/c and SNF needed. Preference is 1) [facility] but spouse aware that they are currently full 2) [facility]. SW also explained need to get insurance auth for SNF approval. [facility] admission confirms that they likely will not have a male bed until Wed this week. SW called [facility] admissions and confirmed that currently they are not contracted with pt's Linnette LOUIE. SW made new referral to [facility] since spouse b/u preference was in [facility], they are reviewing. PASRR done. Plan: SW to follow closely for [facility] and [facility] review to confirm if one can initiate auth and accept. AUGUSTO Torres
--- NOTE | 2024-06-10 14:50 | PT-IP ANOTE ---
Pt is not appropriate for PT at this time. He is receiving a unit of blood at this time.
[2024-06-10] MEDS: METOPROLOL ER 50 MG TABLET PO (17:12)
[2024-06-10] MEDS: cefTRIAXone 2,000 MG in SODIUM CHLORIDE 0.9% 100 ML 200 MG IV (20:10)
[2024-06-11] VITALS (9 sets, daily range): BP systolic 144–166; BP diastolic 58–78; PULSE 85–110; RESP 17–20; TEMP 36.1–36.4; O2SAT 97–98
[2024-06-11 04:48] LABS: Hematocrit 27.3 % (41-53); Hemoglobin 9.5 g/dL (13.5-17.5)
[2024-06-11 05:10] LABS: BUN Creatinine Ratio 12.6 (6-22); Blood Urea Nitrogen 15 mg/dL (9-20); Calcium 8.6 mg/dL (8.4-10.2); Carbon Dioxide 21 mmol/L (22-32); Chloride 108 mmol/L (98-107); Estimated Glomerular Filt Rate > 60 mL/min (>60); Glucose 157 mg/dL (80-110); HEMOLYSIS < 15 (0-50); Potassium 4.2 mmol/L (3.4-5.1); Sodium 133 mmol/L (137-145)
[2024-06-11] MEDS: PANTOPRAZOLE DR 40 MG TABLET PO (06:06)
[2024-06-11] MEDS: INSULIN LISPRO 100 UNIT/ML 3ML VIAL SUBCUT ×3 (08:43→21:17)
[2024-06-11] MEDS: ENOXAPARIN 40 MG/0.4 ML SYRINGE SUBCUT (08:45)
[2024-06-11] MEDS: METOPROLOL ER 25 MG TABLET 75 MG PO (08:45)
[2024-06-11] MEDS: OXYBUTYNIN 5 MG ER TAB 10 MG PO (08:45)
[2024-06-11] MEDS: MAGNESIUM OXIDE 400 MG TABLET PO (08:45)
[2024-06-11] MEDS: ASPIRIN EC 81 MG TABLET PO (08:45)
--- NOTE | 2024-06-11 09:32 | P.DS_ITS ---
History of Present Illness History of Present Illness Date Patient Seen: 06/14/24 Time Patient Seen: 06:44 Chief complaint: Weakness Narrative: 78-year-old male with multiple medical problems recently struggling to recover from TAVR who apparently he has been increasingly weak and in bed really refusing to eat or drink much of anything per spouse. There were apparently been no fever or chills. Denies any back pain. Denies any urinary symptoms either Patient presented to the ER in this situation, evaluation in the ER revealed a leukocytosis with left shifts with 18,000 white count initially, positive UA, evidence of acute kidney injury with a creatinine now 1.8. Hemodynamics were stable otherwise however including heart rate and blood pressure. Oxygen saturation normal Chest x-ray unremarkable, CT scan demonstrates bilateral perinephric stranding left greater than right and other changes consistent in the ureter and bladder wall with an infectious etiology Patient received boluses of IV fluids as well as dose of broad-spectrum parental antibiotics in the emergency department and was admitted for further treatment Discharge Providers Provider Date of admission: 06/08/24 14:12 Discharge Date: 06/14/24 Primary care physician: Mehrdad Olivier MD Consults: 06/08/24 14:58 Consult to Occupational Therapy Evaluate & Treat Comment: Physician Instructions: Evaluate and treat Consult to Physical Therapy Evaluate & Treat Comment: Physician Instructions: Evaluate and Treat Discharge provider: Mehrdad Olivier MD Summary Hospital Course Discharge Diagnosis: 1. Complicated urinary tract infection with Klebsiella oxytocia 2. Systemic inflammatory response syndrome resolved 3. Acute kidney injury, resolved 4. Acute anemia of uncertain etiology, likely chronic disease 5. Type 2 diabetes, controlled 6. Hyperlipidemia 7. Prostate cancer 8. Coronary artery disease, not active 9. Chronic atrial fibrillation Hospital Course: Patient was admitted as above with generalized weakness etcetera. He was urine cultures eventually grew Klebsiella species which was sensitive to the initial antibiotic. Patient was much improved after 24 hours and actually quite anxious to go home. Patient was continued on parental antibiotic therapy until the morning of discharge. He was discharged on appropriate oral antibiotic therapy based on sensitivities of the organism we grew Patient's diabetes was adequately controlled with coverage insulin. He will resume his home meds upon discharge Patient's atrial fibrillation was rate controlled during this hospitalization Patient was somewhat hypertensive and minimally tachycardic at times during this hospitalization. His metoprolol dose was slightly increased to 75 mg succinate version b.i.d. and will need to be followed after discharge Patient's acute kidney injury resolved with the administration of IV fluids Patient was found to be somewhat acutely anemic with hemoglobin at 7.3. No clear evidence of blood loss no evidence of GI blood loss etcetera. Patient was multiple potential etiologies to lead to anemia of chronic disease. Patient was not willing to stay in the hospital for additional evaluation. He was transfused red blood cells given his known coronary disease in effort to increase his stamina energy level at home. Further discussion regarding need for continued workup as an outpatient will be discussed with him at his outpatient follow-up Patient was evaluated by Physical therapy. He was felt to potentially require group home placement. Discussion was held with patient and family. Apparently resources are not available at this time to provide the care he needs at home, and in addition he has upcoming significant dental procedure, and altogether it was felt as though he would best be served by a short stay in group home facility to allow for more complete recovery of strength and independence before returning him home. Therefore plans were made to discharge him to group home. He will complete a course of antibiotic therapy as above Status at Discharge Cognitive/behavioral status at discharge: at baseline, oriented Functional status at discharge: uses cane/walker Overall status at discharge: patient is progressing back to baseline Time Spent with Patient Time spent: Greater than 30 minutes Exam Vital Signs (past 8 hours): - 06/11/24 04:00 06/11/24 07:00 06/11/24 08:00 Temperature 97.2 F L 97.6 F Pulse Rate 89 101 H Respiratory Rate 20 18 Blood Pressure 166/78 H 144/66 H Pulse Oximetry 98 97 Oxygen Delivery Method Room Air Oxygen Flow Rate 0 0 06/11/24 08:45 Temperature Pulse Rate 101 H Respiratory Rate Blood Pressure 144/66 H Pulse Oximetry Oxygen Delivery Method Oxygen Flow Rate Oxygen Delivery Method Room Air Oxygen Flow Rate 0 Objective Labs 06/11/24 04:18 06/11/24 04:18 Labs: Laboratory Results - last 24 hr 06/10/24 06/11/24 11:46 04:18 Hgb 9.5 L Hct 27.3 L Sodium 133 L Potassium 4.2 Chloride 108 H Carbon Dioxide 21 L BUN 15 Creatinine 1.19 Estimated GFR > 60 BUN/Creatinine Ratio 12.6 Glucose 157 H Calcium 8.6 Blood Type O Positive Antibody Screen Negative Crossmatch See Detail PFSH Medical History Chronic renal failure, stage 3a Controlled type 2 diabetes mellitus without complication Prostate cancer Anticoagulated on warfarin Family history of prostate cancer in father 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 Aortic stenosis Chronic atrial fibrillation Tinnitus (~1984) Glaucoma Elevated prostate specific antigen (PSA) (06/18/16) Mixed hyperlipidemia (04/03/16) Coronary artery disease involving [place] coronary artery without angina pectoris (04/03/16) Surgical History S/P TAVR (transcatheter aortic valve replacement) (~06/2022) S/P prostatectomy (~02/20/21) Anesthesia History of heart bypass surgery (~2013) Status post appendectomy History of tonsillectomy Family History Father Prostate cancer Mother Skin cancer Heart disease Brother No problems noted. Grandfather No problems noted. Social History marital status: number of children: 2 household members: spouse Smoking Status: Former smoker alcohol intake: current caffeine: No Discharge Assessment & Plan Assessment and Plan Plan of Treatment: Discharge to group home on a 10 day course of oral antibiotics for Klebsiella, specifically ciprofloxacin Continue all usual pre-hospital medications, with the exception increase dose metoprolol Follow-up with PCP following discharge from group home Discharge Plan Discharge Plan Patient Disposition: SNF Consult as needed: Dental, Hearing, Mental health, Podiatry and Vision Discharge orders & Medications Prescriptions: New magnesium oxide 400 mg (241.3 mg magnesium) Tablet 400 mg PO DAILY Qty: 90 0RF ciprofloxacin HCl 500 mg tablet 500 mg PO BID 10 Days Qty: 20 0RF Continued (DME) Disabled Parking See Rx Instructions .ROUTE .MEDSUPPLY Qty: 1 0RF Rx Instructions: Patient qualifies for disabled parking as per the attached form. digoxin 125 mcg (0.125 mg) tablet 125 mcg PO DAILY Qty: 90 3RF glipizide 5 mg tablet extended release 24hr 5 mg PO BID Qty: 180 3RF tolterodine 4 mg capsule,extended release 24hr 4 mg PO DAILY Qty: 90 3RF vitamin B complex [Vitamins B Complex] Capsule 1 cap PO DAILY aspirin [Adult Low Dose Aspirin] 81 mg tablet,delayed release (DR/EC) 81 mg PO DAILY melatonin 3 mg capsule 3 mg PO BEDTIME PRN (Reason: Insomnia) Changed metoprolol succinate 50 mg tablet extended release 24 hr 100 mg PO BID Qty: 30 0RF Rx Instructions: 75mg in AM, 50mg in PM orally; Follow up/Referrals: Mehrdad Olivier MD [Primary Care Provider] - 1 Week Discharge Health Status Multidrug resistant organism: No MDRO Diet/Activity/Treatments Diet: Diet as Tolerated and Carb-consistent/Diabetic Visit Report/Discharge Packet Stand Alone Forms: Patient Portal/API Discharge Data Primary Care Provider: Mehrdad Olivier Quality VTE Deep Vein Thrombosis/Pulmonary Embolism Present on Admission: No IH PROFEE Charge Codes Discharge inpatient/observation: 07042
--- NOTE | 2024-06-11 10:50 | P.PN_ITS ---
Subjective Subjective Date Patient Seen: 06/11/24 Time Patient Seen: 10:25 Interval history: Patient with uneventful day yesterday Did not do physical therapy as he was receiving a blood transfusion. Had declined occupational therapy Spoke with spouse who is concerned about him coming home. He would require a great deal of assistance and she was just not sure she can continue to provide that without some sort of break. Labs this morning show improvement in his hemoglobin hematocrit. Renal function remains normal Exam Vital Signs (past 8 hours): - 06/11/24 04:00 06/11/24 07:00 06/11/24 08:00 Temperature 97.2 F L 97.6 F Pulse Rate 89 101 H Respiratory Rate 20 18 Blood Pressure 166/78 H 144/66 H Pulse Oximetry 98 97 Oxygen Delivery Method Room Air Oxygen Flow Rate 0 0 06/11/24 08:45 06/11/24 10:16 Temperature 97.6 F Pulse Rate 101 H 101 H Respiratory Rate 17 Blood Pressure 144/66 H 144/66 H Pulse Oximetry 97 Oxygen Delivery Method Oxygen Flow Rate 0 Oxygen Delivery Method Room Air Oxygen Flow Rate 0 Objective Labs 06/11/24 04:18 06/11/24 04:18 Labs: Laboratory Results - last 24 hr 06/10/24 06/11/24 11:46 04:18 Hgb 9.5 L Hct 27.3 L Sodium 133 L Potassium 4.2 Chloride 108 H Carbon Dioxide 21 L BUN 15 Creatinine 1.19 Estimated GFR > 60 BUN/Creatinine Ratio 12.6 Glucose 157 H Calcium 8.6 Blood Type O Positive Antibody Screen Negative Crossmatch See Detail [facility] Medical History Chronic renal failure, stage 3a Controlled type 2 diabetes mellitus without complication Prostate cancer Anticoagulated on warfarin Family history of prostate cancer in father 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 Aortic stenosis Chronic atrial fibrillation Tinnitus (~1984) Glaucoma Elevated prostate specific antigen (PSA) (06/18/16) Mixed hyperlipidemia (04/03/16) Coronary artery disease involving [place] coronary artery without angina pectoris (04/03/16) Surgical History S/P TAVR (transcatheter aortic valve replacement) (~06/2022) S/P prostatectomy (~02/20/21) Anesthesia History of heart bypass surgery (~2013) Status post appendectomy History of tonsillectomy Family History Father Prostate cancer Mother Skin cancer Heart disease Brother No problems noted. Grandfather No problems noted. Social History marital status: number of children: 2 household members: spouse Smoking Status: Former smoker alcohol intake: current caffeine: No Assessment & Plan Assessment & Plan narrative: 1. Acute complicated UTI with weakness etcetera-growing Klebsiella. Continue with current IV antibiotics which are appropriate until felt to be stable to switch to oral antibiotics based on sensitivities, probably at discharge 2. Acute kidney injury-seems to have resolved his acute kidney injury. IV fluids have been discontinued 3. Diabetes-adequate control of blood sugar for now. No changes in treatment. Plan to resume usual meds upon discharge 4. Cardiac-echo done in March showed stability with left ventricular function. No clear evidence congestive heart failure at this time. Continue usual meds monitor heart rate in the setting of atrial fibrillation, etcetera 5. Possible depression-continue to treat other medical issues hoping that this will improve his mental health. Patient not eager to start antidepressant at this time 6. Anemia-improved after transfusion. Patient not really willing to participate in further evaluation. Will continue this conversation as an outpatient. No evidence of active large volume bleeding so I think this is an appropriate strategy 6. Disposition-patient I think he would benefit from [facility] placement to allow him to recover more fully before returning home. Currently he is requiring maximum resources at home and while he maybe better after treatment of his infection and transfusion to correct his anemia I still believe he would benefit from additional time in rehabilitation. Will have him seen by skilled therapies again today an emphasize importance to the patient have cooperation to assess his needs. In addition patient has an upcoming dental procedure basically to remove his teeth in preparation for alternatives. This is certainly going to set him back to some degree I am would like him to be much more recovered before undergoing that procedure Hopefully however he can be discharged to [facility] within the next 24 hours Time-Based Coding :: [TOTAL MINUTES] spent with patient and on the chart (including review of chart, obtaining history, exam, reviewing outside data, placing orders, documenting exam and treatment plan, and counseling patient) on [DATE]. Quality VTE Deep Vein Thrombosis/Pulmonary Embolism Present on Admission: No IH PROFEE Charge codes Subsequent inpatient/observation care: 30988
--- NOTE | 2024-06-11 13:16 | PT.IPTN ---
Current Diagnoses Urinary tract infection, site not specified (06/08/24) Physical Therapy Treatment Note M2 PT-IP Current Condition Start: 06/08/24 16:07 Freq: NEEDED Status: Active Protocol: Document 06/09/24 09:45 AB (Rec: 06/09/24 13:11 AB [id number]) Physical Therapy Current Condition Current Condition Evaluation Date 06/09/24 Treatment Diagnosis UTI; weakness; difficulty in walking Onset Date 06/08/24 M3 PT-IP Subjective Start: 06/08/24 16:07 Freq: NEEDED Status: Active Protocol: Document 06/11/24 12:55 KS (Rec: 06/11/24 13:25 KS [id number]) Subjective Physical Therapy Visit Type Type Treatment Note Visit Start Time 12:55 Visit Stop Time 13:16 Number of [employer]ORE [employer] Visits 1 Therapy Pain Assessment Location Right Knee Scale Used during mobility; pain scale not stated Pain Management Techniques Apply Cold,Distraction, Modification of Treatment,Re- positioning M4 PT-IP Mobility and Gait Start: 06/08/24 16:07 Freq: NEEDED Status: Active Protocol: Document 06/11/24 12:55 KS (Rec: 06/11/24 13:25 KS [id number]) PT-Bed Mobility Assessment Supine to Sit Supine to Sit Contact Guard Assistance,1 Person Assistance Sit to Supine Sit to Supine Standby Assistance,Head of Bed Elevated,Bedrails Scooting Scooting to Edge of Bed Standby Assistance PT-Transfer Assessment Sit to and From Stand Sit to and from Stand Minimal Assistance,1 Person Assistance,Use of Upper Extremities Equipment Transfer Assistive Device Gait Belt,Front Wheeled Walker Transfers Transfer Destination Bed Transfer Technique ambulated Transfer Ability Level of Assist Minimal Assistance Comments Mobility Comments Pt in bed, agreeable to work w / PT. CGA forsup<>Sit, Min A for sit<>stand w/ FWW. Pt ambulated ~20 ft to bathroom and 20 ft back afterwards using FWW w/ CGA. Cues for keeping FWW closer to self. Pt c/o knee pain but states it is better than yesterday. Returned to bed w/ all needs in reach. Gait Assessment Gait Gait Assistance Required: Minimum Assistance,1 Person Assist Distance (Feet) 20 Able to Maintain Weight Bearing Status Yes During Gait Assistive Devices Assistive Device Gait Belt,Front Wheeled Walker Orthotic/Prosthetic Devices or Brace: No Gait Deviations General Gait Pattern Antalgic,Decreased Stride Length,Decreased Feet Clearance,Step-to Gait Factors Limiting Gait Function Factors Limiting Gait Function Decreased Activity Tolerance, Limited Range of Motion,Pain, Poor Balance,Poor Safety Awareness Comments Gait Comments See mobility PT-Balance Assessment Sitting Balance and Reactions Static Sitting Balance Ability Good Dynamic Sitting Balance Ability Good Standing Balance and Reactions Static Standing Balance Ability Fair Dynamic Standing Balance Ability Fair Device Used FWW M5 PT-IP Objective Assessments Start: 06/08/24 16:07 Freq: NEEDED Status: Active Protocol: Document 06/09/24 09:45 AB (Rec: 06/09/24 13:11 AB [id number]) Orientation Orientation/Cognition Level of Alertness Alert Orientation Name,Place,Situation Safety Awareness Decreased Safety Awareness Memory Description No Deficits Noted Gross Range of Motion Lower Extremity ROM Assessment Right Impaired Impairments R knee limited due to pain limiting movement Strength Lower Extremity Strength Assessment Right Impaired Hip 4-/5 Knee 3+/5 Ankle 1/5 Muscle Tone Muscle Tone WNL Yes M6 PT-IP Treatment Start: 06/08/24 16:07 Freq: NEEDED Status: Active Protocol: Document 06/11/24 12:55 KS (Rec: 06/11/24 13:25 KS [id number]) Physical Therapy Treatment Education Education Provided Safety M7 PT-IP Assessment and Plan Start: 06/08/24 16:07 Freq: NEEDED Status: Active Protocol: Document 06/11/24 12:55 KS (Rec: 06/11/24 13:25 KS [id number]) PT Summary Assessment and Plan Potential Rehabilitation Potential Fair Summary Impairments Pain,ROM,Strength,Balance, Coordination,Sensation,Tone, Cognition,Bed Mobility, Transfers,Gait,Activity Tolerance Progress Towards Goals Slow Progress due to Activity Tolerance Assessment Summary Pt continues to require Min A for ambulation w/ FWW. Limited to short distances due to quick approach to fatigue. Relies heavily on BUE throughout ambulation. Decreased safety awareness and needs cues for appropriate use of FWW. Pt open to going to SNF rehab which may be most appropriate at this time. He will at least need HHPT and OT and 15/03 assist if he does go home. Goals Bed Mobility Goal Independent Transfer Goal Independent,Front Wheeled Walker Gait Goal Independent,Front Wheel Walker Gait Distance 200 Other Goals up/down 1 step SBA Days to Meet Goals 10 Frequency of Treatment Frequency Of Treatment Once a Day Treatment Plan Physical Therapy Treatment Plan Bed Mobility Training,Transfer Training,Gait Training, Therapeutic Exercise,Balance Retraining,Discharge Planning, Hot or Cold Pack,Neuromuscular Re-ed,Coordination Retraining ,Manual Therapy Precautions Other Precautions falls Recommendations To Nursing Amount of Assist Needed 1 Person Assist Discharge Recommendations PT Discharge Recommendations Home with 15/03 Assist Available,Home Health,SNF Rehab,Home vs SNF Equipment Needed for Home Before FWW Discharge Transportation Needs at Discharge Private Vehicle,Wheelchair/ Cabulance
--- NOTE | 2024-06-11 15:44 | CM.DPC ---
Patient spouse requested to speak with CM, spoke with patient and spouse briefly at bedside and then stepped out with spouse, per patient request as he had a friend visiting. Patient is reluctant but now agreeable to SNF. Reviewed previous notes and referrals have been made, pending acceptance and auth, relayed this information again to the spouse. She states she won't be at the hospital tomorrow and would like CM to call with an update. The patient is expected to d/c Wednesday if approved and bed available. AUGUSTO Naranjo
[2024-06-11] MEDS: METOPROLOL ER 50 MG TABLET PO (17:14)
--- NOTE | 2024-06-11 17:47 | PC.NURSE ---
Informed by ICU pt had 11 beat run of Vtach, Vitals stable, provider notified. no new orders.
[2024-06-11] MEDS: cefTRIAXone 2,000 MG in SODIUM CHLORIDE 0.9% 100 ML 200 MG IV (18:05)
[2024-06-12] VITALS (7 sets, daily range): BP systolic 153–172; BP diastolic 49–76; PULSE 62–90; RESP 18–24; TEMP 35.9–36.7; O2SAT 97–100
[2024-06-12] MEDS: PANTOPRAZOLE DR 40 MG TABLET PO (06:22)
[2024-06-12] MEDS: ASPIRIN EC 81 MG TABLET PO (08:25)
[2024-06-12] MEDS: METOPROLOL ER 25 MG TABLET 75 MG PO ×2 (08:25→20:35)
[2024-06-12] MEDS: OXYBUTYNIN 5 MG ER TAB 10 MG PO (08:25)
[2024-06-12] MEDS: ENOXAPARIN 40 MG/0.4 ML SYRINGE SUBCUT (08:25)
[2024-06-12] MEDS: MAGNESIUM OXIDE 400 MG TABLET PO (08:25)
[2024-06-12] MEDS: INSULIN LISPRO 100 UNIT/ML 3ML VIAL SUBCUT ×3 (08:26→17:11)
--- NOTE | 2024-06-12 11:36 | P.PN_ITS ---
Subjective Subjective Date Patient Seen: 06/12/24 Time Patient Seen: 08:10 Interval history: Uneventful day yesterday Planning for discharge to long term but still waiting for approval from insurance and an accepting facility Exam Vital Signs (past 8 hours): - 06/12/24 08:25 06/12/24 09:00 Temperature 96.6 F L Pulse Rate 86 86 Respiratory Rate 20 Blood Pressure 165/76 H 165/75 H Pulse Oximetry 97 Oxygen Flow Rate 0 Oxygen Delivery Method Room Air Oxygen Flow Rate 0 Objective Labs 06/11/24 04:18 06/11/24 04:18 [facility] Medical History Chronic renal failure, stage 3a Controlled type 2 diabetes mellitus without complication Prostate cancer Anticoagulated on warfarin Family history of prostate cancer in father 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 Aortic stenosis Chronic atrial fibrillation Tinnitus (~1984) Glaucoma Elevated prostate specific antigen (PSA) (06/18/16) Mixed hyperlipidemia (04/03/16) Coronary artery disease involving [place] coronary artery without angina pectoris (04/03/16) Surgical History S/P TAVR (transcatheter aortic valve replacement) (~06/2022) S/P prostatectomy (~02/20/21) Anesthesia History of heart bypass surgery (~2013) Status post appendectomy History of tonsillectomy Family History Father Prostate cancer Mother Skin cancer Heart disease Brother No problems noted. Grandfather No problems noted. Social History marital status: number of children: 2 household members: spouse Smoking Status: Former smoker alcohol intake: current caffeine: No Assessment & Plan Assessment & Plan narrative: 1. Acute complicated UTI with weakness etcetera-growing Klebsiella. Switch to oral antibiotics today in preparation for discharge 2. Acute kidney injury-seems to have resolved his acute kidney injury. IV fluids have been discontinued 3. Diabetes-adequate control of blood sugar for now. No changes in treatment. Plan to resume usual meds upon discharge to long term 4. Cardiac-echo done in March showed stability with left ventricular function. No clear evidence congestive heart failure at this time. Continue usual meds monitor heart rate in the setting of atrial fibrillation, etcetera 5. Possible depression-continue to treat other medical issues hoping that this will improve his mental health. Patient not eager to start antidepressant at this time 6. Anemia-improved after transfusion. Patient not really willing to participate in further evaluation. Will continue this conversation as an outpatient. No evidence of active large volume bleeding so I think this is an appropriate strategy 6. Disposition-patient I think he would benefit from long term placement to allow him to recover more fully before returning home. Currently he is requiring maximum resources at home and while he maybe better after treatment of his infection and transfusion to correct his anemia I still believe he would benefit from additional time in rehabilitation. In addition patient has an upcoming dental procedure basically to remove his teeth in preparation for alternatives. This is certainly going to set him back to some degree I am would like him to be much more recovered before undergoing that procedure Hopefully however he can be discharged to long term within the next 24 hours Time-Based Coding :: [TOTAL MINUTES] spent with patient and on the chart (including review of chart, obtaining history, exam, reviewing outside data, placing orders, documenting exam and treatment plan, and counseling patient) on [DATE]. Quality VTE Deep Vein Thrombosis/Pulmonary Embolism Present on Admission: No IH PROFEE Charge codes Subsequent inpatient/observation care: 50527
--- NOTE | 2024-06-12 11:48 | OT.IP.EVAL ---
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 Prostate cancer Tinnitus (~1984) Surgical History (Last Reviewed 06/12/24 @ 07:42 by Mehrdad Olivier MD) Anesthesia History of heart bypass surgery (~2013) History of tonsillectomy S/P prostatectomy (~02/20/21) S/P TAVR (transcatheter aortic valve replacement) (~06/2022) Status post appendectomy Occupational Therapy Inpatient Evaluation/Re-Eval M1 PT/OT-IP Prior Functional Status Start: 06/08/24 16:07 Freq: NEEDED Status: Active Protocol: Document 06/12/24 15:27 CGR (Rec: 06/12/24 15:43 CGR [id number]) Medical Review Prior Functional Status Medical History Reviewed Yes Communication able to make needs known Mobility and Gait pt stated that he as modified independent with all mobilities and ambulation without AD but occasionally uses a hurrycane Activities of Daily Living and IADL's Pt states that he is IND in all ADL at baseline. Social History Household Members spouse Living Arrangements House Number of Floors (Floors) Two Floors Number of Stairs To Enter/Railing? pt stays on main level of the house 1 step to enter Home Environment High Toilet,Walk in Shower, Bidet Home Equipment Shower Seat without Backrest, Grab Bars Near Toilet,Grab Bars In Shower Additional Social History Comment pt has a hurrycane M2 OT-IP Current Condition Start: 06/12/24 15:26 Freq: Status: Active Protocol: Document 06/12/24 15:27 CGR (Rec: 06/12/24 15:43 CGR [id number]) Occupational Therapy Current Condition Current Condition Evaluation Date 06/12/24 Treatment Diagnosis UTI Diagnosis Onset Date 06/08/24 M3 OT- IP Subjective and Pain Start: 06/12/24 15:26 Freq: Status: Active Protocol: Document 06/12/24 15:27 CGR (Rec: 06/12/24 15:43 CGR [id number]) OT- Subjective Occupational Therapy Visit Type Type Initial Evaluation Visit Start Time 11:24 Visit Stop Time 11:48 Notes Partial co-treat with P.T. OT Pain Assessment Pain When Pain Assessed At Rest Pain Present Pain Present Denied Pain M4 OT- IP ADL's Start: 06/12/24 15:26 Freq: Status: Active Protocol: Document 06/12/24 15:27 CGR (Rec: 06/12/24 15:43 CGR [id number]) OT [id number] Comments OT Self-Feeding Comments not meal time OT ADL-Grooming Comments OT Grooming Comments pt declined to perform OT ADL-Oral Care Comments Oral Care Comments pt declined to perform OT ADL-Dressing General Eval Lower Body Dressing Ability Standby Assistance Areas Needing Assistance Socks Comments OT Dressing Comments seated EOB OT ADL-Toileting General Evaluation Toileting Ability Standby Assistance Areas Needing Assistance Manage Clothing Comments OT Toileting Comments seated on BSC for urination OT ADL-Bathing Comments OT Bathing Comments not performed M5 OT- IP IADL's Start: 06/12/24 15:26 Freq: Status: Active Protocol: Document 06/12/24 15:27 CGR (Rec: 06/12/24 15:43 CGR [id number]) OT-Instrumental Activities of Daily Living Deficits IADL Deficits Identified No Deficits Home Safety Awareness Awareness of Need for Assistance at Home Good Awareness Ability to Problem Solve Emergency Able to Problem Solve Situations Medication Management Medication Management No Deficits Identified Money Management Money Management No Deficits Identified Meal Preparation Meal Preparation Caregiver Provides Assist [place] Polisher Operator [place] Polisher Operator Caregiver Provides Assist Driving Driving Concerns Identified Regarding Safety 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 OT- IP Functional Cognition Start: 06/12/24 15:26 Freq: Status: Active Protocol: Document 06/12/24 15:27 CGR (Rec: 06/12/24 15:43 CGR [id number]) Cognitive Factors Limiting Selfcare Function Cognitive Ability Level of Alertness Alert Patient Orientation Name,Age,Birthday,Month,Date, Year,Day of Week,Place, Situation Attention Span Ability Capable of Focused Attention, Capable of Sustained Attention OT- Vision and Hearing OT- Hearing Assessment OT- Hearing Assessment WFL OT- Vision Assessment Visual Acuity Glasses All The Time Visual Attentiveness WFL Occular Pursuits WFL Visual Convergence WFL Vision Assessment Comments pt wears bifocals. M7 OT- IP Mobility and Balance Start: 06/12/24 15:26 Freq: Status: Active Protocol: Document 06/12/24 15:27 CGR (Rec: 06/12/24 15:43 CGR [id number]) OT- Bed Mobility Assessment Rolling Type of Rolling Roll to Right Level of Assistance Standby Assistance Supine to Sit Supine to Sit Assist Standby Assistance Sit to Supine Sit to Supine Assist Standby Assistance Scooting Scooting to Edge of Bed Standby Assistance OT-Transfer Assessment Sit to and From Stand Sit to and from Stand Minimal Assistance Transfers Transfer Ability Minimal Assistance Technique Transfer Destination Bed,Toilet Transfer Technique Stand Step Pivot Devices Transfer Assistive Devices Gait Belt,Front Wheeled Walker Comments Mobility Comments Pt needed extra time and multiple tries to get from supine to sit without using the bed rails. Pt then stood from bed and lost balance returing to sitting EOB before trying again. Pt then stood and ambulated into the bathroom. Pt needed min a off the toielt and requested to return to supine in bed. OT- Balance Assessment Sitting Balance and Reactions Static Sitting Balance Ability Good Dynamic Sitting Balance Ability Good M8 OT- IP Objective Assessments Start: 06/12/24 15:26 Freq: Status: Active Protocol: Document 06/12/24 15:27 CGR (Rec: 06/12/24 15:43 CGR [id number]) OT Gross Range of Motion Upper Extremity Range of Motion Assessment Within Functional Limits OT Strength Upper Extremity Strength Assessment Left Impaired Comments Strength Comments R arm grossly 4/5 L arm grossly 4-/5 OT- Coordination Assessment Upper Extremity Finger to Nose Test Within Functional Limits Finger Tapping Test Within Functional Limits OT-Muscle Tone Assessment Muscle Tone WNL Yes OT Sensation Assessment Edema Edema Absent M9 OT- IP Assessment and Plan Start: 06/12/24 15:26 Freq: Status: Active Protocol: Document 06/12/24 15:27 CGR (Rec: 06/12/24 15:43 CGR [id number]) OT Summary Assessment and Plan Potential Rehabilitation Potential Good Analytic Complexity at Evaluation Moderate Summary OT Impairments Balance,Functional Mobility, Grooming,Dressing,Toileting, Bathing,Toilet Transfers, Shower Transfers,Activity Tolerance Progress Towards Goals Progressing Toward Goals Assessment Summary Pt presents as a moderate complexity evaluation s/p admit for UTI. Pt states to this report writer that he is able to perform all of his ADLs, however, pt needed help with his mobility and was limited with the other ADLs he was willing to perform in todays session. Pt will benefit from SNF. Goals Grooming Goal Independent Dressing Goal Independent Toileting Goal Independent Bathing Goal Independent Toilet Transfer Goal Independent Shower Transfer Goal Independent Days to Meet Goals 10 Frequency of Treatment Other frequency 5x a week Treatment Plan OT Treatment Plan ADL Training,Functional Mobility,Patient/Family Education,Discharge Planning Other Treatment Recommendations and Next ADLs at sink, total body Treatment Focus dressing. Discharge Recommendations OT Discharge Recommendations SNF Rehab Transportation Needs at Discharge Private Vehicle,Wheelchair/ Cabulance
--- NOTE | 2024-06-12 12:10 | PT.IPTN ---
Current Diagnoses Urinary tract infection, site not specified (06/08/24) Physical Therapy Treatment Note M2 PT-IP Current Condition Start: 06/08/24 16:07 Freq: NEEDED Status: Active Protocol: Document 06/09/24 09:45 AB (Rec: 06/09/24 13:11 AB [id number]) Physical Therapy Current Condition Current Condition Evaluation Date 06/09/24 Treatment Diagnosis UTI; weakness; difficulty in walking Onset Date 06/08/24 M3 PT-IP Subjective Start: 06/08/24 16:07 Freq: NEEDED Status: Active Protocol: Document 06/12/24 11:32 MB (Rec: 06/12/24 12:10 MB [id number]) Subjective Physical Therapy Visit Type Type Treatment Note Visit Start Time 11:32 Visit Stop Time 11:42 Number of POOL CLEANER Visits 0 Physical Therapy Visit Comments Patient Comments No goal stated. Pt is agreeable to therapies. Therapy Pain Assessment Pain When Pain Assessed During Mobility Pain Present Pain Present Pain Reported Location Right Knee Scale Used Not rated M4 PT-IP Mobility and Gait Start: 06/08/24 16:07 Freq: NEEDED Status: Active Protocol: Document 06/12/24 11:32 MB (Rec: 06/12/24 12:10 MB [id number]) PT-Bed Mobility Assessment Rolling Type of Rolling Roll to Right Level of Assist Standby Assistance,1 Person Assistance Supine to Sit Supine to Sit Standby Assistance,1 Person Assistance Scooting Scooting to Edge of Bed Standby Assistance PT-Transfer Assessment Sit to and From Stand Sit to and from Stand Minimal Assistance,1 Person Assistance,Use of Upper Extremities Equipment Transfer Assistive Device Gait Belt,Front Wheeled Walker Transfers Transfer Destination Toilet Transfer Technique Ambulation Transfer Ability Level of Assist Minimal Assistance,1 Person Assistance,Use of Upper Extremities Comments Mobility Comments PT flattens bed and lowers rails and cues pt to roll to the right to get up OOB. Increased time and effort to perform. Posterior LOB with STS and pt falls back into sitting on the bed. Decreased safety awareness and increased impulsivity with mobility. Gait Assessment Gait Gait Assistance Required: Minimum Assistance,1 Person Assist Distance (Feet) 20 Able to Maintain Weight Bearing Status Yes During Gait Assistive Devices Assistive Device Gait Belt,Front Wheeled Walker Orthotic/Prosthetic Devices or Brace: No Gait Deviations General Gait Pattern Antalgic,Decreased Stride Length,Decreased Feet Clearance,Step-to Gait Factors Limiting Gait Function Factors Limiting Gait Function Decreased Activity Tolerance, Limited Range of Motion,Pain, Poor Balance,Poor Safety Awareness Comments Gait Comments Pt with muscle wasting distal RLE and foot drop and reports an old sciatic issue. He also c/o right knee pain. R foot over pronation with step-to gait. PT-Balance Assessment Sitting Balance and Reactions Static Sitting Balance Ability Good Dynamic Sitting Balance Ability Fair Standing Balance and Reactions Static Standing Balance Ability Fair Dynamic Standing Balance Ability Fair Device Used FWW M5 PT-IP Objective Assessments Start: 06/08/24 16:07 Freq: NEEDED Status: Active Protocol: Document 06/09/24 09:45 AB (Rec: 06/09/24 13:11 AB [id number]) Orientation Orientation/Cognition Level of Alertness Alert Orientation Name,Place,Situation Safety Awareness Decreased Safety Awareness Memory Description No Deficits Noted Gross Range of Motion Lower Extremity ROM Assessment Right Impaired Impairments R knee limited due to pain limiting movement Strength Lower Extremity Strength Assessment Right Impaired Hip 4-/5 Knee 3+/5 Ankle 1/5 Muscle Tone Muscle Tone WNL Yes M6 PT-IP Treatment Start: 06/08/24 16:07 Freq: NEEDED Status: Active Protocol: Document 06/12/24 11:32 MB (Rec: 06/12/24 12:10 MB [id number]) Physical Therapy Treatment Education Education Provided Safety M7 PT-IP Assessment and Plan Start: 06/08/24 16:07 Freq: NEEDED Status: Active Protocol: Document 06/12/24 11:32 MB (Rec: 06/12/24 12:10 MB [id number]) PT Summary Assessment and Plan Potential Rehabilitation Potential Fair Status of Condition at Evaluation Evolving Summary Impairments Pain,ROM,Strength,Balance, Coordination,Sensation,Tone, Cognition,Bed Mobility, Transfers,Gait,Activity Tolerance Progress Towards Goals Progressing Toward Goals Assessment Summary Pt presents with impulsivity, decreased safety awareness, right knee pain and history of right knee, ankle and foot weakness and decreased functional mobility. Pt with posterior LOB in standing and falls back onto bed with initial STS today. Recommend SNF at d/c. Goals Bed Mobility Goal Independent Transfer Goal Independent,Front Wheeled Walker Gait Goal Independent,Front Wheel Walker Gait Distance 200 Other Goals up/down 1 step SBA Days to Meet Goals 10 Frequency of Treatment Frequency Of Treatment Once a Day Treatment Plan Physical Therapy Treatment Plan Bed Mobility Training,Transfer Training,Gait Training, Therapeutic Exercise,Balance Retraining,Discharge Planning, Hot or Cold Pack,Neuromuscular Re-ed,Coordination Retraining ,Manual Therapy Precautions Other Precautions falls Recommendations To Nursing Amount of Assist Needed 1 Person Assist Discharge Recommendations PT Discharge Recommendations SNF Rehab Equipment Needed for Home Before FWW Discharge Transportation Needs at Discharge Private Vehicle,Wheelchair/ Cabulance
--- NOTE | 2024-06-12 14:26 | CM.DPC ---
DCP SNF Planning: Per MD, pt likely stable for discharge to SNF today if SNF secured and still not yet recommending home with spouse and HH. Per PT/OT, recommending SNF before home still. SW followed up on the SNF referrals from this weekend: [facility]- hesitant to accept as pt has wanted to go home [facility]- have not reviewed yet [facility]- not contracted with [employer] [facility]- willing to accept and submitted for auth but could likely take 48-72 hours. PASCUAL updated MD and he is agreeable with cancelling pt's discharge orders for today and pt to keep working with PT/OT while waiting for SNF. SW updated RN and ssn/ssbn weapons equipment operator. WILIAN completed this weekend. Plan: SW to follow closely for [employer] review for SNF auth to [facility] and to continue working with PT/OT in case he improves enough while waiting for auth for home with HH. Jennifer Dunn, OIL LABORATORY ANALYST
[2024-06-12] MEDS: levoFLOXacin 250 MG TABLET 750 MG PO (18:11)
[2024-06-13] VITALS (9 sets, daily range): BP systolic 145–168; BP diastolic 50–77; PULSE 65–90; RESP 16–18; TEMP 35.9–37; O2SAT 93–100
[2024-06-13] MEDS: PANTOPRAZOLE DR 40 MG TABLET PO (06:16)
[2024-06-13] MEDS: ENOXAPARIN 40 MG/0.4 ML SYRINGE SUBCUT (08:58)
[2024-06-13] MEDS: ASPIRIN EC 81 MG TABLET PO (08:58)
[2024-06-13] MEDS: INSULIN LISPRO 100 UNIT/ML 3ML VIAL SUBCUT ×2 (08:58→12:28)
[2024-06-13] MEDS: METOPROLOL ER 50 MG TABLET 100 MG PO ×2 (08:59→21:08)
[2024-06-13] MEDS: MAGNESIUM OXIDE 400 MG TABLET PO (08:59)
[2024-06-13] MEDS: OXYBUTYNIN 5 MG ER TAB 10 MG PO (08:59)
--- NOTE | 2024-06-13 09:08 | OT.IP.TRT ---
Current Diagnoses Urinary tract infection, site not specified (06/08/24) Occupational Therapy Treatment Note M2 OT-IP Current Condition Start: 06/12/24 15:26 Freq: Status: Active Protocol: Document 06/12/24 15:27 CGR (Rec: 06/12/24 15:43 CGR [id number]) Occupational Therapy Current Condition Current Condition Evaluation Date 06/12/24 Treatment Diagnosis UTI Diagnosis Onset Date 06/08/24 M3 OT- IP Subjective and Pain Start: 06/12/24 15:26 Freq: Status: Active Protocol: Document 06/13/24 09:09 [facility] (Rec: 06/13/24 09:13 [facility] [id number]) OT- Subjective Occupational Therapy Visit Type Type Treatment Note Visit Start Time 09:00 Visit Stop Time 09:08 Occupational Therapy Visit Comments Patient Comments Pt not wanting to shower and states already just used the toilet earlier. Pt agreed to go over energy conservation techniques. Patient/Caregiver Goals To get better. OT Pain Assessment Pain When Pain Assessed At Rest Pain Present Pain Present Denied Pain M4 OT- IP ADL's Start: 06/12/24 15:26 Freq: Status: Active Protocol: Document 06/12/24 15:27 CGR (Rec: 06/12/24 15:43 CGR [id number]) OT [id number] Comments OT Self-Feeding Comments not meal time OT ADL-Grooming Comments OT Grooming Comments pt declined to perform OT ADL-Oral Care Comments Oral Care Comments pt declined to perform OT ADL-Dressing General Eval Lower Body Dressing Ability Standby Assistance Areas Needing Assistance Socks Comments OT Dressing Comments seated EOB OT ADL-Toileting General Evaluation Toileting Ability Standby Assistance Areas Needing Assistance Manage Clothing Comments OT Toileting Comments seated on BSC for urination OT ADL-Bathing Comments OT Bathing Comments not performed M5 OT- IP IADL's Start: 06/12/24 15:26 Freq: Status: Active Protocol: Document 06/12/24 15:27 CGR (Rec: 06/12/24 15:43 CGR [id number]) OT-Instrumental Activities of Daily Living Deficits IADL Deficits Identified No Deficits Home Safety Awareness Awareness of Need for Assistance at Home Good Awareness Ability to Problem Solve Emergency Able to Problem Solve Situations Medication Management Medication Management No Deficits Identified Money Management Money Management No Deficits Identified Meal Preparation Meal Preparation Caregiver Provides Assist Glass Installer Glass Installer Caregiver Provides Assist Driving Driving Concerns Identified Regarding Safety 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 ALso able to go over what items to bring for skilled rehab. Pt insists that his is taking care of everything. M7 OT- IP Mobility and Balance Start: 06/12/24 15:26 Freq: Status: Active Protocol: Document 06/12/24 15:27 CGR (Rec: 06/12/24 15:43 CGR [id number]) OT- Bed Mobility Assessment Rolling Type of Rolling Roll to Right Level of Assistance Standby Assistance Supine to Sit Supine to Sit Assist Standby Assistance Sit to Supine Sit to Supine Assist Standby Assistance Scooting Scooting to Edge of Bed Standby Assistance OT-Transfer Assessment Sit to and From Stand Sit to and from Stand Minimal Assistance Transfers Transfer Ability Minimal Assistance Technique Transfer Destination Bed,Toilet Transfer Technique Stand Step Pivot Devices Transfer Assistive Devices Gait Belt,Front Wheeled Walker Comments Mobility Comments Pt needed extra time and multiple tries to get from supine to sit without using the bed rails. Pt then stood from bed and lost balance returing to sitting EOB before trying again. Pt then stood and ambulated into the bathroom. Pt needed min a off the toielt and requested to return to supine in bed. OT- Balance Assessment Sitting Balance and Reactions Static Sitting Balance Ability Good Dynamic Sitting Balance Ability Good M8 OT- IP Objective Assessments Start: 06/12/24 15:26 Freq: Status: Active Protocol: Document 06/12/24 15:27 CGR (Rec: 06/12/24 15:43 CGR [id number]) OT Gross Range of Motion Upper Extremity Range of Motion Assessment Within Functional Limits OT Strength Upper Extremity Strength Assessment Left Impaired Comments Strength Comments R arm grossly 4/5 L arm grossly 4-/5 OT- Coordination Assessment Upper Extremity Finger to Nose Test Within Functional Limits Finger Tapping Test Within Functional Limits OT-Muscle Tone Assessment Muscle Tone WNL Yes OT Sensation Assessment Edema Edema Absent M9 OT- IP Assessment and Plan Start: 06/12/24 15:26 Freq: Status: Active Protocol: Document 06/13/24 09:09 [facility] (Rec: 06/13/24 09:13 [facility] [id number]) OT Summary Assessment and Plan Potential Rehabilitation Potential Good Analytic Complexity at Evaluation Moderate Summary OT Impairments Balance,Functional Mobility, Grooming,Dressing,Toileting, Bathing,Toilet Transfers, Shower Transfers,Activity Tolerance Progress Towards Goals Progressing Toward Goals Assessment Summary Pt looking to go to skilled rehab today. Able to go over energy conservation techniques with pt. Goals Grooming Goal Independent Dressing Goal Independent Toileting Goal Independent Bathing Goal Independent Toilet Transfer Goal Independent Shower Transfer Goal Independent Days to Meet Goals 10 Frequency of Treatment Other frequency 5x a week Treatment Plan OT Treatment Plan ADL Training,Functional Mobility,Patient/Family Education,Discharge Planning Discharge Recommendations OT Discharge Recommendations SNF Rehab Transportation Needs at Discharge Private Vehicle,Wheelchair/ Cabulance
--- NOTE | 2024-06-13 11:55 | P.PN_ITS ---
Subjective Subjective Date Patient Seen: 06/13/24 Time Patient Seen: 08:10 Interval history: Patient with no complaints. Hoping to be able to leave the hospital soon Was up with skilled therapies yesterday Exam Vital Signs (past 8 hours): - 06/13/24 06:28 06/13/24 08:59 06/13/24 09:29 Temperature 98.0 F Pulse Rate 90 89 Respiratory Rate 16 Blood Pressure 162/73 H 162/73 H Pulse Oximetry 98 Oxygen Flow Rate 0 Oxygen Delivery Method Room Air Oxygen Flow Rate 0 Objective Labs 06/11/24 04:18 06/11/24 04:18 [facility] Medical History Chronic renal failure, stage 3a Controlled type 2 diabetes mellitus without complication Prostate cancer Anticoagulated on warfarin Family history of prostate cancer in father 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 Grandfather No problems noted. Social History marital status: number of children: 2 household members: spouse Smoking Status: Former smoker alcohol intake: current caffeine: No Assessment & Plan Assessment & Plan narrative: 1. Acute complicated UTI with weakness etcetera-growing Klebsiella. Switch to oral levofloxacin yesterday. Continue that until discharge 2. Acute kidney injury-resolved 3. Diabetes-adequate control of blood sugar for now. No changes in treatment. Plan to resume usual meds upon discharge to [facility] 4. Cardiac-echo done in March showed stability with left ventricular function. No clear evidence congestive heart failure at this time. Blood pressure bit elevated as is his heart rate from time to time. I have slowly increased his metoprolol and will do so again today slightly. 5. Possible depression-continue to treat other medical issues hoping that this will improve his mental health. Patient not eager to start antidepressant at this time 6. Anemia-improved after transfusion. Patient not really willing to participate in further evaluation. Will continue this conversation as an outpatient. No evidence of active large volume bleeding so I think this is an appropriate strategy 6. Disposition-patient I think he would benefit from fci placement to allow him to recover more fully before returning home. Currently he is requiring maximum resources at home and while he maybe better after treatment of his infection and transfusion to correct his anemia I still believe he would benefit from additional time in rehabilitation. In addition patient has an upcoming dental procedure basically to remove his teeth in preparation for alternatives. This is certainly going to set him back to some degree I am would like him to be much more recovered before undergoing that procedure Hopefully however he can be discharged to fci within the next 24 hours. We have been unfortunately waiting insurance approval for discharge. He was medically ready for discharge as of yesterday but insurance approval has delayed his discharge. He will stay in hospital until we have all the approval as necessary Time-Based Coding :: [TOTAL MINUTES] spent with patient and on the chart (including review of chart, obtaining history, exam, reviewing outside data, placing orders, documenting exam and treatment plan, and counseling patient) on [DATE]. Quality VTE Deep Vein Thrombosis/Pulmonary Embolism Present on Admission: No
--- NOTE | 2024-06-13 12:25 | PT-IP ANOTE ---
checked on pt and pt refused PT. stated that he has been getting up and walking with nursing staff when he uses the toilet. also stated that he is going to SNF today and that he does not want to do PT.
--- NOTE | 2024-06-13 13:23 | CM.DPC ---
DCP Cont. Reviewed EMR and team rounds for status updates. Plan is for pt to d/c to [facility], [place] tomorrow, 06/14. Notified Dr. Olivier of plan.
[2024-06-13] MEDS: levoFLOXacin 250 MG TABLET 750 MG PO (21:07)
[2024-06-14 06:00] VITALS: BP 145/86; PULSE 86; RESP 17; TEMP 37.1; O2SAT 96
[2024-06-14] MEDS: PANTOPRAZOLE DR 40 MG TABLET PO (06:41)
[2024-06-14 09:21] VITALS: BP 145/86
[2024-06-14] MEDS: METOPROLOL ER 50 MG TABLET 100 MG PO (09:21)
[2024-06-14] MEDS: OXYBUTYNIN 5 MG ER TAB 10 MG PO (09:21)
[2024-06-14] MEDS: MAGNESIUM OXIDE 400 MG TABLET PO (09:21)
[2024-06-14] MEDS: ASPIRIN EC 81 MG TABLET PO (09:22)
[2024-06-14 10:05] VITALS: BP 142/82
--- NOTE | 2024-06-14 10:32 | PC.NURSE ---
Addendum entered by Nelly Lowe R.N. 06/14/24 13:34: Transportation here Pt transfered to [facility] via W/C by their staff D/C in stable status. Addendum entered by Nelly Lowe R.N. 06/14/24 13:25: Report called to [facility]. Original Note: Pt A/O denies discomfort. SL intact/patent. CBG 178. Condition improving. Plans for discharge today Call light w/in reach. pt calls appropriately for needs Continue w/ plan of care.
--- NOTE | 2024-06-14 11:55 | CM.DPC ---
DCP Cont. Reviewed EMR and team rounds for status updates. Pt has been medically cleared for SNF rehab d/c. [employer] will be transporting him at 1:30pm. Faxed d/c clinicals, called pt's and updated her. No further CM needs identified at this time.
[2024-06-14 12:00] VITALS: BP 144/62; PULSE 81; RESP 16; TEMP 36.4; O2SAT 99
[2024-06-14] MEDS: INSULIN LISPRO 100 UNIT/ML 3ML VIAL SUBCUT (12:16)
== END 2024-06-14 13:36 | DRG 690 ==
LOC: ED 14:08 → AC 14:13
PROVIDERS: Admitting Provider Internal Medicine; Emergency Provider Emergency Medicine; PCP Internal Medicine; Referring Provider Emergency Medicine; Visit Provider Internal Medicine
DX: N39.0 Urinary tract infection, site not specified (principal); N17.9 Acute kidney failure, unspecified; I48.20 Chronic atrial fibrillation, unspecified; E11.9 Type 2 diabetes mellitus without complications; I25.10 Atherosclerotic heart disease of native coronary artery without angina pectoris; F32.A Depression, unspecified; E86.0 Dehydration; B96.1 Klebsiella pneumoniae [K. pneumoniae] as the cause of diseases classified elsewhere; C61 Malignant neoplasm of prostate; D63.8 Anemia in other chronic diseases classified elsewhere; E78.5 Hyperlipidemia, unspecified; Z95.2 Presence of prosthetic heart valve; Z91.81 History of falling; Z87.891 Personal history of nicotine dependence; Z79.84 Long term (current) use of oral hypoglycemic drugs
CPT/HCPCS: 36415; 36430; 71045; 74177; 80048; 80053; 80162; 81001; 82607; 82962; 83540; 83605; 83690; 83735; 83880; 84145; 84484; 85014; 85018; 85025; 85610; 86850; 86900; 86901; 87040; 87077; 87086; 87186; 87633; 93005; 96361; 96365; 97116; 97162; 97166; 97530; 97535; 99223; 99233; 99238; 99284; 99285; P9016; J0696; J1650; J1815; J2543; Q9967

== ENCOUNTER → 2024-07-25 10:25 | Outpatient (CLI) | payer MEDICARE, SELFPAY ==
[2024-06-08 15:17] VITALS: BMI 21.9
[2024-07-25 11:07] LABS: Add Manual Diff / Slide Review NO; Appearance Urine UA SL CLOUDY; Basophils Absolute Auto 100 /uL (0-100); Basophils Percent Auto 0.7 % (0-2); Bilirubin Urine UA NEGATIVE (NEGATIVE); Color Urine UA YELLOW; Eosinophils Absolute Auto 200 /uL (0-450); Eosinophils Percent Auto 2.2 % (2-4); Glucose Urine UA NEGATIVE (Negative); Hematocrit 32.8 % (41-53); Hemoglobin 10.7 g/dL (13.5-17.5); Ketones Urine UA NEGATIVE (NEGATIVE); Leukocyte Esterase Urine UA 2+ (NEGATIVE); Lymphocytes Absolute Auto 1100 /uL (1100-4500); Lymphocytes Percent Auto 13.7 % (25-40); Mean Corpuscular HGB Conc 32.8 % (30-36); Mean Corpuscular Hemoglobin 31.6 PG (26-34); Mean Corpuscular Volume 96.3 fL (80-100); Monocytes Absolute Auto 600 /uL (0-900); Monocytes Percent Auto 7.8 % (3-14); Neutrophils Absolute Auto 5800 /uL (1500-7000); Neutrophils Percent Auto 75.6 % (50-75); Nitrite Urine UA POSITIVE (Negative); Occult Blood Urine UA 1+ (Negative); Platelet Count 299 X10^3/uL (150-400); Protein Urine UA TRACE (Negative); Red Blood Cell Count 3.41 X10^6/uL (4.5-5.9); Red Cell Distribution Width 17.8 % (11.6-14.8); Specific Gravity Urine UA 1.015 (1.000-1.035); Urobilinogen Urine UA 0.2 E.U./dL (0.2); White Blood Cell Count 7.7 X10^3/uL (4.5-11.0); pH Urine UA 5.5 (4.5-8.0)
[2024-07-25 11:21] LABS: Bacteria Urine Occasional (0-1); Culture Indicated Urine Specimen Cultured; RBC Urine 0-1/HPF (0-5/HPF); Squamous Epithelial Cell Urine 1-5 /HPF (0-5/HPF); Urine Volume 10mL (spun); WBC Urine 30-100/HPF (0-5/HPF)
[2024-07-25 11:25] LABS: Alanine Aminotransferase 19 IU/L (<50); Albumin Globulin Ratio 1.1 (1.0-2.8); Alkaline Phosphatase 87 U/L (38-126); Aspartate Aminotransferase 57 IU/L (17-59); BUN Creatinine Ratio 20.2 (6-22); Bilirubin Total 0.9 mg/dL (0.2-1.3); Blood Urea Nitrogen 26 mg/dL (9-20); Calcium 9.8 mg/dL (8.4-10.2); Carbon Dioxide 27 mmol/L (22-32); Chloride 103 mmol/L (98-107); Estimated Glomerular Filt Rate 56 mL/min (>60); Globulin 3.6 g/dL (1.7-4.1); Glucose 176 mg/dL (80-110); HEMOLYSIS < 15 (0-50); Potassium 5.3 mmol/L (3.4-5.1); Sodium 134 mmol/L (137-145); Total Protein 7.6 g/dL (6.3-8.2)
[2024-07-25 11:35] LABS: Digoxin 0.6 ng/mL (0.8-2.0)
[2024-07-25 11:48] LABS: Hemoglobin A1C% w Est Avg Glu 5.4 % (4.0-6.0)
[2024-07-25 12:03] LABS: TSH w/ Reflex to FT4 3.76 uIU/mL (0.47-4.68)
== END ==
PROVIDERS: PCP Internal Medicine; Referring Provider Internal Medicine; Visit Provider Internal Medicine
DX: N17.9 Acute kidney failure, unspecified (principal); E11.9 Type 2 diabetes mellitus without complications; N39.0 Urinary tract infection, site not specified; N18.31 Chronic kidney disease, stage 3a; I48.20 Chronic atrial fibrillation, unspecified
CPT/HCPCS: 36415; 80053; 80162; 81001; 83036; 84443; 85025; 87077; 87086; 87147; 87186

== ENCOUNTER → 2024-08-10 13:50 | Outpatient (CLI) | payer MEDICARE, SELFPAY ==
[2024-06-08 15:17] VITALS: BMI 21.9
== END ==
PROVIDERS: PCP Internal Medicine; Referring Provider Internal Medicine; Visit Provider Internal Medicine
DX: R30.0 Dysuria (principal)
CPT/HCPCS: 87086

== ENCOUNTER → 2024-10-23 07:43 | Outpatient (CLI) | payer MEDICARE, SELFPAY ==
[2024-06-08 15:17] VITALS: BMI 21.9
[2024-10-23 08:51] LABS: Hematocrit 37.5 % (41-53); Hemoglobin 12.6 g/dL (13.5-17.5); Mean Corpuscular HGB Conc 33.6 % (30-36); Mean Corpuscular Hemoglobin 32.2 PG (26-34); Mean Corpuscular Volume 95.8 fL (80-100); Platelet Count 282 X10^3/uL (150-400); Red Blood Cell Count 3.91 X10^6/uL (4.5-5.9)
[2024-10-23 09:58] LABS: Alanine Aminotransferase 20 IU/L (<50); Albumin 4.2 g/dL (3.5-5.0); Albumin Globulin Ratio 1.3 (1.0-2.8); Alkaline Phosphatase 87 U/L (38-126); Aspartate Aminotransferase 51 IU/L (17-59); BUN Creatinine Ratio 23.8 (6-22); Bilirubin Total 0.9 mg/dL (0.2-1.3); Blood Urea Nitrogen 31 mg/dL (9-20); Calcium 9.3 mg/dL (8.4-10.2); Carbon Dioxide 24 mmol/L (22-32); Chloride 104 mmol/L (98-107); Estimated Glomerular Filt Rate 56 mL/min (>60); Globulin 3.2 g/dL (1.7-4.1); Glucose 125 mg/dL (80-110); HEMOLYSIS < 15 (0-50); Magnesium 2.3 mg/dL (1.6-2.3); Potassium 5.1 mmol/L (3.4-5.1); Sodium 137 mmol/L (137-145); Total Protein 7.4 g/dL (6.3-8.2)
[2024-10-25 10:09] LABS: Cholesterol, Total 175 mg/dL (100-199); HDL-Cholesterol 41 mg/dL (>39); HDL-Particle (Total) 30.2 umol/L (>=30.5); Historical Reading Comment: (.); LDL Particle 998 nmol/L (<1000); LDL Size 20.8 nm (>20.5); LDL-Cholsterol 105 mg/dL (0-99); LP-IR Score 75 (<=45); Small LDL- Particle 457 nmol/L (<=527); Triglycerides 167 mg/dL (0-149)
== END ==
PROVIDERS: PCP Internal Medicine; Referring Provider Specialist; Visit Provider Specialist
DX: E78.2 Mixed hyperlipidemia (principal); I48.20 Chronic atrial fibrillation, unspecified
CPT/HCPCS: 36415; 80053; 80061; 83704; 83735; 85027

== ENCOUNTER → 2024-11-13 14:59 | Outpatient (CLI) | payer MEDICARE, SELFPAY ==
[2024-11-13 14:55] VITALS: BMI 21.9
[2024-11-13 15:27] LABS: Hemoglobin A1C% w Est Avg Glu 6.2 % (4.0-6.0)
== END ==
PROVIDERS: PCP Internal Medicine; Referring Provider Internal Medicine; Visit Provider Internal Medicine
DX: E11.9 Type 2 diabetes mellitus without complications (principal)
CPT/HCPCS: 36415; 83036

== ENCOUNTER → 2025-02-12 12:56 | Outpatient (CLI) | payer MEDICARE, SELFPAY ==
[2024-11-13 14:55] VITALS: BMI 21.9
[2025-02-12 13:44] LABS: Add Manual Diff / Slide Review NO; Basophils Absolute Auto 100 /uL (0-100); Basophils Percent Auto 0.7 % (0-2); Eosinophils Absolute Auto 100 /uL (0-450); Eosinophils Percent Auto 1.2 % (2-4); Hemoglobin 13.9 g/dL (13.5-17.5); Lymphocytes Absolute Auto 1300 /uL (1100-4500); Lymphocytes Percent Auto 14.4 % (25-40); Mean Corpuscular HGB Conc 34.6 % (30-36); Mean Corpuscular Hemoglobin 32.7 PG (26-34); Mean Corpuscular Volume 94.4 fL (80-100); Monocytes Absolute Auto 700 /uL (0-900); Neutrophils Absolute Auto 7000 /uL (1500-7000); Neutrophils Percent Auto 75.7 % (50-75); Platelet Count 296 X10^3/uL (150-400); Red Blood Cell Count 4.24 X10^6/uL (4.5-5.9); Red Cell Distribution Width 13.8 % (11.6-14.8); White Blood Cell Count 9.2 X10^3/uL (4.5-11.0)
[2025-02-12 13:50] LABS: Hemoglobin A1C% w Est Avg Glu 8.6 % (4.0-6.0)
[2025-02-12 14:20] LABS: BUN Creatinine Ratio 32.4 (6-22); Blood Urea Nitrogen 45 mg/dL (9-20); Calcium 9.9 mg/dL (8.4-10.2); Carbon Dioxide 23 mmol/L (22-32); Chloride 95 mmol/L (98-107); Estimated Glomerular Filt Rate 51 mL/min (>60); Glucose 356 mg/dL (70-99); HEMOLYSIS < 15 (0-50); Potassium 5.5 mmol/L (3.4-5.1); Sodium 130 mmol/L (137-145)
== END ==
PROVIDERS: PCP Internal Medicine; Referring Provider Internal Medicine; Visit Provider Internal Medicine
DX: N18.31 Chronic kidney disease, stage 3a (principal); E78.2 Mixed hyperlipidemia; D63.8 Anemia in other chronic diseases classified elsewhere; E11.9 Type 2 diabetes mellitus without complications
CPT/HCPCS: 36415; 80048; 83036; 85025

== ENCOUNTER → 2025-05-10 10:12 | Outpatient (CLI) | payer MEDICARE, SELFPAY ==
[2024-11-13 14:55] VITALS: BMI 21.9
--- NOTE | 2025-05-10 10:14 | DI.ECHO.S_ITS ---
[facility]+ [facility] : : [address] : : [place] : : [id number] : : Phone: [phone] Echocardiogram Report + + :Name: HI LOERA Study Date: 05/10/2025 Height: 72 in : :[facility] ReadingLocation: Weight: 173 lb : : Gender: Male BSA: 2.0 m2 : :: 1945 Age: 79 yrs BP: 144/66 mmHg: :Reason For Study: NONRHEUMATIC AORTIC VALVE STENOSIS : :Ordering Physician: TEJA, : :LA Performed By: Oleksandr Shin : :Referring: LA LEZAMA : + + Interpretation Summary Left ventricular systolic function remains mild to moderately reduced with an estimated ejection fraction of 45 to 55% with gras-ym-[id number] variability. There is borderline global hypokinesis with scarring of the majority of the inferolateral wall that appears unchanged. Left ventricular volumes are at the upper limits of normal and slightly larger compared to the previous study. Diastolic function remains challenging to assess but filling pressures are likely elevated, possibly higher compared to the previous exam. The right ventricle appears normal in size with grossly normal systolic function. Right ventricular systolic pressure is estimated at 40 mmHg with a CVP of 3 mmHg, and is likely higher compared to the previous study. There is moderate to severe biatrial enlargement with both measuring slightly larger compared to the previous study. There is significant mitral valve calcification with a thickened and calcified chordae extending into the posteromedial papillary muscle but this appears unchanged. There is probable mild to moderate mitral regurgitation that is more prominent compared to the previous study. There is mild to moderate tricuspid regurgitation with an eccentric jet directed medially that is slightly more prominent. There is a bioprosthetic aortic valve that appears to be well-seated with normal transvalvular velocities that are similar to the previous exam but probable at least moderate aortic regurgitation, perhaps moderate to severe, but similar compared to the previous exam. The aortic root is moderately enlarged and the ascending aorta moderate to severely enlarged but both are similar to the previous exam. The patient was in atrial fibrillation at 60 to 85 bpm which is slower compared to the previous exam. Procedure: A two-dimensional transthoracic echocardiogram with color flow and Doppler was performed. The study quality was technically good. Comparison is made with the echocardiogram of 04/05/2024. The patient was in atrial fibrillation with heart rates between 58-88 bpm during the exam. Left Ventricle: Left ventricular size is at the upper limits of normal. Left ventricular wall thickness is mildly increased. The estimated left ventricular end diastolic volume is 143 mL compared to the previous 130 ml. End-systolic volume is 88 mL compared to the previous 68 mL. There is no ventricular septal defect visualized. Left ventricular systolic function is mild to moderately reduced. Left ventricular ejection fraction is estimated to be 45 to 55%. There are regional wall motion abnormalities as specified. There is borderline global hypokinesis of the left ventricle. There is thinning and akinesis with calcification of the majority of the inferolateral wall that appears unchanged from the previous exam. There has been no significant change from the previous study. Diastolic function could not be accurately assessed due to atrial fibrillation. Right Ventricle: The right ventricle is normal in size and function. This is similar compared to the previous study. Atria: The left atrium is severely dilated. Both atria have mildly increased in size since the prior echo exam. The right atrium is moderately dilated. There is no Doppler evidence for an interatrial shunt. Mitral Valve: There is mild to moderate mitral annular calcification. The mitral valve leaflets appear mildly thickened. The mitral valve leaflets are mildly calcified. The mitral valve chordae are thickened and/or calcified. There is mild to moderate mitral regurgitation. This is more prominent compared to the previous study. Aortic Valve: There is a bioprosthetic aortic valve. The prosthetic aortic valve is well-seated. The peak aortic velocity is 2.7 m/sec. The peak aortic velocity on the previous exam was 2.9 m/sec. The aortic valve mean gradient is 13 mmHg compared to the previous 15 mmHg. The severity ratio has decreased from 0.44 down to 0.36. There is at least moderate, but not severe, intravalvular regurgitation through prostethic valve. This appears unchanged from the previous study. Tricuspid Valve: The tricuspid valve leaflets are thin and pliable. There is mild to moderate tricuspid regurgitation. This is slightly more prominent compared to the previous study. The right ventricular systolic pressure is estimated to be at least 40 mmHg based on an estimated right atrial pressure of 3 mm Hg. Pulmonic Valve: The pulmonic valve is not well seen, but is grossly normal. There is trace pulmonic regurgitation. Great Vessels: The aortic root is moderately dilated. The ascending aorta is moderate-severely enlarged. This is unchanged compared to the previous study. The pulmonary artery is normal size. The IVC is of normal diameter and collapses greater than 50% with a sniff. This suggests a low right atrial pressure of 3 mm Hg. Pericardium/ Pleura There is no pericardial effusion. There is no pleural effusion. MMode/2D Measurements & Calculations LVIDd: 5.3 cm LVOT diam: 1.7 cm LVIDs: 4.1 cm Ao root diam: 4.0 cm FS: 22.2 % asc Aorta Diam: 4.7 cm EPSS: 1.8 cm IVSd: 1.3 cm LVPWd: 1.4 cm LV younger. diameter/BSA (cm/m^2): 2.7 LV sys. diameter/BSA (cm/m^2): 2.1 LA A2 area: 31.0 cm2 RA long axis: 6.9 cm LA A4 area: 29.9 cm2 RA area: 27.8 cm2 LA length (vol): 7.3 cm RA vol: 95.0 ml LA vol: 108.5 ml RA : 47.4 ml/m2 LA vol index: 54.2 ml/m2 IVC diam: 1.3 cm RVD1 (basal): 3.9 cm RVD2 (mid): 2.7 cm TAPSE: 1.5 cm Doppler Measurements & Calculations Ao V2 max: 273.0 cm/sec LVOT Max Oscar: 97.1 cm/sec Ao V2 mean: 170.2 cm/sec LV V1 max P.8 mmHg Ao max P.8 mmHg LV V1 VTI: 20.5 cm Ao mean P.1 mmHg ERICKA(I,D): 0.85 cm2 Ao V2 VTI: 57.0 cm ERICKA(V,D): 0.84 cm2 sev ratio: 0.36 ERICKA indexed to BSA (cm^2/m^2): 0.42 AI P1/2t: 434.7 msec AI dec slope: 337.1 cm/sec2 MV E max oscar: 124.3 cm/sec TR max oscar: 305.7 cm/sec MV A max oscar: 57.3 cm/sec TR max P.4 mmHg MV E/A: 2.2 PA V2 max: 97.8 cm/sec Med Peak E' Oscar: 2.5 cm/sec PA V2 mean: 59.2 cm/sec E/E' med: 50.6 PA mean P.6 mmHg Lat Peak E' Oscar: 9.3 cm/sec PA pr(Accel): 60.2 mmHg E/E' lat: 13.4 E/e' average: 32.0 MV dec time: 0.29 sec SV(OT): 48.4 ml Reading Physician:05:59 PM
== END ==
LOC: ECHO 10:13
PROVIDERS: Referring Provider Specialist; Visit Provider Specialist
DX: I08.3 Combined rheumatic disorders of mitral, aortic and tricuspid valves (principal); I77.810 Thoracic aortic ectasia; I77.89 Other specified disorders of arteries and arterioles; Z95.2 Presence of prosthetic heart valve
CPT/HCPCS: 93306